=== PATIENT | female | born 1950 | race Caucasian/White ===

== ENCOUNTER → 2020-03-31 13:46 | Outpatient (CLI) | payer MEDICARE, SELFPAY ==
--- NOTE | ~2020-03-31 | US_ITS ---
US breast BI complete 03/31/2020 14:43 Indication: Follow-up bilateral breast masses Procedure: High-resolution bilateral breast ultrasound Comparison: 10/24/2019 and 06/13/2017 Findings: Right breast: At 12:00, 4 cm from the nipple, there is a 4 mm oval hypoechoic nodule, unchanged. No i nternal vascularity or posterior features. At 1:00, 2 cm from the nipple there is a 7 mm cyst. At 3:0 0, 2 cm from the nipple there is an oval circumscribed minimally complicated cyst measuring 8 mm. The re are multiple additional simple and complicated cysts of both breasts. At 11:00, 4 cm from the nipp le, there is an oval circumscribed hypoechoic mass measuring 5 mm with slightly lobulated margins. Th ere is posterior acoustic enhancement. This mass is unchanged. Left breast ultrasound: At 6:00, 1 cm from the nipple there is a 5 mm hypoechoic mass measuring 5 mm, without significant tyrone nge from prior study. No internal vascularity or significant posterior features. Impression: 1: Stable likely benign bilateral breast masses. BI-RADS CATEGORY 3-PROBABLY BENIGN FINDING RECOMMENDATION: Six-month follow-up diagnostic bilateral mammogram and ultrasound recommended. Reviewed, dictated and finalized at location A. Impression: 1: Stable likely benign bilateral breast masses. BI-RADS CATEGORY 3-PROBABLY BENIGN FINDING RECOMMENDATION: Six-month follow-up diagnostic bilateral mammogram and ultrasou nd recommended.
== END ==
PROVIDERS: PCP Emergency Medicine; Visit Provider Emergency Medicine
DX: N63.0 Unspecified lump in unspecified breast (principal); R92.8 Other abnormal and inconclusive findings on diagnostic imaging of breast
CPT/HCPCS: 76641

== ENCOUNTER 2020-04-19 11:27 | Emergency (ER) | payer MEDICARE, SELFPAY ==
[2020-04-19 11:59] VITALS: BP 154/78; PULSE 91; RESP 18; TEMP 37.2; O2SAT 98
[2020-04-19 12:16] LABS: Basophils Percent Auto 0.5 % (0.2-1.2); Eosinophils Absolute Auto 0.1 K/mm3 (0-0.3); Eosinophils Percent Auto 0.9 % (0-4.4); Hematocrit 41.4 % (37.0-47.0); Hemoglobin 13.4 g/dL (12.0-15.0); Immature Granulocyte Absolute 0.01 K/mm3 (0.00-0.031); Immature Granulocyte Percent A 0.2 % (0-0.5); Lymphocytes Absolute Auto 1.96 K/mm3 (0.9-3.2); Lymphocytes Percent Auto 34.9 % (18.3-44.2); Mean Corpuscular HGB Conc 32.4 g/dl (32-36); Mean Corpuscular Hemoglobin 28.7 pg (26-34); Mean Corpuscular Volume 88.7 fl (80-100); Mean Platelet Volume 10.2 fl (7.4-10.4); Monocytes Absolute Auto 0.4 K/mm3 (0.1-0.6); Monocytes Percent Auto 6.4 % (2.6-8.5); Neutrophils Absolute Auto 3.2 K/mm3 (1.3-6.7); Neutrophils Percent Auto 57.1 % (45.5-73.1); Platelet Count Result 236 k/mm3 (150-375); Red Blood Count 4.67 M/mm3 (4.2-5.4); Red Cell Distribution Width 12.9 % (11.5-14.5); White Blood Count 5.6 K/mm3 (4.5-10.0)
[2020-04-19 12:27] LABS: Alanine Aminotransferase 14 U/L (4-35); Albumin Level 4.5 g/dL (3.5-5.1); Alkaline Phosphatase 92 U/L (38-126); Aspartate Amino Transferase 34 U/L (14-36); Bilirubin,Total 0.6 mg/dL (0.2-1.3); Blood Urea Nitrogen 8 mg/dL (7-17); Calcium 9.2 mg/dL (8.4-10.2); Carbon Dioxide 26 mmol/L (22-30); Chloride 100 mmol/L (98-107); Estimated CRCL calculation 59 ml/min; Estimated Glomerular Filt Rate > 60; Glucose 100 mg/dL (65-105); Magnesium 1.9 mg/dL (1.6-2.3); Potassium 4.3 mmol/L (3.4-5.0); Sodium 136 mmol/L (137-145)
[2020-04-19 14:03] LABS: Add Urine Microscopic? NO; Appearance Urine Clear (Clear); Bilirubin Urine Negative (Negative); Blood Urine Negative (Negative); Color Urine Straw (Yellow); Glucose Urine UA Negative (Negative); Ketones Urine Negative (Negative); Leukocyte Esterase Ur Negative LEU/UL (Negative); Nitrate Urine Negative (Negative); Protein Urine Negative (Negative); Specific Grav Ur 1.005 (1.001-1.035); Urobilinogen Urine Negative mg/dL (<2.0)
[2020-04-19 14:44] VITALS: BP 156/71; PULSE 76; RESP 18; O2SAT 98
--- NOTE | 2020-04-19 14:49 | ED.GENADULT ---
HPI - General Adult General Chief complaint: Recheck/Abnormal Lab/Rx Stated complaint: high blood sugar Time Seen by Provider: 04/19/20 14:35 History of Present Illness HPI narrative: Patient is a 69 y/o female complaining of high blood sugar for last 2-3 days. She states that her BS was in 500s 2 days ago. She denies any fever, frequent urination, dry mouth, abdominal pain or vomiting. There is no alleviating or exacerbation factor. She takes Metformin 850 mg twice daily. Related Data Home Medications Medication Instructions Recorded Confirmed aspirin 81 mg chewable tablet 81 mg PO .COMPLEX 11/19/19 biotin 10,000 mcg-keratin 100 mg See Rx Instructions .ROUTE .COMPLEX 11/19/19 tablet esomeprazole magnesium 40 mg 40 mg PO .daily in the am cap 11/19/19 capsule,delayed release estradiol 0.5 mg tablet 0.5 mg PO .COMPLEX 11/19/19 levothyroxine 50 mcg tablet 50 mcg PO DAILY 11/19/19 rosuvastatin 10 mg tablet 10 mg PO .daily at bedtime tablet 11/19/19 metformin 850 mg tablet 850 mg PO BID 04/19/20 Allergies Allergy/AdvReac Type Severity Reaction Status Date / Time propoxyphene Allergy Severe TONGUE Verified 04/19/20 14:44 SWELLING AND STOPPED BREATHING acetaminophen Allergy Unknown Unknown Unverified 04/19/20 14:44 [facility] Review of Systems Constitutional: Constitutional: Denies chills, Denies fever(s), Denies headache(s) and Denies weakness Eyes: Eyes: Denies blurry vision ENT: Denies headache(s) and Denies neck pain Cardiovascular: Cardiovascular: Denies chest pain and Denies dyspnea Respiratory: Respiratory: Denies cough and Denies dyspnea Gastrointestinal: Gastrointestinal: Denies abdominal pain, Denies diarrhea, Denies nausea and Denies vomiting Genitourinary: Genitourinary: Denies hematuria and Denies dysuria Musculoskeletal: Musculoskeletal: Denies back pain and Denies neck pain Neurologic: Denies headache(s) and Denies weakness PMFSH Past Medical History Medical History Arthritis Breast lump Cataracts, both eyes Diabetes Dizziness Fainting Forgetfulness Goiter Hernia High cholesterol Nervousness Thyroid-related proptosis Surgical History Surgical History H/O: hysterectomy (~1999) History of cataract surgery (~2003) History of cholecystectomy (~1989) Hx of appendectomy (~1979) Hx of tonsillectomy (~1974) Family History Family History Father , 65 Emphysema, unspecified Mother , 43 Heart attack Social History Social History Smoking status: Never smoker Alcohol intake: never Substance use: never Exam Const: General: no acute distress and well developed Orientation/consciousness: oriented to person, oriented to place, oriented to time and patient oriented x3 HENMT: Head: normocephalic Ears: external ears normal General nose exam: Normal external nose present Eyes: General: appearance normal, both eyes and all related structures Conjunctivae: conjunctivae normal Neck: Neck: normal visual inspection and full ROM Chest: Chest palpation & inspection: normal inspection of the chest and no tenderness Resp: Effort & Inspection: normal respiratory effort Auscultation: clear to auscultation bilaterally Cardio: Rate: regular rate Rhythm: regular rhythm GI: GI Palp: No abdominal tenderness and Yes Soft to palpation Skin: General skin exam: normal color and turgor normal Neuro: General: oriented to person, oriented to place, oriented to time and patient oriented x3 Cognition (Neuro): normal cognition Extrem: General: normal to inspection, full ROM and no pedal edema Psych: Appearance: grossly normal Mental Status: mental status grossly normal Affect: normal affect Course Vital Signs Vital si
[2020-04-19 15:54] VITALS: PULSE 78; RESP 16; O2SAT 98
== END 2020-04-19 15:55 | disposition home or self-care (01) ==
PROVIDERS: General Practice; Emergency Provider Emergency Medicine; PCP Emergency Medicine
DX: E11.9 Type 2 diabetes mellitus without complications (principal); Z79.84 Long term (current) use of oral hypoglycemic drugs; M19.90 Unspecified osteoarthritis, unspecified site; E04.9 Nontoxic goiter, unspecified
CPT/HCPCS: 36415; 80053; 81003; 82010; 83735; 84100; 85025; 99283

== ENCOUNTER 2020-05-14 15:26 | Emergency (ER) | payer MEDICARE, SELFPAY ==
--- NOTE | ~2020-05-14 | CT_ITS ---
EXAMINATION: CT abdomen pelvis w con EXAM DATE: 05/14/2020 19:17 INDICATION: Left lower quadrant pain for one month radiating to the left side of the chest. TECHNIQUE: Spiral CT of the abdomen and pelvis was performed following intravenous injection of 100 m L Omnipaque 350. Axial, coronal and sagittal images were reviewed. The dose-length product (DLP) fo r this examination was 470.21 mGy-cm. The exposure was tailored according to patient size (auto mA e xposure control), and iterative reconstruction (ASIR) was used as additional dose reduction technique . Comparison is made to prior examination from 10/09/2015. FINDINGS: There is right liver lobe cyst measuring 2 cm. The liver, spleen, adrenal glands and pancr eas are otherwise unremarkable. There are cholecystectomy clips. Portal and splenic veins are paten t. Kidneys enhance symmetrically. There is no hydronephrosis. The uterus is not identified and cote s likely been surgically resected. The bladder is unremarkable. There is no retroperitoneal or pelv ic lymphadenopathy. There is mild scattered arteriosclerotic disease. There is mild inflammation along the mesenteric side of the transverse colon, possible mild acute div erticulitis. Mild to moderate scattered sigmoid predominant colonic diverticulosis. The appendix is n ot positively visualized. There is no pericecal inflammatory change to suggest appendicitis. There is suspicion of gastric pyloric wall edema, could be peptic ulcer disease. There is small to moderat e sliding gastroesophageal hiatal hernia. There is expected amount of colonic stool. No free intra peritoneal gas. The heart is normal in size. There are no pericardial or pleural effusions. The l samantha bases are unremarkable. There are no osteoblastic or osteolytic lesions identified. IMPRESSION: 1. Suspicion of gastric pyloric peptic ulcer disease. 2. Possible transverse colonic acute uncomplicated diverticulitis. 3. These 2 findings have been indicated on axial images 57, 76 respectively. 4. Small to moderate hiatal hernia. Reviewed, dictated and finalized at location A.
[2020-05-14 16:04] VITALS: BP 140/82; PULSE 82; RESP 16; TEMP 37; O2SAT 100
[2020-05-14 16:19] LABS: Basophils Percent Auto 0.4 % (0.2-1.2); Eosinophils Absolute Auto 0.1 K/mm3 (0-0.3); Eosinophils Percent Auto 1.1 % (0-4.4); Hematocrit 39.1 % (37.0-47.0); Hemoglobin 12.6 g/dL (12.0-15.0); Immature Granulocyte Absolute 0.02 K/mm3 (0.00-0.031); Immature Granulocyte Percent A 0.3 % (0-0.5); Lymphocytes Absolute Auto 3.07 K/mm3 (0.9-3.2); Lymphocytes Percent Auto 42.5 % (18.3-44.2); Mean Corpuscular HGB Conc 32.2 g/dl (32-36); Mean Corpuscular Hemoglobin 29.2 pg (26-34); Mean Corpuscular Volume 90.5 fl (80-100); Mean Platelet Volume 10.2 fl (7.4-10.4); Monocytes Absolute Auto 0.5 K/mm3 (0.1-0.6); Monocytes Percent Auto 7.1 % (2.6-8.5); Neutrophils Absolute Auto 3.5 K/mm3 (1.3-6.7); Neutrophils Percent Auto 48.6 % (45.5-73.1); Platelet Count Result 228 k/mm3 (150-375); Red Blood Count 4.32 M/mm3 (4.2-5.4); Red Cell Distribution Width 12.7 % (11.5-14.5); White Blood Count 7.2 K/mm3 (4.5-10.0)
[2020-05-14 16:30] LABS: Alanine Aminotransferase 14 U/L (4-35); Albumin Level 4.2 g/dL (3.5-5.1); Alkaline Phosphatase 61 U/L (38-126); Anion Gap 8 mmol/L (8-16); Aspartate Amino Transferase 27 U/L (14-36); Bilirubin,Total 0.2 mg/dL (0.2-1.3); Blood Urea Nitrogen 10 mg/dL (7-17); Calcium 9.1 mg/dL (8.4-10.2); Carbon Dioxide 27 mmol/L (22-30); Chloride 103 mmol/L (98-107); Estimated CRCL calculation 51 ml/min; Estimated Glomerular Filt Rate > 60; Glucose 107 mg/dL (65-105); Lipase 73 U/L (23-300); Potassium 3.9 mmol/L (3.4-5.0); Sodium 138 mmol/L (137-145)
[2020-05-14 17:13] LABS: Add Urine Microscopic? NO; Appearance Urine Clear (Clear); Bilirubin Urine Negative (Negative); Blood Urine Negative (Negative); Color Urine Yellow (Yellow); Glucose Urine UA Negative (Negative); Ketones Urine Negative (Negative); Leukocyte Esterase Ur Negative LEU/UL (Negative); Nitrate Urine Negative (Negative); Protein Urine Negative (Negative); Specific Grav Ur 1.016 (1.001-1.035); Urobilinogen Urine Negative mg/dL (<2.0)
[2020-05-14 18:07] VITALS: BP 150/86; PULSE 85; RESP 18; O2SAT 96
--- NOTE | 2020-05-14 19:37 | ED.GENADULT ---
HPI - General Adult General Chief complaint: Abdominal Pain Stated complaint: left abd pain Time Seen by Provider: 05/14/20 17:52 History of Present Illness HPI narrative: Patient is a 69-year-old female who presents to the ER with left lower quadrant abdominal pain. Intermittent over the last month. Saw her GI doctor last week he said if patient had recurrent pain then she may need to come be evaluated. Pain came back again very sharp this morning. It only last for about 10 seconds at a time. There is no radiation. Is not associate with eating or drinking or urinating or stooling. Related Data Home Medications Medication Instructions Recorded Confirmed aspirin 81 mg chewable tablet 81 mg PO .COMPLEX 11/19/19 biotin 10,000 mcg-keratin 100 mg See Rx Instructions .ROUTE .COMPLEX 11/19/19 tablet esomeprazole magnesium 40 mg 40 mg PO .daily in the am cap 11/19/19 capsule,delayed release estradiol 0.5 mg tablet 0.5 mg PO .COMPLEX 11/19/19 levothyroxine 50 mcg tablet 50 mcg PO DAILY 11/19/19 rosuvastatin 10 mg tablet 10 mg PO .daily at bedtime tablet 11/19/19 metformin 850 mg tablet 850 mg PO BID 04/19/20 Allergies Allergy/AdvReac Type Severity Reaction Status Date / Time propoxyphene Allergy Severe TONGUE Verified 05/14/20 16:09 SWELLING AND STOPPED BREATHING Review of Systems Review of Systems: All systems reviewed & are unremarkable except as noted in HPI and below Constitutional: Constitutional: Denies chills, Denies fever(s) and Denies weakness ENT: Denies nasal congestion and Denies sore throat Gastrointestinal: Gastrointestinal: Reports abdominal pain, Denies diarrhea, Denies nausea and Denies vomiting PMFSH Social History Social History Smoking status: Never smoker Alcohol intake: never Substance use: never Gender identity (if verbalized by the patient): Female Exam Narrative: Exam Narrative: GENERAL: Well-appearing, well-nourished, and in no acute distress. HEAD: Normocephalic, atraumatic. ENT: Mucous membranes moist. CHEST: Clear to auscultation. No respiratory distress. HEART: Regular rate and rhythm. Normal peripheral pulses. ABDOMEN: Soft, ttp to LLQ w/o guarding, nondistended. EXTREMITIES: Normal range of motion. No edema. SKIN: Warm, dry, no rash. NEURO: Alert and oriented x3. Course Course Emergency Course: Patient informed of results. Discharge home. Vital Signs Vital signs: Vital Signs Temperature 98.6 F 05/14/20 16:04 Pulse Rate 82 05/14/20 16:04 Respiratory Rate 16 05/14/20 16:04 Blood Pressure 140/82 05/14/20 16:04 Pulse Oximetry 100 05/14/20 16:04 Temperature 98.6 F 05/14/20 16:04 Pulse Rate 85 05/14/20 18:07 Respiratory Rate 18 05/14/20 18:07 Blood Pressure 150/86 H 05/14/20 18:07 Pulse Oximetry 96 05/14/20 18:07 Medical Decision Making Vital Signs Vital Signs: Vital Signs Temperature 98.6 F 05/14/20 16:04 Pulse Rate 82 05/14/20 16:04 Respiratory Rate 16 05/14/20 16:04 Blood Pressure 140/82 05/14/20 16:04 Pulse Oximetry 100 05/14/20 16:04 Temperature 98.6 F 05/14/20 16:04 Pulse Rate 85 05/14/20 18:07 Respiratory Rate 18 05/14/20 18:07 Blood Pressure 150/86 H 05/14/20 18:07 Pulse Oximetry 96 05/14/20 18:07 Lab Data Result diagrams: 05/14/20 16:10 05/14/20 16:10 Labs: Lab Results 05/14/20 05/14/20 05/14/20 Range/Units 16:10 16:10 16:25 WBC 7.2 (4.5-10.0) K/mm3 RBC 4.32 (4.2-5.4) M/mm3 Hgb 12.6 (12.0-15.0) g/dL Hct 39.1 (37.0-47.0) % MCV 90.5 (80-100) fl MCH 29.2 (26-34) pg MCHC 32.2 (32-36) g/dl RDW 12.7 (11.5-14.5) % Plt Count 228 (150-375) k/mm3 MPV 10.2 (7.4-10.4) fl Immature Gran % (Auto) 0.3 (0-0.5) % Neut % (Auto) 48.6 (45.5-73.1) % Lymph % (Auto) 42.5 (18.3-44.2) % [place] % (Auto) 7.1
[2020-05-14 20:23] VITALS: BP 143/70; PULSE 82; RESP 17; O2SAT 95
== END 2020-05-14 20:24 | disposition home or self-care (01) ==
PROVIDERS: Emergency Provider Emergency Medicine; PCP Emergency Medicine
DX: K57.92 Diverticulitis of intestine, part unspecified, without perforation or abscess without bleeding (principal); K25.9 Gastric ulcer, unspecified as acute or chronic, without hemorrhage or perforation; K44.9 Diaphragmatic hernia without obstruction or gangrene
CPT/HCPCS: 36415; 74177; 80053; 81003; 83690; 85025; 99284; Q9967

== ENCOUNTER 2020-08-13 10:53 | Emergency (ER) | payer MEDICARE, SELFPAY ==
[2020-08-13] VITALS (18 sets, daily range): BP systolic 124–141; BP diastolic 58–86; PULSE 76–122; RESP 16–24; TEMP 36.7; O2SAT 94–99
--- NOTE | ~2020-08-13 | CT_ITS ---
EXAMINATION: CTA chest PE protocol DATE: 08/13/2020 12:58 INDICATION: Chest pain. Cough. TECHNIQUE: Computed tomography angiography (CTA) of the chest was performed with 100 mL Omnipaque-350 intravenous contrast timed to evaluate the pulmonary arteries. Coronal maximum intensity projection 3D-reconstructions were created by the technologist. Automated exposure control and iterative reconst ruction technique were employed. The dose-length product was 194.82 mGy-cm. COMPARISON: CT abdomen and pelvis 03/14/2020 FINDINGS: There is mild emphysema. There is mild scarring at the lung apices. There is mild atelectas is bilaterally. There is a small groundglass opacity in superior segment right lower lobe. There are mild peripheral groundglass opacities in right upper lobe. There are patchy airspace opacities in lef t upper lobe and left lower lobe, worse in the lower lobe. Calcified right lung nodules and calcified right hilar and mediastinal lymph nodes are consistent with old granulomatous disease. No pleural ef fusion. The heart size is normal. No pericardial effusion. There is a moderate-sized sliding hiatal h ernia. There are changes of cholecystectomy. There is a 1.8 cm cyst in the liver. There is no pulmona ry embolus. There is mild thoracic spondylosis. IMPRESSION: 1. No pulmonary embolus. 2. Scattered groundglass opacities in the lungs, left worse than right, consistent with atypical pneu monia such as COVID-19 pneumonia. 3. Mild emphysema. 4. Moderate-sized sliding hiatal hernia. Reviewed, dictated and finalized at location A. RCOLLAR BASTER IMPRESSION: 1. No pulmonary embolus. 2. Scattered groundglass opacities in the lungs, left worse than right, consist ent with atypical pneumonia such as COVID-19 pneumonia. 3. Mild emphysema. 4. Moderate-sized sliding hiatal hernia.
--- NOTE | ~2020-08-13 | XR_ITS ---
EXAMINATION: XR chest 1V portable DATE: 08/13/2020 11:45 INDICATION: Chest pain and fever. TECHNIQUE: A single frontal view of the chest was obtained. COMPARISON: Chest 2 views 04/09/2019, CT abdomen and pelvis 05/14/2020, chest CT 06/14/2013 FINDINGS: There are lucencies in the upper lobes, consistent with emphysema. No pleural effusion or p neumothorax. The heart size is normal. IMPRESSION: 1. Emphysema. Reviewed, dictated and finalized at location A. BER MAGISTRATE IMPRESSION: 1. Emphysema.
--- NOTE | 2020-08-13 11:08 | ECG_ITS ---
Measurements Intervals [place] Rate: 108 P: 47 CA: 187 QRS: 47 QRSD: 93 T: 44 QT: 321 QTc: 431 Interpretive Statements SINUS TACHYCARDIA ABNORMAL ECG Electronically Signed On 08-13-2020 11:28:49 [employer] by Kalyan Khan D.O.
--- NOTE | 2020-08-13 11:12 | ED.WEAKNESS ---
HPI - Weakness General Chief complaint: Weakness Stated complaint: I think I have Covid Time Seen by Provider: 08/13/20 11:09 Source: patient Mode of arrival: ambulatory Limitations: no limitations History of Present Illness HPI Narrative: Patient is a 69-year-old female who presents for evaluation of myalgias, intermittent fever, and an earlier episode of chest pain this morning that has since resolved. Patient states that her physician, Dr. Carpenter, referred her for a Covid swab given her symptoms have been present for over a week, however she started to have chest pain on her way to the testing center, thus decided to come to the emergency department. Patient denies any current chest pain. She states it felt as if a bubble was in her chest. Chest pain was this morning, and pt had symptoms within four hour window. She denied any radiation of the pain to her jaw, back or shoulder. She stated it was mostly over her central chest. She denies any abdominal pain, associated vomiting or diaphoresis. She has had intermittent fever as well as nausea. She denies any numbness, states she feels diffusely weak but has been able to tolerate oral intake and has been walking without difficulty. She reports dry cough as well. She reports loss of sense of taste and smell. Related Data Home Medications Medication Instructions Recorded Confirmed aspirin 81 mg chewable tablet 81 mg PO .COMPLEX 11/19/19 biotin 10,000 mcg-keratin 100 mg See Rx Instructions .ROUTE .COMPLEX 11/19/19 tablet levothyroxine 50 mcg tablet 50 mcg PO DAILY 11/19/19 rosuvastatin 10 mg tablet 10 mg PO .daily at bedtime tablet 11/19/19 metformin 850 mg tablet 850 mg PO BID 04/19/20 Allergies Allergy/AdvReac Type Severity Reaction Status Date / Time propoxyphene Allergy Severe TONGUE Verified 05/14/20 16:09 SWELLING AND STOPPED BREATHING Review of Systems Review of Systems: Narrative: CONSTITUTIONAL: Reports fever and chills EYES: Denies visual changes, redness, or discharge. ENT: Reports rhinorrhea and congestion CARDIOVASCULAR: Chest pain currently resolved RESPIRATORY: Reports dry cough and shortness of breath GASTROINTESTINAL: Denies abdominal pain, reports nausea without vomiting GENITOURINARY: Denies dysuria or hematuria. SKIN: Denies rash or itching. MUSCULOSKELETAL: Denies back pain, joint pain, reports myalgias NEUROLOGIC: Denies headache, numbness, or weakness. PMFSH Past Medical History Medical History (Updated 08/13/20 @ 13:37 by Marina Quiros MD) Arthritis Breast lump Cataracts, both eyes Diabetes Dizziness Fainting Forgetfulness Goiter Hernia High cholesterol Nervousness Thyroid-related proptosis Surgical History Surgical History H/O: hysterectomy (~1999) History of cataract surgery (~2003) History of cholecystectomy (~1989) Hx of appendectomy (~1979) Hx of tonsillectomy (~1974) Family History Family History Father , 65 Emphysema, unspecified Mother , 43 Heart attack Social History Social History Smoking status: Never smoker Alcohol intake: never Substance use: never Gender identity (if verbalized by the patient): Female Exam Narrative: Exam Narrative: GENERAL: Awake, alert, conversant HEAD: Normocephalic, atraumatic. EYES: PERRLA and EOMI. ENT: Nares clear, no rhinorrhea or epistaxis. Mucous membranes moist. NECK: Supple. CHEST: No respiratory distress, breathing even and non labored HEART: Tachycardic rate, sinus rhythm ABDOMEN:Non distended, non tender EXTREMITIES: Normal range of motion. No edema. SKIN: Warm, dry, no rash. NEURO:No focal deficits. Alert and oriented x3. Extremity strength is 5 out of 5 bilateral upper and lower extremities. Ambulatory with a narrow based, steady gait.
[2020-08-13 11:27] LABS: Basophils Percent Auto 0.3 % (0.2-1.2); Eosinophils Percent Auto 0.3 % (0-4.4); Hematocrit 38.4 % (37.0-47.0); Hemoglobin 12.5 g/dL (12.0-15.0); Immature Granulocyte Absolute 0.02 K/mm3 (0.00-0.031); Immature Granulocyte Percent A 0.5 % (0-0.5); Lymphocytes Percent Auto 33.8 % (18.3-44.2); Mean Corpuscular HGB Conc 32.6 g/dl (32-36); Mean Corpuscular Hemoglobin 29.3 pg (26-34); Mean Corpuscular Volume 90.1 fl (80-100); Mean Platelet Volume 9.8 fl (7.4-10.4); Monocytes Absolute Auto 0.4 K/mm3 (0.1-0.6); Monocytes Percent Auto 10.6 % (2.6-8.5); Neutrophils Absolute Auto 2.1 K/mm3 (1.3-6.7); Neutrophils Percent Auto 54.5 % (45.5-73.1); Platelet Count Result 151 k/mm3 (150-375); Red Blood Count 4.26 M/mm3 (4.2-5.4); White Blood Count 3.9 K/mm3 (4.5-10.0)
[2020-08-13 11:39] LABS: Alanine Aminotransferase 17 U/L (4-35); Alkaline Phosphatase 70 U/L (38-126); Anion Gap 9 mmol/L (8-16); Aspartate Amino Transferase 39 U/L (14-36); Bilirubin,Total 0.5 mg/dL (0.2-1.3); Blood Urea Nitrogen 8 mg/dL (7-17); Calcium 8.9 mg/dL (8.4-10.2); Carbon Dioxide 28 mmol/L (22-30); Chloride 96 mmol/L (98-107); Estimated CRCL calculation 59 ml/min; Estimated Glomerular Filt Rate > 60; Glucose 96 mg/dL (65-105); Potassium 3.7 mmol/L (3.4-5.0); Sodium 133 mmol/L (137-145)
[2020-08-13] MEDS: SODIUM CHLORIDE 0.9% IV 1,000 ML 999 ML IV CONT (11:42)
[2020-08-13 11:45] LABS: INR 0.9; Prothrombin Time 13.2 Seconds (11.1-14.7)
[2020-08-13 11:46] LABS: Partial Thromboplastin Time 27.5 SECONDS (22.3-36.8)
[2020-08-13 11:48] LABS: D Dimer 0.61 ug/mL (<0.48)
[2020-08-13 12:26] LABS: Troponin I < 0.012 ng/mL (0.000-0.034)
--- NOTE | 2020-08-13 14:10 | PC.NURSE ---
REPORT TO VANIA PRUITT AT THIS TIME, SHE HAS ASSUMED PT CARE.
[2020-08-13 14:49] LABS: Troponin I < 0.012 ng/mL (0.000-0.034)
[2020-08-14 01:02] LABS: SARS-CoV-2 RNA PCR Positive
== END 2020-08-13 15:09 | disposition home or self-care (01) ==
PROVIDERS: Emergency Provider Emergency Medicine; PCP Emergency Medicine
DX: U07.1 COVID-19 (principal); R50.9 Fever, unspecified; M19.90 Unspecified osteoarthritis, unspecified site; E78.00 Pure hypercholesterolemia, unspecified; E11.9 Type 2 diabetes mellitus without complications; Z98.49 Cataract extraction status, unspecified eye; Z79.84 Long term (current) use of oral hypoglycemic drugs; Z79.82 Long term (current) use of aspirin; J43.9 Emphysema, unspecified; K44.9 Diaphragmatic hernia without obstruction or gangrene; R00.0 Tachycardia, unspecified; R91.8 Other nonspecific abnormal finding of lung field
CPT/HCPCS: 36415; 71045; 71275; 80053; 84484; 85025; 85380; 85610; 85730; 87635; 93005; 96360; 99284; C9803; J7030; Q9967; U0003

== ENCOUNTER 2020-11-16 12:38 | Observation (INO) | payer MEDICARE, SELFPAY ==
[2020-11-16] VITALS (22 sets, daily range): BP systolic 130–149; BP diastolic 54–122; PULSE 72–100; RESP 10–24; TEMP 36.2–36.4; O2SAT 95–100; BMI 22.8
--- NOTE | ~2020-11-16 | XR_ITS ---
EXAMINATION: XR chest 2V DATE: 11/16/2020 13:55 INDICATION: Chest pain TECHNIQUE: AP and lateral views of the chest are obtained. COMPARISON: 08/13/2020 FINDINGS: The lungs are free of acute opacities. Calcified pulmonary nodules are consistent with old granulomatous disease. There is no pleural effusion or pneumothorax. The cardiomediastinal silhouette is normal. There is mild thoracic spondylosis. Cholecystectomy clips are noted. IMPRESSION: 1. No acute cardiopulmonary abnormality. Reviewed, dictated and finalized at location A. Y EXTRACTOR
--- NOTE | 2020-11-16 13:02 | ECG_ITS ---
Measurements Intervals [place] Rate: 90 P: 48 TN: 176 QRS: 51 QRSD: 101 T: 55 QT: 350 QTc: 430 Interpretive Statements SINUS RHYTHM BORDERLINE ST ABNORMALITY- ANTERIOR LEADS BASELINE WANDER- II, III, AVF, V5-V6 BORDERLINE ECG Electronically Signed On 11-16-2020 13:04:42 [employer] by Kalyan Khan D.O.
[2020-11-16] MEDS: ASPIRIN 81 MG CHEWABLE TABLET 324 MG PO (13:25)
--- NOTE | 2020-11-16 13:29 | ED.CHESTPAIN ---
HPI - Chest Pain General Chief Complaint: Chest Pain Stated Complaint: chest pain Time Seen by Provider: 11/16/20 12:53 Source: patient Mode of arrival: ambulatory Limitations: no limitations History of Present Illness HPI narrative: This patient is a 69 year old female with history of hyperlipidemia, Diabetes, valvular disease who presents for evaluation of substernal chest pain. She developed pain at midnight last night, and it was constant until 9 am this morning. She describes pain has burning. She reports associated diaphoresis. She denies exertion or cough or inspiratory as exacerbating factor. She denies chest pain currently. She denies nausea, vomiting or fever. She took mariah seltzer and her pain has resolved. She is scheduled to see Dr Khan on November 26 for evaluation leaky aortic valve. Related Data Home Medications Medication Instructions Recorded Confirmed aspirin 81 mg chewable tablet 81 mg PO .COMPLEX 11/19/19 10/27/20 biotin 10,000 mcg-keratin 100 mg See Rx Instructions .ROUTE .COMPLEX 11/19/19 10/27/20 tablet levothyroxine 50 mcg tablet 50 mcg PO DAILY 11/19/19 10/27/20 rosuvastatin 10 mg tablet 10 mg PO .daily at bedtime tablet 11/19/19 10/27/20 metformin 850 mg tablet 850 mg PO BID 04/19/20 10/27/20 Allergies Allergy/AdvReac Type Severity Reaction Status Date / Time propoxyphene Allergy Severe TONGUE Verified 11/16/20 13:59 SWELLING AND STOPPED BREATHING Review of Systems Review of Systems: All systems reviewed & are unremarkable except as noted in HPI and below Constitutional: Constitutional: Denies chills and Denies fever(s) Cardiovascular: Cardiovascular: Reports chest pain and Denies radiating jaw, neck or arm pain Respiratory: Respiratory: Denies cough and Denies dyspnea PMF Past Medical History Medical History (Updated 11/16/20 @ 15:03 by Kalyan Khan DO) Arthritis Breast lump Cataracts, both eyes Diabetes Dizziness Fainting Forgetfulness Goiter Hernia High cholesterol Nervousness Thyroid-related proptosis Surgical History Surgical History H/O: hysterectomy (~1999) History of cataract surgery (~2003) History of cholecystectomy (~1989) Hx of appendectomy (~1979) Hx of tonsillectomy (~1974) Family History Family History Father , 65 Emphysema, unspecified Mother , 43 Heart attack Social History Social History Smoking status: Former smoker Alcohol intake: never Substance use: never Gender identity (if verbalized by the patient): Female Exam Narrative: Exam Narrative: GENERAL: Well-appearing, well-nourished, and in no acute distress. HEAD: Normocephalic, atraumatic EYES: PERRLA and EOMI, conjunctiva clear without discharge THROAT:Mucous membranes moist, Oropharynx normal without erythema, exudate, peritonsillar swelling or fluctuance NECK: Supple, without lymphadenopathy or mass RESPIRATORY: No respiratory distress, Airway patent, Respirations non-labored, Clear to auscultation without rales, rhonchi or wheeze HEART: Regular rate and rhythm. No murmur heard. Normal peripheral pulses. ABDOMEN: Soft, nontender, nondistended, normal active bowel sounds. No masses. No rebound or guarding, No organomegaly. EXTREMITIES: No edema, normal strength with full range of motion. SKIN: Warm, dry, normal color without rash NEURO: Alert and oriented x3. CN 2-12 grossly intact. No focal deficits. PSYCH: Normal mood and affect. Course Reevaluation(s) Reevaluation #1: I discussed with patient that she will be admitted for evaluation of chest pain due to high risk. She is agreeable. Date: 11/16/20 Time: 14:36 Consultations Consultation #1: Dr. Khan agrees to consult and he is in ER now to evaluation patient. He may perform stress test rae
[2020-11-16 13:37] LABS: Basophils Percent Auto 0.4 % (0.2-1.2); Eosinophils Absolute Auto 0.1 K/mm3 (0-0.3); Eosinophils Percent Auto 0.7 % (0-4.4); Hemoglobin 12.7 g/dL (12.0-15.0); Immature Granulocyte Absolute 0.02 K/mm3 (0.00-0.031); Immature Granulocyte Percent A 0.3 % (0-0.5); Lymphocytes Absolute Auto 2.39 K/mm3 (0.9-3.2); Lymphocytes Percent Auto 35.3 % (18.3-44.2); Mean Corpuscular HGB Conc 32.6 g/dl (32-36); Mean Corpuscular Hemoglobin 29.1 pg (26-34); Mean Corpuscular Volume 89.4 fl (80-100); Mean Platelet Volume 10.8 fl (7.4-10.4); Monocytes Absolute Auto 0.5 K/mm3 (0.1-0.6); Monocytes Percent Auto 7.2 % (2.6-8.5); Neutrophils Absolute Auto 3.8 K/mm3 (1.3-6.7); Neutrophils Percent Auto 56.1 % (45.5-73.1); Platelet Count Result 221 k/mm3 (150-375); Red Blood Count 4.36 M/mm3 (4.2-5.4); Red Cell Distribution Width 12.7 % (11.5-14.5); White Blood Count 6.8 K/mm3 (4.5-10.0)
[2020-11-16 13:49] LABS: Alanine Aminotransferase 15 U/L (4-35); Albumin Level 4.2 g/dL (3.5-5.1); Alkaline Phosphatase 59 U/L (38-126); Anion Gap 7 mmol/L (8-16); Aspartate Amino Transferase 31 U/L (14-36); Bilirubin,Total 0.5 mg/dL (0.2-1.3); Blood Urea Nitrogen 18 mg/dL (7-17); Calcium 9.5 mg/dL (8.4-10.2); Carbon Dioxide 30 mmol/L (22-30); Chloride 103 mmol/L (98-107); Estimated CRCL calculation 59 ml/min; Estimated Glomerular Filt Rate > 60; Glucose 96 mg/dL (65-105); Lipase 111 U/L (23-300); Potassium 4.3 mmol/L (3.4-5.0); Sodium 140 mmol/L (137-145)
[2020-11-16 13:59] LABS: INR 0.9; Prothrombin Time 12.2 Seconds (11.1-14.7)
[2020-11-16 14:00] LABS: Partial Thromboplastin Time 22.5 SECONDS (22.3-36.8)
[2020-11-16 14:01] LABS: Troponin I < 0.012 ng/mL (0.000-0.034)
--- NOTE | 2020-11-16 14:36 | PC.NURSE ---
resting on stretcher. BP cuff adjusted. changed to 30 minute interval due to patient's complaints. planning for possible admission. denies pain at this time.
--- NOTE | 2020-11-16 15:05 | PM.CNCAR ---
Assessment and Plan Assessment and plan (1) Chest pain: Code(s): R07.9 - Chest pain, unspecified Status: Acute Assessment and Plan: Atypical. Could be heartburn related. 1st EKG and troponin are unremarkable. If next 2 sets are negative, obtain stress echo in AM. (2) Aortic regurgitation: Code(s): I35.1 - Nonrheumatic aortic (valve) insufficiency Status: Acute Assessment and Plan: Obtain echo. (3) HTN (hypertension): Code(s): I10 - Essential (primary) hypertension Status: Acute Assessment and Plan: Stable. (4) HLD (hyperlipidemia): Code(s): E78.5 - Hyperlipidemia, unspecified Status: Acute History of Present Illness History of Present Illness Consult date/time: 11/16/20 15:05 Reason for consult: Chest pain. 69 yr old phu who is my regular cardiology patient who I saw for the first time a few weeks ago presents to ED with chest pain. She has a history of DM, hypertension, dyslipidemia, had covid on 08/13/20. Reports that she went to bed last night at midnight and immediately she felt an ache/burning sensation in mid lower chest region. Currently it is at 1-2/10 in intensity. She admits to having heart cruz with hiatal hernia but this is a little different from that. Thus far EKG and first troponin are unremarkable. She has recovered fully from covid symptoms of severe fatigue and sob. She can walk 1 mile without any problems. Reports ongoing intermittent palpitations at night that wakes her up since a year ago when she was evaluated by Dr. Gleason at [place] with a holter and echo, and was told she had a leaky valve. It happens about twice a week. She reports ongoing for the past year mild discomfort below her left rib cage at rest. Denies orthopnea, PND, edema, dizziness. Cardiovascular studies: 11/16/20 EKG: Sinus rhythm, borderline ST abnormality in anterior leads. 06/12/19 Echo at [facility]: EF 60%, grade I diastolic dysfunction, mod AI ,mild TR. Reason For Visit: chest pain Review of Systems Review of Systems: All systems reviewed & are unremarkable except as noted in HPI and below Constitutional: Constitutional: Reports as per HPI, Denies chills and Denies fatigue Cardiovascular: Cardiovascular: Reports as per HPI, Reports chest pain, Denies claudication and Denies leg edema Respiratory: Respiratory: Reports as per HPI and Denies dyspnea Gastrointestinal: Gastrointestinal: Reports as per HPI and Reports heartburn Genitourinary: Genitourinary: Reports as per HPI and Denies urinary frequency Neurologic: Reports as per HPI, Denies dizziness and Denies syncope [facility] Past Medical History Medical History (Updated 11/16/20 @ 15:03 by Kalyan Khan DO) Arthritis Breast lump Cataracts, both eyes Diabetes Dizziness Fainting Forgetfulness Goiter Hernia High cholesterol Nervousness Thyroid-related proptosis Surgical History Surgical History H/O: hysterectomy (~1999) History of cataract surgery (~2003) History of cholecystectomy (~1989) Hx of appendectomy (~1979) Hx of tonsillectomy (~1974) Family History Family History Father , 65 Emphysema, unspecified Mother , 43 Heart attack Social History Social History Smoking status: Former smoker Alcohol intake: never Substance use: never Gender identity (if verbalized by the patient): Female Meds Home Medications and Allergies Home Medications Medication Instructions Recorded Confirmed Type aspirin 81 mg chewable tablet 81 mg PO .COMPLEX 11/19/19 10/27/20 History biotin 10,000 mcg-keratin 100 mg See Rx Instructions .ROUTE .COMPLEX 11/19/19 10/27/20 History tablet levothyroxine 50 mcg tablet 50 mcg PO DAILY 11/19/19 10/27/20 History rosuvastatin 10 mg tablet 10 mg PO .
[2020-11-16 16:53] LABS: Troponin I < 0.012 ng/mL (0.000-0.034)
--- NOTE | 2020-11-16 17:04 | PC.NURSE ---
attempted to call report. RN not ready. SBAR just received.
[2020-11-16 18:18] LABS: Glucose Point of Care 147 (65-105)
--- NOTE | 2020-11-16 18:21 | ADMGEN ---
This patient, Naina Douglas, was admitted to IMU Room 206-01 on 11/16/2020 at 1725. Patient/family oriented to hospital policies and general routines including ID bracelet, bed and alarms, visiting hours, pain management, procedures, bathroom and other care routines, personal items, smoking policy, room service/diet, and visiting hours. Information on how to activate the Rapid Response Team has been discussed. Patient/Family are encouraged to report perceived risks to care and to ask questions if they do not understand what they are told or what they should do.
--- NOTE | 2020-11-16 19:41 | PM.IMHP ---
H&P: HPI History of Present Illness Date/Time: 11/16/20 19:41 Chief Complaint: Chest pain Narrative: Naina Douglas is a 69 year old female of valvular disease, hyperlipidemia and diabetes. She also has a history of GERD and peptic ulcer disease. The patient typically does not have any problems with her acid reflux. She stated that she did not eat anything out of the ordinary she had a thin pork chop for dinner and then as a snack she had Cheerios. She said she laid down to rest and about midnight she started to have some midsternal chest pain. It was constant dull 9:00 a.m. this morning. She stated she was also diaphoretic. She did was a burning discomfort. It was not reproducible. She did have any nausea vomiting or diarrhea. She took [place] and it did help some. She sees Dr. Khan as her carbonizer tester and has an appointment coming up November for her valvular disease. Her cardiac enzymes are negative x2. She currently is not having any chest discomfort. Rhythm borderline ST abnormality, anterior leads. Within EF of 60%. Mildly thickened aortic valve leaflets. Her carbonizer tester had been consulted and has seen the patient. If her troponins are negative patient will receive a stress echo in the morning. She can walk 1 mile without any problems. As per cardiology notes the following was read as: Reports ongoing intermittent palpitations at night that wakes her up since a year ago when she was evaluated by Dr. Gleason at [place] with a holter and echo, and was told she had a leaky valve. It happens about twice a week. She reports ongoing for the past year mild discomfort below her left rib cage at rest. Denies orthopnea, PND, edema, dizziness. The patient was given an aspirin in the emergency room. She is being admitted to observation date of service 11/16/2020. Review of Systems Review of Systems: All systems reviewed & are unremarkable except as noted in HPI and below Constitutional: Constitutional: Reports as per HPI and Reports no additional constitutional complaints Eyes: Eyes: Reports as per HPI and Reports no additional eye complaints ENT: Reports system reviewed and no additional complaints, except as documented and Reports Normal hearing present Cardiovascular: Cardiovascular: Reports no additional cardiovascular complaints Respiratory: Respiratory: Reports no additional respiratory complaints and Reports no additional respiratory complaints Gastrointestinal: Gastrointestinal: Reports as per HPI and Reports no additional gastrointestinal complaints Musculoskeletal: Musculoskeletal: Reports no additional musculoskeletal complaints Integumentary/Breasts: Skin/Breast: Reports system reviewed and no additional complaints, except as docu and Reports as per HPI Neurologic: Reports system reviewed and no additional complaints, except as documented, Reports as per HPI and Reports Normal hearing present Psychiatric: Psychiatric: Reports no additional psychiatric complaints and Reports as per HPI Endocrine: Endocrine: Reports no additional endocrine complaints Hematologic/Lymphatic: Hematologic/Lymphatic: Reports no additional hematologic/lymphatic complaints Allergic/Immunologic: Allergic/Immunologic: Reports no additional allergic/immunologic complaints [facility] Past Medical History Medical History (Updated 11/16/20 @ 19:51 by Darcy Browne NP) Arthritis Breast lump Cataracts, both eyes Diabetes Dizziness Fainting Forgetfulness Goiter Hernia High cholesterol Hypothyroidism Nervousness Thyroid-related proptosis Surgical History Surgical History H/O: hysterectomy (~1999) History of cataract surgery (~2003) History of cholecystectomy (~1989) Hx of appendectomy (~1979) Hx of tonsillectomy (~1974) Family History Family History Father , 65 Emphysema, unspecified Mother
[2020-11-16 20:23] LABS: Glucose Point of Care 116 (65-105)
[2020-11-16 20:44] LABS: Troponin I < 0.012 ng/mL (0.000-0.034)
[2020-11-16] MEDS: ROSUVASTATIN 10 MG TABLET PO (21:28)
[2020-11-17] VITALS (10 sets, daily range): BP systolic 115–134; BP diastolic 52–65; PULSE 70–95; RESP 16–20; TEMP 35.9–36.6; O2SAT 96–97; BMI 23.7
--- NOTE | 2020-11-17 | ECHO_ITS ---
Patient Info Name: Naina Douglas Age: 69 years : 1950 Gender: Female Ht: 62 in Wt: 140 lbs BSA: 1.68 m2 HR: 94 bpm BP: 115 / 52 mmHg Technical Quality: Good Exam Date: 11/17/2020 10:52 AM Exam Location: [facility] Pulmonary Exam Room: [facility] Patient Status: Inpatient Admit Date: 11/16/2020 Staff Ordering Physician: Kalyan Khan DO Care Assistant: Vy Nichols RDCS Attending Provider: Galileo Herrera MD Referring Physician: Bill DAVENPORT; Exam Type: CA echo doppler color flow Study Info Indications - AORTIC VALVE REGURGITATION Complete two-dimensional, color flow and Doppler transthoracic echocardiogram is performed. Summary 1. Complete two-dimensional, color flow and Doppler transthoracic echocardiogram is performed. 2. Left ventricular chamber dimension is normal. 3. Left ventricular systolic function is normal, estimated at 60-65%. 4. The left ventricular diastolic function is grade I diastolic dysfunction. 5. E/e' 8 is minimally elevated. 6. Global longitudinal strain is normal at -19.4%. 7. There is mild mitral valve regurgitation. 8. There is trace tricuspid valve regurgitation. 9. No pulmonary hypertension, estimated pulmonary arterial systolic pressure is 25 mmHg. Left Ventricle E/e' 8 is minimally elevated. Global longitudinal strain is normal at -19.4%. Left ventricular chamber dimension is normal. Left ventricular systolic function is normal, estimated at 60-65%. The left ventricular diastolic function is grade I diastolic dysfunction. Right Ventricle Right ventricular chamber dimension is normal. Right ventricular systolic function is normal. Left Atria Left atrial chamber dimension is normal. Right Atria Right atrial chamber dimension is normal. Aortic Valve The aortic valve is trileaflet. There is no aortic valve stenosis. There is mild aortic valve regurgitation. Pulmonic Valve There is no pulmonic regurgitation. Mitral Valve There is no mitral valve stenosis. There is mild mitral valve regurgitation. Tricuspid Valve There is trace tricuspid valve regurgitation. No pulmonary hypertension, estimated pulmonary arterial systolic pressure is 25 mmHg. Pericardium/Pleural There is no pericardial effusion. Inferior Vena Cava Normal inferior vena cava with >50% collapse upon inspiration consistent with normal right atrial pressure, 5 mmHg. Aorta The aortic root size at the sinus of Valsalva is normal. Left Ventricular Outflow Tract Name Value Normal LVOT 2D LVOT Diameter 2.0 cm LVOT Doppler LVOT Peak Gradient 4 mmHg LVOT Mean Gradient 2 mmHg LVOT VTI 21 cm LVOT VTI/AV VTI Ratio 0.9 LVOT Stroke Volume 66 ml LVOT CO 13.4 l/min LVOT CI 8.0 l/min/m2 Pulmonic Valve Name Value Normal
[2020-11-17 05:13] LABS: Basophils Percent Auto 0.3 % (0.2-1.2); Eosinophils Absolute Auto 0.1 K/mm3 (0-0.3); Eosinophils Percent Auto 1.9 % (0-4.4); Hematocrit 34.3 % (37.0-47.0); Hemoglobin 11.1 g/dL (12.0-15.0); Immature Granulocyte Absolute 0.01 K/mm3 (0.00-0.031); Immature Granulocyte Percent A 0.2 % (0-0.5); Lymphocytes Absolute Auto 3.02 K/mm3 (0.9-3.2); Lymphocytes Percent Auto 52.3 % (18.3-44.2); Mean Corpuscular HGB Conc 32.4 g/dl (32-36); Mean Corpuscular Hemoglobin 29.4 pg (26-34); Mean Corpuscular Volume 90.7 fl (80-100); Mean Platelet Volume 10.4 fl (7.4-10.4); Monocytes Absolute Auto 0.5 K/mm3 (0.1-0.6); Monocytes Percent Auto 8.3 % (2.6-8.5); Neutrophils Absolute Auto 2.1 K/mm3 (1.3-6.7); Platelet Count Result 188 k/mm3 (150-375); Red Blood Count 3.78 M/mm3 (4.2-5.4); Red Cell Distribution Width 12.8 % (11.5-14.5); White Blood Count 5.8 K/mm3 (4.5-10.0)
[2020-11-17 05:29] LABS: CRP < 0.5 mg/dL (<1.0); Lactate Dehydrogenase 255 U/L (313-618); Magnesium 1.7 mg/dL (1.6-2.3)
[2020-11-17] MEDS: LEVOTHYROXINE SODIUM 50 MCG TABLET PO (06:27)
[2020-11-17 07:34] LABS: Glucose Point of Care 97 (65-105)
--- NOTE | 2020-11-17 08:00 | EST_ITS ---
Patient Info Name: Naina Douglas Age: 69 years : 1950 Gender: Female Ht: 62 in Wt: 124 lbs BSA: 1.57 m2 Exam Date: 11/17/2020 11:36 AM Exam Location: [facility] Pulmonary Patient Status: Outpatient Admit Date: 11/16/2020 Staff Ordering Physician: Kalyan Khan DO Health Administration Teacher: Flakito Jewell RDCS, RT Attending Provider: Referring Physician: Bill DAVENPORT; Exercise Technologist: Flakito Jewell RDCS, RT Exercise Physician: Kalyan Khan DO Exam Type: CA stress echo Study Info Indications R07.89 - Other chest pain Treadmill exercise stress echocardiogram is performed. Summary 1. 1. Negative Xavier exercise stress test for ischemic ST changes by ECG criteria. 2. 2. Good functional capacity, achieving 7 METs of workload. 3. 3. Baseline hypertension. 4. 4. Appropriate HR response to exercise. 5. 5. Appropriate HR recovery at 1 minute post exercise. 6. 6. Negative stress echocardiogram for ischemia by wall motion analysis. 7. 7. Patient informed of the above results. Stress Echo Findings Left Ventricle Appropriate increase in LV endocardial thickening with systole. Appropriate augmentation of contractility with systole. No wall motion abnormality. Left Ventricle Normal LV systolic function, no wall motion abnormality. Protocol: Xavier Stress ECG Details Stage: REST Duration (min): 0 min : 49 sec Speed (mph): 0.0 Grade (%): 0 HR (bpm): 87 SBP (mmHg): 154 DBP (mmHg): 70 METS: --- Stage: REST Duration (min): 7 min : 17 sec Speed (mph): 0.0 Grade (%): 0 HR (bpm): 107 SBP (mmHg): 154 DBP (mmHg): 70 METS: --- Stage: STAGE 1 Duration (min): 1 min : 0 sec Speed (mph): 1.7 Grade (%): 10 HR (bpm): 122 SBP (mmHg): 154 DBP (mmHg): 70 METS: --- Stage: STAGE 1 Duration (min): 2 min : 0 sec Speed (mph): 1.7 Grade (%): 10 HR (bpm): 132 SBP (mmHg): 154 DBP (mmHg): 70 METS: --- Stage: STAGE 1 Duration (min): 3 min : 0 sec Speed (mph): 1.7 Grade (%): 10 HR (bpm): 140 SBP (mmHg): 191 DBP (mmHg): 81 METS: --- Stage: STAGE 2 Duration (min): 1 min : 0 sec Speed (mph): 0.0 Grade (%): 0 HR (bpm): 134 SBP (mmHg): 191 DBP (mmHg): 81 METS: --- Stage: STAGE 2 Duration (min): 1 min : 0 sec Speed (mph): 0.0 Grade (%): 0 HR (bpm): 134 SBP (mmHg): 191 DBP (mmHg): 81 METS: --- Stage: RECOVERY Duration (min): 0 min : 59 sec Speed (mph): 0.0 Grade (%): 0 HR (bpm): 129 SBP (mmHg): 202 DBP (mmHg): 94 METS: --- Stage: RECOVERY Duration (min): 1 min : 59 sec Speed (mph): 0.0 Grade (%): 0 HR (bpm): 111 SBP (mmHg): 202 DBP (mmHg): 94 METS: --- Stage: RECOVERY Duration (min): 2 min : 59 sec Speed (mph): 0.0 Grade (%): 0 HR (bpm): 98 SBP (mmHg): 170 DBP (mmHg): 87 METS: --- Stage: RECOVERY Duration (min): 3 min : 19 sec Speed (mph): 0.
[2020-11-17] MEDS: PANTOPRAZOLE 40 MG TABLET PO (08:25)
[2020-11-17] MEDS: ASPIRIN 81 MG CHEWABLE TABLET PO (08:25)
[2020-11-17] MEDS: lisinopriL 5 MG TABLET PO (10:16)
[2020-11-17] MEDS: LOPERAMIDE HCL 2 MG CAPSULE PO (10:16)
[2020-11-17 12:33] LABS: Glucose Point of Care 96 (65-105)
--- NOTE | 2020-11-17 13:15 | PM.PNCARD ---
Progress Note: A&P Assessment and Plan (1) Chest pain: Code(s): R07.9 - Chest pain, unspecified Status: Acute Assessment and Plan: Atypical. Could be heartburn related. 1st EKG and 3 sets of troponin are unremarkable. Stress echo this AM was normal. May d/c home from cardiology standpoint and F/U with me in 2 weeks. (2) Aortic regurgitation: Code(s): I35.1 - Nonrheumatic aortic (valve) insufficiency Status: Acute Assessment and Plan: Echo this morning shows only mild aortic regurgitations. Stable. (3) HTN (hypertension): Code(s): I10 - Essential (primary) hypertension Status: Acute Assessment and Plan: Stable. (4) HLD (hyperlipidemia): Code(s): E78.5 - Hyperlipidemia, unspecified Status: Acute Subjective Date/time seen: 11/17/20 13:15 Patient had chest pain last night but this time it was at right side of chest. Denies sob. Exam Const: General: cooperative, healthy appearing and comfortable Resp: Auscultation: clear to auscultation bilaterally, no crackles, no rales, no rhonchi and no wheezes Cardio: Jugular venous distension: no JVD Rate: regular rate Rhythm: regular rhythm Heart sounds: no murmurs Peripheral pulses: dorsalis pedis present GI: GI Palp: No abdominal tenderness and Yes Soft to palpation Neuro: General: oriented to person, oriented to place and oriented to time Extrem: Right lower extremity: no edema Left lower extremity: no edema Objective Data Vital Signs Vital Signs: Vital Signs - 24 hr 11/16/20 13:22 11/16/20 13:56 11/16/20 14:00 Temperature Pulse Rate 99 78 85 Respiratory Rate 16 10 L 19 Blood Pressure 142/60 H Pulse Oximetry 99 95 98 11/16/20 14:05 11/16/20 14:06 11/16/20 14:07 Temperature Pulse Rate 79 100 84 Respiratory Rate 17 19 17 Blood Pressure 143/72 H 138/66 140/122 H Pulse Oximetry 96 98 97 11/16/20 14:08 11/16/20 14:15 11/16/20 14:39 Temperature Pulse Rate 88 80 94 Respiratory Rate 16 16 24 H Blood Pressure 143/64 H Pulse Oximetry 99 96 100 11/16/20 14:45 11/16/20 15:10 11/16/20 15:15 Temperature Pulse Rate 89 84 83 Respiratory Rate 17 20 14 Blood Pressure Pulse Oximetry 97 97 98 11/16/20 15:41 11/16/20 15:58 11/16/20 16:00 Temperature Pulse Rate 89 93 86 Respiratory Rate 15 17 20 Blood Pressure 143/69 H Pulse Oximetry 98 97 96 11/16/20 17:45 11/16/20 18:20 11/16/20 18:48 Temperature 97.1 F L Pulse Rate 84 85 85 Respiratory Rate 16 Blood Pressure 147/63 H Pulse Oximetry 95 11/16/20 20:00 11/16/20 22:00 11/16/20 23:31 Temperature 97.4 F L 97.5 F L Pulse Rate 79 81 72 Respiratory Rate 20 18 Blood Pressure 130/54 L 135/56 L Pulse Oximetry 96 95 11/17/20 00:00 11/17/20 02:00 11/17/20 04:00 Temperature 97.8 F Pulse Rate 88 74 72 Respiratory Rate 20 Blood Pressure 134/53 L Pulse Oximetry 97 11/17/20 06:00 11/17/20 08:00 11/17/20 08:35 Temperature 97.6 F Pulse Rate 74 92 84 Respiratory Rate 16 Blood Pressure 115/52 L Pulse Oximetry 96 11/17/20 10:00 11/17/20 12:00 11/17/20 12:44 Temperature 96.6 F L Pulse Rate 85 94 95 Respiratory Rate 18 Blood Pressure 132/65 Pulse Oximetry 97 Intake/Output Intake/Output: Intake & Output 11/14/20 11/15/20 11/16/20 11/17/20 23:59 23:59 23:59 23:59 Intake Total 240 600 Balance 240 600 Meds/Results Medications: Active Medications Generic Name Dose Route Start Last Admin Trade Name Freq PRN Reason Stop Dose Admin Aspirin 81 mg 11/17/20 09:00 11/17/20 08:25 Aspirin 81 Mg Chewable Tablet PO 81 mg DAILY MARYA Administration Dextrose 12.5 gm 11/16/20 17:41 Dextrose 50% 25 Gm/50 Ml Syringe IV PUSH PRN PRN Hypoglycemia Protocol Estradiol 0.5 mg 11/17/20 09:00 11/17/20 11:25 Estradiol 0.5 Mg Tablet PO Not Given DAILY MARYA Glucagon 1 mg 11/16/20 17:41 Glucagon For Inj 1 Mg
--- NOTE | 2020-11-17 13:53 | PM.DS ---
DS: Admitting Diagnosis Admitting Diagnosis Admitting Diagnosis: Chest pain DS: Discharge Diagnosis Discharge Diagnosis (1) Chest pain: Code(s): R07.9 - Chest pain, unspecified Status: Acute (2) Aortic regurgitation: Code(s): I35.1 - Nonrheumatic aortic (valve) insufficiency Status: Acute (3) Hypothyroidism: Code(s): E03.9 - Hypothyroidism, unspecified Status: Chronic (4) HLD (hyperlipidemia): Code(s): E78.5 - Hyperlipidemia, unspecified Status: Acute (5) HTN (hypertension): Code(s): I10 - Essential (primary) hypertension Status: Acute (6) Diabetes mellitus: Qualifiers: Diabetes mellitus complication status: without complication Diabetes mellitus retirement insulin use: without middle or intermediate school principal use Diabetes mellitus type: type 2 Qualified Code(s): E11.9 - Type 2 diabetes mellitus without complications Code(s): E11.9 - Type 2 diabetes mellitus without complications Status: Acute DS: Summary Hospital Course Reason for hospitalization: 69yo female here for chest pain. Please see H&P for details. Hospital Course: Patient presents with complaints of chest pain. EKG did not show any significant ischemic changes. CBC and CMP were normal. Troponin was negative x3. Chest x-ray showed no acute cardiopulmonary disease. Vital signs stable on admission. Echocardiogram showed EF of 60-65% and grade 1 diastolic dysfunction with mild aortic regurgitation. Patient was seen by Cardiology. Stress echocardiogram ordered and was negative for ischemic ST changes by EKG and negative stress echo for ischemia by wall motion analysis. We continued PPI therapy here. Patient was given instructions on prevention of GERD symptoms. She was able to be discharged home on 11/17/2020. Status at Discharge Cognitive/behavioral status at discharge: Patietn stable for discharge Time Spent with Patient Time attestation: Total time spent providing and/or coordinating discharge services:35 minutes Time spent: Greater than 30 minutes Exam Narrative: Exam Narrative: AF 96.6 132/65 95 18 97% ra Gen - NARD Chest - CTA bilaterally, nml RR CV - RRR S1/S2; Tele showing no significant dysrhythmias Abd - Soft, NT/ND, Positive BS Ext - No pedal edema Psych - Nml mood and affect Skin - Warm and dry DS: Data Data Completed and Pending Labs on day of discharge: Labs from last 24 hours 11/17/20 11/17/20 11/17/20 12:15 07:26 04:30 WBC RBC Hgb Hct MCV MCH MCHC RDW Plt Count MPV Immature Gran % (Auto) Neut % (Auto) Lymph % (Auto) [place] % (Auto) Eos % (Auto) Baso % (Auto) Lymph # (Auto) [place] # (Auto) Eos # (Auto) Baso # (Auto) Abs Immat Gran (auto) Absolute Neuts (auto) Absolute Nucleated RBC Nucleated RBC % PT INR APTT POC Capillary Glucose 96 97 Magnesium Lactate Dehydrogenase Troponin I C-Reactive Protein TSH (Reflex) 2.430 11/17/20 11/17/20 11/16/20 04:30 04:30 20:19 WBC 5.8 RBC 3.78 L Hgb 11.1 L Hct 34.3 L MCV 90.7 MCH 29.4 MCHC 32.4 RDW 12.8 Plt Count 188 MPV 10.4 Immature Gran % (Auto) 0.2 Neut % (Auto) 37.0 L Lymph % (Auto) 52.[address] [place] % (Auto) 8.3 Eos % (Auto) 1.9 Baso % (Auto) 0.3 Lymph # (Auto) 3.02 [place] # (Auto) 0.5 Eos # (Auto) 0.1 Baso # (Auto) 0.0 Abs Immat Gran (auto) 0.01 Absolute Neuts (auto) 2.1 Absolute Nucleated RBC 0.0 Nucleated RBC % 0.0 PT INR APTT POC Capillary Glucose 116 H Magnesium 1.7 Lactate Dehydrogenase 255 L Troponin I C-Reactive Protein < 0.5 TSH (Reflex) 11/16/20 11/16/20 11/16/20 19:34 17:57 16:24 WBC RBC Hgb Hct MCV MCH MCHC RDW Plt Count MPV Immature Gran % (Auto) Neut % (Auto) Lymph % (Auto) [place] % (Auto) Eos % (Auto) Baso % (Auto
== END 2020-11-17 15:10 | disposition home or self-care (01) ==
LOC: ANHED 14:48 → ANHIMU 16:40
PROVIDERS: Nurse Practitioner; Admitting Provider Internal Medicine; Emergency Provider General Practice; PCP Emergency Medicine; Visit Provider Internal Medicine
DX: R07.9 Chest pain, unspecified (principal); I35.1 Nonrheumatic aortic (valve) insufficiency; E11.9 Type 2 diabetes mellitus without complications; E03.9 Hypothyroidism, unspecified; E78.5 Hyperlipidemia, unspecified; K21.9 Gastro-esophageal reflux disease without esophagitis; I10 Essential (primary) hypertension; Z87.891 Personal history of nicotine dependence; Z86.16 Personal history of COVID-19
CPT/HCPCS: 36415; 71046; 80048; 80076; 82948; 83615; 83690; 83735; 84443; 84484; 85025; 85610; 85730; 86140; 93005; 93306; 93351; 99285; A9270; G0378

== ENCOUNTER 2021-06-01 07:10 | Outpatient (CLI) | payer MEDICARE, SELFPAY ==
--- NOTE | ~2021-06-01 | CT_ITS ---
EXAMINATION: CT abdomen pelvis w con INDICATION: Lower abdominal pain TECHNIQUE: Computed tomographic images of the abdomen and pelvis were obtained after the administrati on of 100 cc of Omnipaque 350 intravenous contrast. The dose-length product (DLP) was 285.70 mGy-cm. Automated exposure control and iterative reconstruction technique were employed. COMPARISON: 05/14/2020 FINDINGS: Minimal dependent atelectasis is present in the lung bases. There is a moderate-sized slidi ng hiatal hernia. The heart size is normal. The gallbladder is surgically absent. There is mild enlar gement of the common bile duct and central intrahepatic ducts which is likely due to post cholecystec avril state. There is a 1.9 cm cyst in the right hepatic lobe. The spleen, pancreas, and adrenal gland s are normal. The right kidney is unremarkable. There is a rotated axis of the left kidney. There is calcified atherosclerosis of the aorta and many of the other arteries. No pathologically enlarged abd ominal or pelvic lymph nodes are identified. Colonic diverticulosis is present without evidence of di verticulitis. There is moderate lower lumbar spondylosis. IMPRESSION: 1. No CT correlate for the patient's symptoms. Reviewed, dictated and finalized at location A.
[2021-06-01 07:42] LABS: Estimated Glomerular Filt Rate > 60
== END 2021-06-01 07:11 | disposition home or self-care (01) ==
PROVIDERS: PCP Emergency Medicine; Visit Provider Nurse Practitioner Family
DX: R10.9 Unspecified abdominal pain (principal)
CPT/HCPCS: 74177; Q9967

== ENCOUNTER → 2021-07-12 09:29 | Outpatient (CLI) | payer MEDICARE, SELFPAY ==
--- NOTE | ~2021-07-12 | MMUS_ITS ---
EXAMINATION: MM diagnostic tiffany BI w kristel, US breast BI limited HISTORY: Follow-up bilateral breast masses TECHNIQUE: Additional 3-D tomosynthesis images of the breasts were performed and synthetic 2-D images were generated. CAD analysis was submitted and interpreted. High resolution limited bilateral breast ultrasound was performed. COMPARISON: Comparison to multiple prior studies sequentially, with oldest reviewed study dated 04/19. BREAST PARENCHYMAL COMPOSITION: The breasts are heterogenously dense, which may obscure small masses. FINDINGS: MAMMOGRAPHIC FINDINGS: The breasts are stable. No new masses, calcifications or architectural distortion in either breast to suggest malignancy. There is tissue marker in the right breast from previous benign biopsy. There ar e benign bilateral breast calcifications. ULTRASOUND: Limited right breast ultrasound: At 12:00, 4 cm from the nipple, there is a stable 4 mm oval hypoecho ic mass without internal vascularity or posterior features. At 1:00, 2 cm from the nipple, there is a 5 mm cyst. At 1:00, 2 cm from the nipple there is another 4 mm cyst. At 9:00, 6 cm from the nipple t here is a 4 mm cyst. At 11:00, 4 cm from the nipple, there is a 3 mm cyst. Limited left breast ultrasound: At 1:00, 4 cm from the nipple there is a 4 mm cyst. At 2:00, 4 cm fro m the nipple, there is an oval hypoechoic mass measuring 5 mm maximum dimension with parallel orienta tion, internal echoes, slightly larger than on prior examination. At 3:00, 4 cm from the nipple there is a 4 mm cyst. At 6:00, 1 cm from the nipple, there is an enlarging irregular shaped hypoechoic mas s measuring 7 x 5 x 5 mm compared with 5 x 5 x 4 mm on prior examination. No internal vascularity or posterior features. At 10:00 near the areola is a 3 mm cyst. IMPRESSION: 1. Slight enlargement of hypoechoic masses of the left breast at 2:00, 4 cm from the nipple and 6:00, 1 cm from the nipple. Right breast masses are stable, likely benign. 2. Ultrasound-guided left breast biopsies recommended. BI-RADS category 4, suspicious findings. Reviewed, dictated and finalized at location A. IMPRESSION: 1. Slight enlargement of hypoechoic masses of the left breast at 2:00, 4 cm fro m the nipple and 6:00, 1 cm from the nipple. Right breast masses are stable, jing miller benign. 2. Ultrasound-guided left breast biopsies recommended. BI-RADS category 4, suspicious findings.
== END ==
PROVIDERS: PCP Emergency Medicine; Visit Provider Emergency Medicine
DX: R92.1 Mammographic calcification found on diagnostic imaging of breast (principal); R92.8 Other abnormal and inconclusive findings on diagnostic imaging of breast
CPT/HCPCS: 76642; 77062; 77066; G0279

== ENCOUNTER 2021-07-27 10:00 | Outpatient (CLI) | payer MEDICARE, SELFPAY ==
--- NOTE | ~2021-07-27 | MMUS_ITS ---
EXAMINATION: US GUIDED NEEDLE BIOPSY DATE: 07/27/2021 11:45 CDT INDICATION: 2:00 and 6:00 right sonographic masses TECHNIQUE AND FINDINGS: The risks and potential benefits of the procedure were discussed with the patient, and written inform ed consent was obtained. Timeout procedure was performed. After sterile preparation of the right lupe st, 1% lidocaine was utilized for local anesthesia at each of the biopsy sites. A 14G spring-loaded biopsy gun needle was advanced to the edge of each of the regions of interest fro m a medial approach utilizing sonographic guidance. A total of three tissue core samples were obtain ed through each of the lesions. An Inrad tissue marker clip was then placed at each biopsy site. Hem ostasis was achieved. A sterile bandage was applied. The patient tolerated procedure well and there was no evidence of immediate complication. The patien t was given verbal instructions prior to departing from the department. A two view mammogram was perf ormed to document tissue marker clip placement. The tissue samples were submitted to surgical patholo gy for histologic analysis. IMPRESSION: 1. Successful ultrasound guided biopsy of 2:00 and 6:00 right breast masses with biopsy marker place ment. Please refer to pathology report for histologic analysis. Reviewed, dictated and finalized at Location A. Reviewed, dictated and finalized at location A. IMPRESSION: 1. Successful ultrasound guided biopsy of 2:00 and 6:00 right breast masses wi th biopsy marker placement. Please refer to pathology report for histologic jocelyn lysis. IMPRESSION: 1. Successful ultrasound guided biopsy of 2:00 and 6:00 right breast masses wi th biopsy marker placement. Please refer to pathology report for histologic jocelyn lysis.
== END 2021-07-27 10:01 | disposition home or self-care (01) ==
LOC: ANHIMG 10:02
PROVIDERS: PCP Emergency Medicine; Visit Provider Emergency Medicine
DX: R92.8 Other abnormal and inconclusive findings on diagnostic imaging of breast (principal)
CPT/HCPCS: 19083; 19084; 88305; 88342; A4648

== ENCOUNTER 2021-08-11 09:25 | Outpatient (CLI) | payer MEDICARE, SELFPAY ==
[2021-08-11 10:10] LABS: Anion Gap 6 mmol/L (8-16); Blood Urea Nitrogen 9 mg/dL (7-17); Calcium 9.3 mg/dL (8.4-10.2); Carbon Dioxide 31 mmol/L (22-30); Chloride 103 mmol/L (98-107); Estimated Glomerular Filt Rate > 60; Glucose 104 mg/dL (65-110); Potassium 4.4 mmol/L (3.4-5.0); Sodium 140 mmol/L (137-145)
== END 2021-08-11 09:26 | disposition home or self-care (01) ==
LOC: ANHSURGERY 09:28
PROVIDERS: Anesthesiology; PCP Emergency Medicine; Visit Provider Surgery
DX: E11.9 Type 2 diabetes mellitus without complications (principal); Z01.818 Encounter for other preprocedural examination
CPT/HCPCS: 36415; 80048

== ENCOUNTER 2021-08-15 01:45 | Day surgery (SDC) | payer MEDICARE, SELFPAY ==
[2021-08-10 09:34] VITALS: BMI 23.4
--- NOTE | 2021-08-10 09:43 | PC.NURSE ---
Report to the Outpatient Waiting Room, entrance under the green pavilion located off [facility], at time _0630__ on date _08/15/21__. OR Time: _09__, NEEDLE LOCALIZATION @ 0730 - You and your visitor will be asked a series of questions to screen for COVID 19 for your protection. - A mask is required within the hospital. - Only one visitor is allowed at this time. Patient visitors will be guided where to wait when not with patient. Preoperative COVID Testing Requirements: No COVID Test needed if: (proof is required; if not received patient will have Rapid Test prior to entry) - Patient has received COVID Vaccine at least 14 days prior to procedure date or - Patient has positive COVID test result within last 90 days of surgery date. COVID Test needed if above criteria is not met If not COVID vaccinated a COVID test must be conducted within 72 hours of surgery and patient is asked to isolate self from time of testing until procedure. You will go to the [facility] for your COVID testing. The [facility] site is located at the corner of [address] [facility]. You will only be called if COVID results are positive and your surgeon may reschedule your elective surgery date. Patients may have clear liquids (water, carbonated beverages, clear teas, apple juice) until 3 hours prior to surgery (0630) with a maximum of 20 ounces. - No food from midnight until time of surgery - Infants may have breast milk until 4 hours before surgery, formula 6 hours prior to surgery. - Children will be allowed to drink immediately following surgery. If applicable, please bring a bottle or sippy cup to assist with drinking. Juice, water, soda, and popsicles are readily available. For infants on formula, please bring formula the day of surgery. Pacifiers are allowed. Take the following medications with a SIP of water the morning of surgery: __LEVOTHYROXINE Medications to discontinue per physician __CALL DR. RODRÍGUEZ'S OFFICE REGARDING ASPIRIN Date to take last dose Please no make-up, nail romansh, hairspray, perfume, deodorant, or body powder the day of surgery. No jewelry (including any body piercings) or valuables the day of surgery, leave them at home. Please take a shower or bath the night before, or the morning of, surgery with an antibacterial soap. Wear comfortable, loose fitting clothing. Children are encouraged to wear pajamas. - Jewelry must be removed prior to entering the operating room. Rings and piercings that are not removed may be cut off. - The hospital will not accept responsibility for valuables. - Please leave all valuables, including medications, at home the day of surgery. - If you are going home after surgery, a licensed [facility] driver must drive you home. - NO public transportation without another adult. - We recommend that an adult stay with you for 24 hours following discharge. - We also recommend that you do not drive, make important decision, drink alcoholic beverages, or take any drugs that were not prescribed by your health care provider for at least 24 hours after your discharge time. For Pediatric surgeries, we recommend two adults accompany the child home (only one inside the building at this time). Follow any additional instructions given to you from your surgeon. Telephone instructions given to ___PT____and asked if any additional questions and then verbalized understanding. Patient advised to call surgeon office or pre surgery nurse liaison [phone] if any additional questions.
[2021-08-15] VITALS (11 sets, daily range): BP systolic 128–161; BP diastolic 52–100; PULSE 74–92; RESP 12–16; TEMP 36.1–36.7; O2SAT 92–100; BMI 23.4
--- NOTE | ~2021-08-15 | MM_ITS ---
EXAMINATION: MM needle loc LT, MM surgical specimen LT, MM surgical specimen LT, MM needle loc LT ea add DATE: 08/15/2021 INDICATION: Patient presents for wire localization of two biopsy markers in the left breast. TECHNIQUE: The procedure for a mammography-guided needle localization was discussed with the patient. Risks and benefits were detailed including risks of bleeding and infection. The patient verbalized u nderstanding and agreed to proceed. A time out was performed to verify the patient's name, date of , and site of procedure. The purvi ent was placed in lateral medial compression, and the skin overlying the outer left breast was prepa red in usual fashion. The skin and subcutaneous soft tissues were infiltrated with 1% lidocaine for l ocal anesthesia. Utilizing mammography guidance, needles were advanced into the outer left breast tar geting the biopsy markers. Upon switching to the craniocaudal view, the longer needle intended for ta rgeting of the heart marker initially projected posterior to the intended location. Its position was adjusted and wire position appeared adequate on the craniocaudal images. On the final mediolateral vi ew, the ribbon marker was well localized while the hook for the heart marker appeared approximately 1 5 mm cranial to the intended location. The patient tolerated procedure without immediate complication . A specimen radiograph was performed. Specimen radiograph demonstrates the ribbon marker and associate d wire together. The specimen radiograph for the heart marker demonstrates the wire but no marker. Th is was discussed with Dr. Henry and two additional wider excisions were performed, neither specimen d emonstrating the heart marker. This was communicated to Dr. Henry and further excision was not felt t o be beneficial given the pathology results obtained at core biopsy of this area. FINDINGS: Two view confirmatory films of the left breast demonstrate wire position and left breast ma rkers as described above. IMPRESSION: 1. Mammography-guided left breast needle localization. Reviewed, dictated and finalized at location A. TY INSPECTOR IMPRESSION: 1. Mammography-guided left breast needle localization. IMPRESSION: 1. Mammography-guided left breast needle localization. IMPRESSION: 1. Mammography-guided left breast needle localization.
[2021-08-15 07:18] LABS: Glucose Point of Care 99 mg/dl (65-105)
[2021-08-15] MEDS: LACTATED RINGERS 1,000 ML 30 ML IV CONT ×2 (07:21→11:04)
--- NOTE | 2021-08-15 07:45 | WPDANESEPPF ---
Anes - Initial Pre Proc Eval Procedure: Operation Date: 08/15/21 09:30 Proposed Procedures p Excisional Biopsy of Left Breast Mass Times Two with Ultrasound and/or Mammogram Guided Needle Localization, - Saira Henry MD Date/Time: 08/15/21 07:45 Surgeon: Saira Henry MD Pre Op Diagnosis: left breast mass x2 Patient Data Age: 70 Gender: F Height: 1.57 m Weight: 58.2 kg Last Vital Signs Temp 36.7 C 08/15/21 06:54 Pulse 83 08/15/21 06:54 Resp 16 08/15/21 06:54 BP 135/59 L 08/15/21 06:54 Pulse Ox 100 08/15/21 06:54 Allergies Allergy/AdvReac Type Severity Reaction Status Date / Time propoxyphene Allergy Severe TONGUE Verified 08/15/21 06:15 SWELLING AND STOPPED BREATHING Home Medications Medication Instructions Recorded Confirmed Type aspirin 81 mg chewable tablet 81 mg PO HS 11/19/19 08/15/21 History blood-glucose meter #1 each 04/30/20 08/09/21 Rx lisinopril 5 mg PO QAM 11/16/20 08/15/21 History rosuvastatin 10 mg tablet 10 mg PO HS #90 tablet 11/23/20 08/15/21 Rx esomeprazole magnesium 40 mg 40 mg PO BID #180 cap 01/07/21 08/15/21 Rx capsule,delayed release blood sugar diagnostic #100 each 04/22/21 08/09/21 Rx metformin 850 mg tablet 850 mg PO BID #28 tablet 05/03/21 08/15/21 Rx lancets 33 gauge #100 each 05/27/21 08/09/21 Rx estradiol 0.5 mg QAM 08/10/21 08/15/21 History levothyroxine 50 mcg PO QAM 08/10/21 08/15/21 History Laboratory Tests 08/15/21 07:16 POC Capillary Glucose 99 mg/dl mg/dl (65-105) Patient hx anesthesia problems: none Family hx anesthesia problems: none Results Review: All pre-operative results and documents have been reviewed as part of the pre-operative evaluation. [facility] Past Medical History Medical History Arthritis Breast lump Cataracts, both eyes Diabetes Dizziness Fainting Forgetfulness Goiter Hernia High cholesterol Hypothyroidism Nervousness Thyroid-related proptosis Surgical History Surgical History H/O: hysterectomy (~1999) History of cataract surgery (~2003) History of cholecystectomy (~1989) Hx of appendectomy (~1979) Hx of tonsillectomy (~1974) Family History Family History Father , 65 Emphysema, unspecified Mother , 43 Heart attack Social History Social History Social History: The patient lives at home with her . He is a durable power claim attorney for healthcare. She has 3 children. 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 No alcohol marijuana or illicit drugs. She desires to be a full code. Smoking packs per day: 1 Smoking cigarettes per day: 20.0 Years smoked: 10 Smoking pack-years: 10.00 Smoking status: Former smoker Tobacco type: cigarettes Second hand tobacco smoke exposure: No Additional smoking assessment comments: STATES QUIT 1974 Alcohol intake: never Substance use: never Substance use type: does not use Living arrangements: with family Gender identity (if verbalized by the patient): Female Spiritual care concerns: No Anes - Eval Final PreProcedure Day of Procedure 08/15/21 07:45 Patient weight: normal Heart: regular rate and rhythm Lungs: clear to auscultation Airway: Mallampati scale class II Neurological: alert and oriented Last oral intake: >/= 8 hours ASA classification: II Emergent: no Anesthetic plan: proceed Anesthesia type and monitoring: general LMA and standard monitoring Results Review: All pre-operative results and documents have been reviewed as part of the pre-operative evaluation. Informed Consent: The patient's anesthetic plan and its attendant risks and benefits were discussed with the patient/family/POA. Questions were solicited and answ
--- NOTE | 2021-08-15 08:44 | SUR.PREOP ---
0745; PT TO NEEDLE LOC PER W/C. SPOUSE REMAINS IN PREOP ROOM
--- NOTE | 2021-08-15 09:21 | WPDHPUPDATE1 ---
History and Physical Update Update Date/Time: 08/15/21 09:21 History and Physical has been reviewed, including an updated exam of the patient. There are NO changes in the patient's condition. Risks, benefits, and alternatives have been discussed and questions answered. Patient agrees to proceed with procedure.
[2021-08-15] MEDS: ceFAZolin 2 GM/D5W 50 ML 2 GM/50 ML BAG IVPB (09:35)
--- NOTE | 2021-08-15 10:17 | SUR.OPER ---
[facility] NOTIFIED OF INCISION AT 0952. INFERIOR LEFT BREAST MASS WITH SHORT SUTURE SUPERIOR AND LONG SUTURE LATERAL SUPERIOR LEFT BREAST MASS WITH SHORT SUTURE SUPERIOR AND LONG SUTURE LATERAL SENT WITH OBEY BROWN AT 1017 TO [facility]
--- NOTE | 2021-08-15 10:39 | SUR.OPER ---
Re-excision Left Breast Mass, Short Suture Superior and Long Suture Lateral sent & received by [facility]. Per RAD no marker noted in Re-Excision Specimen. Dr. Henry notified of report. Dr. Henry speaking with RAD.
--- NOTE | 2021-08-15 10:48 | SUR.OPER ---
Re-Excision Left Breast Mass Further Inferior Medial sent to [facility] with STEPHANIE Roper.
--- NOTE | 2021-08-15 11:03 | W.PM.PROC2 ---
Procedure Note - Detailed Date of Procedure 08/15/21 Pre-op Diagnosis left breast mass x2 Post-op Diagnosis same Procedure Performed Excisional biopsy left breast x2 with preop needle localization Surgeon Saira Henry MD Anesthesia general and local Indications 70-year-old female presenting to the office with a left breast mass x2. Patient had previous ultrasound-guided biopsy showing possible sclerosing adenosis as well as nipple adenoma. Given this excisional biopsy was recommended Findings superior area with sclerosing adenosis excised, inferior area of nipple adenoma unable to confirm excision given difficulty with wire Description of Procedure The patient was taken the operating room placed in the supine position. After adequate induction of general anesthesia, the patient was prepped and draped in the normal sterile fashion. Of note preop needle localization x2 was previously done by Interventional Radiology. A time-out was then done verify the patient's, as well as the procedure being performed. Began by localizing the areas around the wires. Once adequate localization was done, I made an incision inferior to both wires. I began by bringing the inferior wire into the operative field. I then carefully freed the breast tissue from the overlying dermis. I then carefully excised around the wire. There was some difficulty as the wire was noted to be quite long and medially was around the area of the nipple-areolar complex. I was able to get a good biopsy around the area of the wire. I then marked the specimen with a short suture superiorly and a long suture laterally. I then brought the superior wire into the field. I again carefully free the breast tissue from the overlying dermis. I then excised the tissue around this wire. Both the specimens were then sent to radiology for further. It was noted at this point that the inferior specimen clip was not in the specimen. I then reexcised this area and unfortunately again the clip was not noted. I then spoke to the radiologist that informed me he had difficulty placing the wire. I again did a further excision of the area, again the clip was not located within the specimen. After some discussion, including with Radiology, the decision was made to abort further excision. I copiously irrigated out the cavity. Further local anesthesia was placed. I then closed the subcutaneous tissue with 3-0 Vicryl suture. The skin was closed with 4-0 Monocryl subcuticular suture. Dermabond was then placed on the wound. The patient tolerated the procedure well and was extubated in the operating room. She will be sent to the recovery room in stable condition. Estimated Blood Loss 10 Drains No Packing No Pathology yes Complications No immediate complications Condition stable Disposition PACU
[2021-08-15 11:09] LABS: Glucose Point of Care 110 mg/dl (65-105)
[2021-08-15] MEDS: fentaNYL CITRATE INJ (*CRX) 100 MCG/2 ML VIAL 25 MCG IV PUSH ×4 (11:09→11:55)
== END 2021-08-15 13:40 | disposition home or self-care (01) ==
PROVIDERS: PCP Emergency Medicine; Visit Provider Surgery
PROC: (CPT 19125; principal; 2021-08-15 09:30)
DX: N63.42 Unspecified lump in left breast, subareolar (principal); N60.32 Fibrosclerosis of left breast; N60.22 Fibroadenosis of left breast; N62 Hypertrophy of breast; R92.0 Mammographic microcalcification found on diagnostic imaging of breast; N60.42 Mammary duct ectasia of left breast; Z79.82 Long term (current) use of aspirin; Z79.84 Long term (current) use of oral hypoglycemic drugs; E03.9 Hypothyroidism, unspecified; M19.90 Unspecified osteoarthritis, unspecified site; E11.9 Type 2 diabetes mellitus without complications; E78.00 Pure hypercholesterolemia, unspecified; Z87.891 Personal history of nicotine dependence
CPT/HCPCS: 19125; 19126; 19281; 19282; 36415; 76098; 80048; 82948; 88305; 88307; A9270; C1769; J0131; J0690; J1100; J2405; J2704; J3010; J7120

== ENCOUNTER 2021-08-17 10:54 | Outpatient (CLI) | payer MEDICARE, SELFPAY ==
--- NOTE | ~2021-08-17 | US_ITS ---
EXAMINATION: US venous doppler LE RT EXAM DATE: 08/17/2021 11:36 INDICATION: M79.604 - Pain in right leg. TECHNIQUE: Multiple grayscale, color flow and Doppler images of the right lower extremity deep venous system were obtained and reviewed. There is no prior study for comparison. FINDINGS: The right common femoral, femoral and profunda veins demonstrate normal color flow, respira tory variation, augmentation and compressibility. Compressibility, color flow confirmed within the r ight popliteal, posterior tibial, peroneal, and greater saphenous veins. IMPRESSION: 1. No right lower extremity deep venous thrombosis. Reviewed, dictated and finalized at location B. TAT BIOLOGIST
== END 2021-08-17 10:55 | disposition home or self-care (01) ==
LOC: ANHIMG 11:01
PROVIDERS: PCP Emergency Medicine; Visit Provider Surgery
DX: M79.604 Pain in right leg (principal)
CPT/HCPCS: 93971

== ENCOUNTER 2022-10-16 12:34 | Emergency (ER) | payer MEDICARE, SELFPAY ==
--- NOTE | ~2022-10-16 | CT_ITS ---
EXAMINATION: CT brain wo con DATE: 10/16/2022 13:49 INDICATION: Status post fall. TECHNIQUE: Computed tomography (CT) of the head was performed without intravenous contrast. The dose- length product was 605.33 mGy-cm. Automated exposure control and iterative reconstruction technique w ere employed. COMPARISON: CT dated 04/26/2017 FINDINGS: Generalized brain parenchymal volume loss. There are scattered mild periventricular and sub cortical white matter changes, most likely related to small vessel ischemic disease (microangiopathy) . Basilar cisterns are patent. There is intracranial atherosclerosis. No acute intracranial hemorrhag e, infarction, mass or mass effect. No ventriculomegaly or midline shift. Paranasal sinuses and masto ids are pneumatized. No depressed skull fractures. IMPRESSION: 1. No acute intracranial abnormality. Reviewed, dictated and finalized at location A. TION TECHNICIAN AIRCRAFT
--- NOTE | ~2022-10-16 | CT_ITS ---
EXAMINATION: CT lumbar spine wo con DATE: 10/16/2022 13:51 INDICATION: Status post fall. Back pain. TECHNIQUE: Computed tomography (CT) of the lumbar spine was performed without intravenous contrast. T he dose-length product was 645.00 mGy-cm. Automated exposure control and iterative reconstruction shantel hnique were employed. COMPARISON: MRI dated 04/09/2017 FINDINGS: There is a new superior endplate compression fracture at T12, likely acute/subacute. There is less than 20% loss of vertebral body height. There is advanced degenerative disc disease at L5-S1. No evidence for spondylolisthesis. There is facet hypertrophy at L5-S1. There is a left pelvic kidne y. There is atherosclerosis. Retroaortic left renal vein. IMPRESSION: 1. Superior endplate compression fracture of T12, likely acute/subacute. 2: Mild lumbar spondylosis. Reviewed, dictated and finalized at location A. PORTAL DEVELOPER
--- NOTE | ~2022-10-16 | XR_ITS ---
EXAM: XR thoracic spine 3V DATE: 10/16/2022 13:54 HISTORY: fall off toilet, mid back pain . COMPARISON: 01/09/2007, CTPA 08/13/2020. FINDINGS: Decreased mineralization. Cholecystectomy clips. Mild thoracic scoliosis. Calcified right upper lung granuloma. Vertebral body alignment intact. Vertebral body heights preserved. Mild multile dmitriy disc space narrowing and marginal osteophytosis. Mild anterior wedge deformity at T11 or T12. Mul tilevel mild concave superior endplate deformities as can be seen with osteoporosis. Visualized lung parenchyma is clear. IMPRESSION: Mild wedge compression fracture at T11 or T12, new since the prior studies, correlate wit h pain/tenderness. Reviewed, dictated and finalized at location K. 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
[2022-10-16 12:40] VITALS: BP 150/63; PULSE 112; RESP 20; TEMP 36.9; O2SAT 99
[2022-10-16 12:52] VITALS: RESP 18; O2SAT 100
--- NOTE | 2022-10-16 13:21 | ED.FALL ---
HPI - Fall General Chief Complaint: Fall Stated Complaint: fall 1 week ago with lower back pain Time Seen by Provider: 10/16/22 13:17 Source: patient and family Mode of arrival: ambulatory Limitations: no limitations History of Present Illness HPI Narrative: Patient is 71 years old white female came to the emergency room by private car complaining of pain at the lower back. Patient was standing on the toilet, lost her balance and fell backward 7 days ago struck the back of her head and tailbone area. She denies loss of consciousness or other injuries. Patient did not see any physician since. She denies focal neurodeficit, fever, chills, nausea, vomiting, abdominal pain, chest pain or neck pain. Lower back pain get worse with certain position and movement, better laying down still. Related Data Home Medications Medication Instructions Recorded Confirmed aspirin 81 mg chewable tablet 81 mg PO HS 11/19/19 11/22/21 Allergies Allergy/AdvReac Type Severity Reaction Status Date / Time propoxyphene Allergy Severe TONGUE Verified 10/16/22 12:55 SWELLING AND STOPPED BREATHING Review of Systems Review of Systems: All systems reviewed & are unremarkable except as noted in HPI and below PMFSH Past Medical History Medical History Arthritis Breast lump Cataracts, both eyes Diabetes Dizziness Fainting Forgetfulness Goiter Hernia High cholesterol Hx of adenomatous colonic polyps Hypothyroidism Irritable bowel syndrome with diarrhea Left-sided abdominal pain of unknown etiology Nervousness Thyroid-related proptosis Surgical History Surgical History H/O: hysterectomy (~1999) History of cataract surgery (~2003) History of cholecystectomy (~1989) Hx of appendectomy (~1979) Hx of tonsillectomy (~1974) Status post excisional biopsy excisional biopsy left breast x2 w/ preop needle 08/15/21 Family History Family History Father , 65 Emphysema, unspecified Mother , 43 Heart attack Social History Social History Social History: The patient lives at home with her . He is a durable power stationary engineer apprentice for healthcare. She has 3 children. 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 No alcohol marijuana or illicit drugs. She desires to be a full code. Smoking packs per day: 1 Smoking cigarettes per day: 20.0 Years smoked: 10 Smoking pack-years: 10.00 Smoking status: Never smoker Tobacco type: cigarettes Second hand tobacco smoke exposure: No Additional smoking assessment comments: STATES QUIT 1974 Alcohol intake: never Substance use: never Substance use type: does not use Gender identity (if verbalized by the patient): Female Sexual Orientation (if Verbalized by the Patient): Straight or Heterosexual Spiritual care concerns: No Exam Narrative: General appearance: Well-developed, well-nourished Skin: Normal color Head: Normocephalic, nontraumatic mild tenderness occipital area, no bruises, no laceration Eyes: Clear conjunctiva ENT: Oropharynx normal, ears normal, nose normal Neck: Supple, nontender Chest and respiratory: Airway patent, no respiratory distress, no accessory muscle use Heart: Regular rate/rhythm Abdomen: Soft, nontender, no organomegaly, quiet bowel sounds Vascular: Normal peripheral pulses, normal capillary refill. Musculoskeletal: Diffuse tenderness across lumbar area no bruises, no swelling, no rash Neurologic: Alert and oriented ?3, GENERAL COUNSELOR is normal as tested, no gross motor deficit
[2022-10-16] MEDS: IBUPROFEN 600 MG TABLET PO (13:59)
== END 2022-10-16 16:14 | disposition home or self-care (01) ==
PROVIDERS: Emergency Provider Emergency Medicine; PCP Emergency Medicine
DX: S22.080A Wedge compression fracture of T11-T12 vertebra, initial encounter for closed fracture (principal); M19.90 Unspecified osteoarthritis, unspecified site; E11.9 Type 2 diabetes mellitus without complications; E78.00 Pure hypercholesterolemia, unspecified; E03.9 Hypothyroidism, unspecified; K58.0 Irritable bowel syndrome with diarrhea; Z98.49 Cataract extraction status, unspecified eye; Z90.710 Acquired absence of both cervix and uterus; Z86.010 Personal history of colon polyps; Z87.891 Personal history of nicotine dependence; Z79.82 Long term (current) use of aspirin; Z79.84 Long term (current) use of oral hypoglycemic drugs; M47.816 Spondylosis without myelopathy or radiculopathy, lumbar region; W17.89XA Other fall from one level to another, initial encounter
CPT/HCPCS: 70450; 72072; 72131; 99284; A9270

== ENCOUNTER 2022-10-18 07:48 | Outpatient (CLI) | payer MEDICARE, SELFPAY ==
--- NOTE | ~2022-10-18 | CT_ITS ---
CT Abdomen and Pelvis with contrast. History: Abdominal pain. Spiral CT of the abdomen and pelvis was performed after the administration of intravenous contrast. 1 00 cc of Omnipaque 350 was administered intravenously without complication. Dose reduction technique was used on this scan by utilizing automated exposure control and iterative reconstruction technique. The dose-length product (DLP) was 316.93 mGy-cm. COMPARISON: 06/01/2021 Findings: Scans through the lung bases demonstrate mild atelectatic change. Small to moderate hiatal hernia present. Small hepatic cyst present. Cholecystectomy clips present. The spleen, pancreas, adrenals and right k idney are within normal limits. 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 No evidence of aortic aneurysm. No lymphadenopathy is seen. There is no evidence of bowel obstruction. There is no evidence to suggest acute appendicitis or dive rticulitis. Images through the pelvis were performed. Urinary bladder unremarkable. Patient is post hysterectomy. No pelvic mass evident. No ascites is seen. Mild compression deformity superior endplate of T12 is noted, age indeterminate. Impression: Mild compression deformity superior endplate of T12, somewhat age indeterminate, but new since prior exam. Consider MR to evaluate for acute bone marrow edema, as indicated. [id number] hiatal hernia, unchanged. Stable ptotic and malrotated left kidney, without hydronephrosis. Reviewed, dictated and finalized at [facility]. INSERT CHANGER Impression: Mild compression deformity superior endplate of T12, somewhat age indeterminate , but new since prior exam. Consider MR to evaluate for acute bone marrow edema , as indicated. [id number] hiatal hernia, unchanged. Stable ptotic and malrotated left kidney, without hydronephrosis.
[2022-10-18 08:11] LABS: Estimated Glomerular Filt Rate > 60
== END 2022-10-18 07:49 | disposition home or self-care (01) ==
PROVIDERS: PCP Emergency Medicine; Visit Provider Nurse Practitioner
DX: R10.9 Unspecified abdominal pain (principal); K44.9 Diaphragmatic hernia without obstruction or gangrene
CPT/HCPCS: 74177; Q9967

== ENCOUNTER 2022-11-07 08:09 | Outpatient (CLI) | payer MEDICARE, SELFPAY ==
[2022-11-07 19:26] LABS: Free T4 Free Thyroxine 1.37 ng/mL (0.78-2.19)
[2022-11-07 19:38] LABS: Alanine Aminotransferase 15 U/L (6-35); Albumin Level 4.3 g/dL (3.5-5.1); Alkaline Phosphatase 75 U/L (38-126); Anion Gap 6 mmol/L (8-16); Aspartate Amino Transferase 42 U/L (14-36); Bilirubin,Total 0.4 mg/dL (0.2-1.3); Blood Urea Nitrogen 16 mg/dL (7-17); Calcium 9.2 mg/dL (8.4-10.2); Carbon Dioxide 29 mmol/L (22-30); Chloride 99 mmol/L (98-107); Cholesterol 165 mg/dL (0-200); Estimated Glomerular Filt Rate > 60; Glucose 90 mg/dL (65-110); HDL Direct 51 mg/dL; Potassium 4.5 mmol/L (3.4-5.0); Sodium 134 mmol/L (137-145); Triglycerides 170 mg/dL (<150)
[2022-11-07 19:46] LABS: Hemoglobin A1C 5.9 % (<5.7)
[2022-11-07 19:49] LABS: LDL Cholesterol Direct 72 mg/dL
[2022-11-07 20:09] LABS: Hematocrit 38.1 % (37.0-47.0); Hemoglobin 11.3 g/dL (12.0-15.0); Mean Corpuscular HGB Conc 29.7 g/dl (32-36); Mean Corpuscular Hemoglobin 24.4 pg (26-34); Mean Corpuscular Volume 82.1 fl (80-100); Mean Platelet Volume 10.6 fl (7.4-10.4); Platelet Count Result 268 k/mm3 (150-375); Red Blood Count 4.64 M/mm3 (4.2-5.4); Red Cell Distribution Width 15.9 % (11.5-14.5); White Blood Count 6.4 K/mm3 (4.5-10.0)
[2022-11-07 20:21] LABS: Creatinine Urine 271.1 mg/dL
[2022-11-07 20:24] LABS: MALB Creatinine Ratio 5.2 mg/g (0-30); Microalbumin Urine Random 14.1 mg/L (0-16.7)
== END 2022-11-07 08:10 | disposition home or self-care (01) ==
LOC: ANHGOSHLAB 08:12
PROVIDERS: PCP Emergency Medicine; Visit Provider Family Medicine
DX: E03.9 Hypothyroidism, unspecified (principal); E78.5 Hyperlipidemia, unspecified; Z13.220 Encounter for screening for lipoid disorders; I10 Essential (primary) hypertension; E11.9 Type 2 diabetes mellitus without complications
CPT/HCPCS: 36415; 80048; 80061; 80076; 82043; 83036; 84439; 84443; 85027

== ENCOUNTER 2022-11-29 10:01 | Outpatient (CLI) | payer MEDICARE, SELFPAY ==
--- NOTE | ~2022-11-29 | XR_ITS ---
EXAMINATION: XR thoracic spine 2V DATE: 11/29/2022 10:21 INDICATION: Vertebral fractures. TECHNIQUE: 3 views of thoracic spine on 4 radiographs were obtained. COMPARISON: Thoracic spine radiographs 10/16/2022, CT abdomen and pelvis 10/18/2022 FINDINGS: There is 12 degrees levoscoliosis of thoracic spine. There is a compression fracture of T12 with 1/5 loss of height. There is severe cervical spondylosis. In the thoracic spine, intervertebral disc heights are normal. There are endplate osteophytes at most levels. IMPRESSION: 1. T12 compression fracture, stable from 10/16/2022. 2. Mild thoracic spondylosis. 3. Thoracic levoscoliosis. Reviewed, dictated and finalized at location A. DIALYSIS LAB TECHNICIAN
== END 2022-11-29 10:02 | disposition home or self-care (01) ==
PROVIDERS: PCP Family Medicine; Visit Provider Nurse Practitioner Adult Health
DX: M47.894 Other spondylosis, thoracic region (principal); S22.080D Wedge compression fracture of T11-T12 vertebra, subsequent encounter for fracture with routine healing; X58.XXXD Exposure to other specified factors, subsequent encounter
CPT/HCPCS: 72070

== ENCOUNTER → 2023-03-20 13:15 | Outpatient (CLI) | payer MEDICARE, SELFPAY ==
--- NOTE | ~2023-03-20 | MM_ITS ---
EXAMINATION: MM screening tiffany BI w kristel HISTORY: Screening mammogram TECHNIQUE: Craniocaudal and mediolateral oblique 3-D tomosynthesis images were obtained and synthetic 2-D images were generated. CAD analysis was submitted and interpreted. COMPARISON: 10/20/2019 diagnostic bilateral mammogram and complete bilateral breast ultrasound examina tion 10/10/2019, 07/18/2018 bilateral screening mammogram examinations BREAST PARENCHYMAL COMPOSITION: The breasts are heterogeneously dense, which may obscure small masses . FINDINGS: There are bilateral breast markers. History of bilateral benign breast biopsies. There is architectural distortion and some retraction in the left breast. Diagnostic left mammogram a nd left breast ultrasound examination are recommended. Otherwise there is no evidence of suspicious mass, calcification, or architectural distortion to sugg est malignancy in either breast. There has been no other suspicious interval change. IMPRESSION: 1. Left breast architectural distortion and retraction 2. Diagnostic left mammogram and left breast also examination are recommended BI-RADS Category 0: Incomplete: Needs additional imaging evaluation. Reviewed, dictated and finalized at location A.
== END ==
PROVIDERS: PCP Family Medicine; Visit Provider Family Medicine
DX: Z12.31 Encounter for screening mammogram for malignant neoplasm of breast (principal); R92.8 Other abnormal and inconclusive findings on diagnostic imaging of breast
CPT/HCPCS: 77063; 77067

== ENCOUNTER 2023-04-09 13:30 | Outpatient (CLI) | payer MEDICARE, SELFPAY ==
--- NOTE | 2023-04-09 13:39 | ECHO_ITS ---
Patient Info Name: Naina Douglas Age: 72 years : 1950 Gender: Female Ht: 62 in Wt: 124 lbs BSA: 1.57 m2 HR: 97 bpm BP: 122 / 71 mmHg Heart Rhythm: Sinus Rhythm Technical Quality: Fair Exam Date: 04/09/2023 1:58 PM Exam Location: [facility] Pulmonary Patient Status: Outpatient Admit Date: 04/09/2023 Staff Ordering Physician: Kalyan Khan DO Furniture Assembler And Installer: Adriana Winchester RDCS Attending Provider: Kalyan Khan DO Referring Physician: Bill DAVENPORT; Exam Type: CA echo doppler color flow Study Info Indications I35.1 - Nonrheumatic aortic (valve) insufficiency Complete two-dimensional, color flow and Doppler transthoracic echocardiogram is performed. Summary 1. Complete two-dimensional, color flow and Doppler transthoracic echocardiogram is performed. 2. Left ventricular chamber dimension is normal. 3. Ventricular septum is sigmoid shaped. No LVOT obstruction. 4. Left ventricular systolic function is normal, estimated at 60-65%. 5. The left ventricular diastolic function is grade I diastolic dysfunction. 6. E/e' 10 is mildly elevated. 7. There is trace aortic valve regurgitation. 8. There is mild mitral valve regurgitation. Left Ventricle Ventricular septum is sigmoid shaped. No LVOT obstruction. E/e' 10 is mildly elevated. Left ventricular chamber dimension is normal. Left ventricular systolic function is normal, estimated at 60-65%. The left ventricular diastolic function is grade I diastolic dysfunction. Right Ventricle Right ventricular chamber dimension is normal. Right ventricular systolic function is normal. Left Atria Left atrial chamber dimension is normal. Right Atria Right atrial chamber dimension is normal. Aortic Valve The aortic valve is trileaflet. There is no aortic valve stenosis. There is trace aortic valve regurgitation. Pulmonic Valve There is no pulmonic regurgitation. Mitral Valve There is no mitral valve stenosis. There is mild mitral valve regurgitation. Tricuspid Valve There is no tricuspid regurgitation. Pericardium/Pleural There is no pericardial effusion. Inferior Vena Cava Normal inferior vena cava with >50% collapse upon inspiration consistent with normal right atrial pressure, 5 mmHg. Aorta The aortic root size at the sinus of Valsalva is normal. Left Ventricular Outflow Tract Name Value Normal LVOT 2D LVOT Diameter 2.0 cm LVOT Doppler LVOT Peak Gradient 4 mmHg LVOT Mean Gradient 2 mmHg LVOT VTI 18 cm LVOT VTI/AV VTI Ratio 0.9 LVOT Stroke Volume 59 ml LVOT CO 5.3 l/min LVOT CI 3.4 l/min/m2 Pulmonic Valve Name Value Normal RVOT Doppler RVOT Peak Gradient 2 mmHg PV Doppler
== END 2023-04-09 13:31 | disposition home or self-care (01) ==
LOC: ANHCARD 13:31
PROVIDERS: PCP Family Medicine; Visit Provider Internal Medicine Cardiovascular Disease
DX: I35.1 Nonrheumatic aortic (valve) insufficiency (principal); I34.0 Nonrheumatic mitral (valve) insufficiency
CPT/HCPCS: 93306

== ENCOUNTER → 2023-05-03 09:23 | Outpatient (CLI) | payer MEDICARE, SELFPAY ==
--- NOTE | ~2023-05-03 | MMUS_ITS ---
EXAMINATION: MM diagnostic tiffany LT w kristel, US breast LT complete HISTORY: Architectural distortion and retraction of left breast reported on 03/20/2023 screening mammo gram examination TECHNIQUE: Additional 3-D tomosynthesis images of the left breast were performed and synthetic 2-D im ages were generated. CAD analysis was submitted and interpreted. High resolution complete left breast ultrasound examination including all 4 quadrants and subareolar area was performed. COMPARISON: 03/20/2023 bilateral screening mammogram 07/12/2021 bilateral diagnostic mammogram FINDINGS: MAMMOGRAPHIC FINDINGS: There is asymmetry and architectural distortion of the left breast. There is a biopsy marker present in the central mid to lower left breast slightly medial to the mid sagittal plane. There is a history of 2 benign left breast biopsies on 07/27/2021, with pathology report of prolifera tive fibrocystic changes without atypia. ULTRASOUND: Subjacent to the area of retraction of the left breast at 3:00 3 cm from the nipple there is a bilobe d approximately 2.3 x 4.1 mm x 2.6 mm sonolucent area without internal vascularity or posterior shado wing. This may be a small postbiopsy seroma. No other suspicious mass or suspicious shadowing or other significant sonographic abnormality of the left breast is evident. IMPRESSION: 1. Postbiopsy architectural distortion and retraction and possible small seroma at 3:00 3 cm from nip ple 2. Six-month diagnostic left mammogram and left targeted breast ultrasound follow-up are recommended BI-RADS category 3, probably benign findings. Reviewed, dictated and finalized at location A. IMPRESSION: 1. Postbiopsy architectural distortion and retraction and possible small seroma at 3:00 3 cm from nipple 2. Six-month diagnostic left mammogram and left targeted breast ultrasound foll ow-up are recommended BI-RADS category 3, probably benign findings.
== END ==
PROVIDERS: PCP Family Medicine; Visit Provider Physician Assistant Medical
DX: R92.8 Other abnormal and inconclusive findings on diagnostic imaging of breast (principal)
CPT/HCPCS: 76641; 77061; 77065; G0279

== ENCOUNTER 2023-10-10 09:06 | Outpatient (CLI) | payer MEDICARE, SELFPAY ==
--- NOTE | 2023-10-10 09:28 | EST_ITS ---
Patient Info Name: Naina Douglas Age: 72 years : 1950 Gender: Female Ht: 62 in Wt: 125 lbs BSA: 1.58 m2 HR: 125 bpm BP: 142 / 75 mmHg Heart Rhythm: Tachycardia Technical Quality: Good Exam Date: 10/10/2023 9:44 AM Exam Location: Echo Lab Exam Room: STRESS LAB [facility] Patient Status: Outpatient Admit Date: 10/10/2023 Staff Ordering Physician: Kalyan Khan DO Clinical Cytogenetics Director: Vy Nichols RDCS Attending Provider: DR. KHAN Referring Physician: Bill DAVENPORT; Exercise Technologist: Adriana Winchester RDCS Exercise Physician: Kalyan Khan DO Exam Type: CA stress echo Study Info Indications R07.89 - Other chest pain Treadmill exercise stress echocardiogram is performed. Summary 1. 1. Abnormal Xavier exercise stress test for ischemic ST changes by ECG criteria. 2. 2. Reduced functional capacity, achieving 4.6 METs of workload. 3. 3. Appropriate HR response to exercise. 4. 4. Appropriate HR recovery at 1 minute post exercise. 5. 5. Baseline hypertension. 6. 6. Abnormal stress echocardiogram demonstrating subtle anteroseptal and septal wall hypokiness suggesting LAD stenosis. 7. 7. Patient informed of the above results. Stress Echo Findings Left Ventricle Subtle anteroseptal and septal wall hypokinesis with systole. No LV dilatation. Left Ventricle Normal LV systolic function, no wall motion abnormality. Protocol: Xavier Stress ECG Details Stage: REST Duration (min): 1 min : 11 sec Speed (mph): 0.0 Grade (%): 0 HR (bpm): 89 SBP (mmHg): 142 DBP (mmHg): 75 METS: --- Stage: REST Duration (min): 11 min : 10 sec Speed (mph): 0.0 Grade (%): 0 HR (bpm): 90 SBP (mmHg): 142 DBP (mmHg): 75 METS: --- Stage: STAGE 1 Duration (min): 1 min : 0 sec Speed (mph): 1.7 Grade (%): 10 HR (bpm): 115 SBP (mmHg): 142 DBP (mmHg): 75 METS: --- Stage: STAGE 1 Duration (min): 2 min : 0 sec Speed (mph): 1.7 Grade (%): 10 HR (bpm): 146 SBP (mmHg): 142 DBP (mmHg): 75 METS: --- Stage: STAGE 1 Duration (min): 2 min : 14 sec Speed (mph): 0.0 Grade (%): 0 HR (bpm): 147 SBP (mmHg): 142 DBP (mmHg): 75 METS: --- Stage: RECOVERY Duration (min): 0 min : 45 sec Speed (mph): 0.0 Grade (%): 0 HR (bpm): 128 SBP (mmHg): 159 DBP (mmHg): 79 METS: --- Stage: RECOVERY Duration (min): 1 min : 45 sec Speed (mph): 0.0 Grade (%): 0 HR (bpm): 104 SBP (mmHg): 159 DBP (mmHg): 79 METS: --- Stage: RECOVERY Duration (min): 2 min : 45 sec Speed (mph): 0.0 Grade (%): 0 HR (bpm): 100 SBP (mmHg): 160 DBP (mmHg): 72 METS: --- Stage: RECOVERY Duration (min): 3 min : 33 sec Speed (mph): 0.0 Grade (%): 0 HR (bpm): 89 SBP (mmHg): 160 DBP (mmHg): 72 METS: --- Rest HR: 90 bpm Peak HR: 146 bpm Rest Sys BP: 142 mmHg Peak Sys BP: 160 mmHg Max Pred HR: 147 bpm % Max Pred HR: 99 % Target HR: 125 bpm Max RPP: 23,360 bpm*mmHg Joiner Score: -7 Termination Reason: Reached target heart rate or workload Cardiac Symptoms: Shortness of breath Max ST Seg Deviation: -1.8
== END 2023-10-10 09:07 | disposition home or self-care (01) ==
LOC: ANHCARD 09:09
PROVIDERS: PCP Family Medicine; Visit Provider Internal Medicine Cardiovascular Disease
DX: R07.9 Chest pain, unspecified (principal); I10 Essential (primary) hypertension
CPT/HCPCS: 93351

== ENCOUNTER → 2023-11-05 08:49 | Outpatient (CLI) | payer MEDICARE, SELFPAY ==
--- NOTE | ~2023-11-05 | MMUS_ITS ---
EXAMINATION: MM diagnostic tiffany LT w kristel, US breast LT limited HISTORY: Six-month follow-up for probably benign left breast mass TECHNIQUE: Craniocaudal, mediolateral, and mediolateral oblique 3-D tomosynthesis images of the left breast were performed and synthetic 2-D images were generated. CAD analysis was submitted and interpr eted. High resolution limited left breast ultrasound was performed. COMPARISON: 05/03/2023, 03/20/2023, 07/12/2021 BREAST PARENCHYMAL COMPOSITION: There are scattered areas of fibroglandular density. FINDINGS: MAMMOGRAPHIC FINDINGS: No suspicious mass, calcification, or architectural distortion are identified to suggest malignancy. There has been no suspicious interval change. ULTRASOUND: The previously described left breast mass is no longer sonographically apparent. IMPRESSION: 1. No mammographic or sonographic evidence of malignancy. 2. Recommend routine screening mammography, due in six months. BI-RADS Category 1: Negative Reviewed, dictated and finalized at location A. ING CENTER MANAGER IMPRESSION: 1. No mammographic or sonographic evidence of malignancy. 2. Recommend routine screening mammography, due in six months. BI-RADS Category 1: Negative
== END ==
PROVIDERS: PCP Physician Assistant Medical; Visit Provider Physician Assistant Medical
DX: R92.8 Other abnormal and inconclusive findings on diagnostic imaging of breast (principal)
CPT/HCPCS: 76642; 77061; 77065; G0279

== ENCOUNTER 2024-04-11 12:29 | Outpatient (CLI) | payer MEDICARE, SELFPAY ==
--- NOTE | ~2024-04-11 | MM_ITS ---
EXAMINATION: MM screening tiffany BI w kristel HISTORY: Screening TECHNIQUE: Craniocaudal and mediolateral oblique 3-D tomosynthesis images were obtained and synthetic 2-D images were generated. CAD analysis was submitted and interpreted. COMPARISON: Comparison to multiple prior studies sequentially, with oldest reviewed study dated 07/01. BREAST PARENCHYMAL COMPOSITION: Not dense: There are scattered areas of fibroglandular density. FINDINGS: There is no evidence of suspicious mass, calcification, or architectural distortion to sugg est malignancy in either breast. There has been no suspicious interval change. IMPRESSION: 1. No mammographic evidence of malignancy. 2. Recommend routine screening mammography in one year. BI-RADS Category 1: Negative Reviewed, dictated and finalized at location B.
== END 2024-04-11 12:30 ==
LOC: MICIMG 12:31
PROVIDERS: PCP Family Medicine; Visit Provider Family Medicine
DX: Z12.31 Encounter for screening mammogram for malignant neoplasm of breast (principal)
CPT/HCPCS: 77063; 77067

== ENCOUNTER 2024-04-29 07:40 | Outpatient (CLI) | payer MEDICARE, SELFPAY ==
--- NOTE | ~2024-04-29 | CT_ITS ---
CT of the Abdomen and Pelvis: Indication: Abdominal pain Technique: 2.5 mm axial scans were obtained through the abdomen and pelvis following intravenous adm inistration of 100 cc of Omnipaque 350. Dose reduction technique was used on this scan by utilizing a utomated exposure control and iterative reconstruction technique. The dose-length product (DLP) was 2 45.38 mGy-cm. COMPARISON: 10/18/2022 Findings: Scans through the lung bases are unremarkable. Moderate hiatal hernia noted. Right hepatic lobe cyst present. The spleen, pancreas, adrenals and right kidney are within normal li mits. Cholecystectomy clips are present. Left kidney is again noted to be ptotic and malrotated.. The re are atherosclerotic calcifications of the aorta. No lymphadenopathy. No bowel obstruction or bowel wall thickening. There is no evidence to suggest acute appendicitis. Images through the pelvis were performed. Urinary bladder unremarkable. No pelvic mass seen. No ascit es. Chronic T12 compression deformity noted. Impression: No acute abnormality. Moderate hiatal hernia. Ptotic and malrotated left kidney. Chronic T12 compression deformity. Reviewed, dictated and finalized at [facility]. Impression: No acute abnormality. Moderate hiatal hernia. Ptotic and malrotated left kidney. Chronic T12 compression deformity.
[2024-04-29 08:03] LABS: Estimated Glomerular Filt Rate > 60
== END 2024-04-29 07:41 | disposition home or self-care (01) ==
PROVIDERS: PCP Family Medicine; Visit Provider Nurse Practitioner
DX: R10.9 Unspecified abdominal pain (principal); K44.9 Diaphragmatic hernia without obstruction or gangrene
CPT/HCPCS: 74177; Q9967

== ENCOUNTER 2024-05-20 06:49 | Day surgery (SDC) | payer MEDICARE, SELFPAY ==
[2024-04-18 11:03] VITALS: BMI 22.7
[2024-05-12 09:06] VITALS: BMI 22.6
--- NOTE | 2024-05-12 10:06 | SUR.PREOP ---
PREOP INTERVIEW COMPLETED. 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 CALLED CARD OFFICE TO GET INFORMATION FROM DR ESPINO'S NURSE. AWAITING CALL BACK. PT AWARE.
--- NOTE | 2024-05-19 12:42 | WPDANESEPPF ---
Anes - Initial Pre Proc Eval Procedure: Operation Date: 05/20/24 09:00 Proposed Procedures p Esophagogastroduodenoscopy - Alessandro Kay MD s Colonoscopy - Alessandro Kay MD Date/Time: 05/19/24 12:42 Surgeon: Alessandro Kay MD Pre Op Diagnosis: Diaphragmatic hernia w/o obstruction/gangrene, Patient Data Age: 73 Gender: F Height: 1.57 m Weight: 56 kg Allergies Allergy/AdvReac Type Severity Reaction Status Date / Time propoxyphene Allergy Severe TONGUE Verified 05/20/24 07:35 SWELLING AND STOPPED BREATHING Home Medications Medication Instructions Recorded Confirmed Type aspirin 81 mg chewable tablet 81 mg PO HS 11/19/19 05/20/24 History blood-glucose meter (OneTouch #1 ea 04/30/20 04/16/24 Rx Ultra2 Meter kit) lancets 33 gauge (OneTouch Delica #100 ea 05/27/21 04/16/24 Rx Lancets) blood sugar diagnostic #100 ea 04/10/22 04/16/24 Rx lisinopril 5 mg tablet 5 mg PO QAM #90 tabs 07/30/23 05/20/24 Rx rosuvastatin 10 mg tablet See Rx Instructions .Route 08/02/23 05/20/24 Rx .COMPLEX #90 tabs ferrous sulfate 325 mg (65 mg 325 mg PO DAILY #90 tabs 11/27/23 05/20/24 Rx iron) tablet pantoprazole 40 mg tablet,delayed 40 mg PO BID #180 tabs 11/27/23 05/20/24 Rx release levothyroxine 50 mcg tablet See Rx Instructions .Route 04/03/24 05/20/24 Rx .COMPLEX #90 tabs empagliflozin 10 mg tablet 10 mg PO DAILY 04/16/24 05/20/24 History (Jardiance) pioglitazone 15 mg tablet 15 mg PO DAILY 04/16/24 05/20/24 History Patient hx anesthesia problems: none Family hx anesthesia problems: none Results Review: All pre-operative results and documents have been reviewed as part of the pre-operative evaluation. [facility] Past Medical History Medical History Arthritis Body mass index (BMI) 21 to less than 23 Breast lump Cataracts, both eyes Compression fracture of T12 vertebra Diabetes Dizziness Fainting Forgetfulness Goiter Hernia High cholesterol HTN (hypertension) Hx of adenomatous colonic polyps Hypothyroidism Irritable bowel Irritable bowel syndrome with diarrhea Left-sided abdominal pain of unknown etiology Memory deficit Nervousness Spinal fracture Thyroid-related proptosis Traumatic compression fracture of eleventh thoracic vertebra Surgical History Surgical History H/O: hysterectomy (~1999) History of cataract surgery (~2003) History of cholecystectomy (~1989) Hx of appendectomy (~1979) Hx of tonsillectomy (~1974) Status post excisional biopsy excisional biopsy left breast x2 w/ preop needle 08/15/21 Family History Family History Father , 65 Emphysema, unspecified Mother , 43 Heart attack Social History Social History Social History: The patient lives at home with her . He is a durable power attorney recruiter for healthcare. She has 3 children. 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 No alcohol marijuana or illicit drugs. She desires to be a full code. Smoking packs per day: 1 Smoking cigarettes per day: 20.0 Years smoked: 10 Smoking pack-years: 10.00 Smoking status: Former smoker Tobacco type: cigarettes Second hand tobacco smoke exposure: No Additional smoking assessment comments: STATES QUIT 1974 Alcohol intake: never Substance use: never Substance use type: does not use Do You Feel Safe in your Home?: Yes Living arrangements: with family Occupation/Education: retired Gender identity (if verbalized by the patient): Female Sexual Orientation (if Verbalized by the Patient): Straight or Heterosexual Spiritual care concerns: No Anes - Eval Final PreProcedure Day of Procedure 05/19/24 12:42 Patient weight: normal Heart: regular rate and rhythm
--- NOTE | 2024-05-19 19:26 | PM.HPGS ---
History of Present Illness History of Present Illness Consent: Risks, benefits, and alternatives have been discussed and questions answered. Patient agrees to proceed with procedure. Chief complaint: Diaphragmatic hernia w/o obstruction/gangrene, Narrative: Naina Douglas is a 73 year old female with ongstanding rflux symptoms and no recent endscopic investigation; aso hx of polyps, last colonoscopy 5 years ago. Review of Systems Review of Systems: All systems reviewed & are unremarkable except as noted in HPI and below PMFSH Past Medical History Medical History Arthritis Body mass index (BMI) 21 to less than 23 Breast lump Cataracts, both eyes Compression fracture of T12 vertebra Diabetes Dizziness Fainting Forgetfulness Goiter Hernia High cholesterol HTN (hypertension) Hx of adenomatous colonic polyps Hypothyroidism Irritable bowel Irritable bowel syndrome with diarrhea Left-sided abdominal pain of unknown etiology Memory deficit Nervousness Spinal fracture Thyroid-related proptosis Traumatic compression fracture of eleventh thoracic vertebra Surgical History Surgical History H/O: hysterectomy (~1999) History of cataract surgery (~2003) History of cholecystectomy (~1989) Hx of appendectomy (~1979) Hx of tonsillectomy (~1974) Status post excisional biopsy excisional biopsy left breast x2 w/ preop needle 08/15/21 Family History Family History Father , 65 Emphysema, unspecified Mother , 43 Heart attack Social History Social History Social History: The patient lives at home with her . He is a durable power insurance defense attorney for healthcare. She has 3 children. 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 No alcohol marijuana or illicit drugs. She desires to be a full code. Smoking packs per day: 1 Smoking cigarettes per day: 20.0 Years smoked: 10 Smoking pack-years: 10.00 Smoking status: Former smoker Tobacco type: cigarettes Second hand tobacco smoke exposure: No Additional smoking assessment comments: STATES QUIT 1973 Alcohol intake: never Substance use: never Substance use type: does not use Do You Feel Safe in your Home?: Yes Living arrangements: with family Occupation/Education: retired Gender identity (if verbalized by the patient): Female Sexual Orientation (if Verbalized by the Patient): Straight or Heterosexual Spiritual care concerns: No Meds Home Medications and Allergies Home Medications Medication Instructions Recorded Confirmed Type aspirin 81 mg chewable tablet 81 mg PO HS 11/19/19 05/20/24 History blood-glucose meter (OneTouch #1 ea 04/30/20 04/16/24 Rx Ultra2 Meter kit) lancets 33 gauge (OneTouch Delica #100 ea 05/27/21 04/16/24 Rx Lancets) blood sugar diagnostic #100 ea 04/10/22 04/16/24 Rx lisinopril 5 mg tablet 5 mg PO QAM #90 tabs 07/30/23 05/20/24 Rx rosuvastatin 10 mg tablet See Rx Instructions .Route 08/02/23 05/20/24 Rx .COMPLEX #90 tabs ferrous sulfate 325 mg (65 mg 325 mg PO DAILY #90 tabs 11/27/23 05/20/24 Rx iron) tablet pantoprazole 40 mg tablet,delayed 40 mg PO BID #180 tabs 11/27/23 05/20/24 Rx release levothyroxine 50 mcg tablet See Rx Instructions .Route 04/03/24 05/20/24 Rx .COMPLEX #90 tabs empagliflozin 10 mg tablet 10 mg PO DAILY 04/16/24 05/20/24 History (Jardiance) pioglitazone 15 mg tablet 15 mg PO DAILY 04/16/24 05/20/24 History Allergies Allergy/AdvReac Type Severity Reaction Status Date / Time propoxyphene Allergy Severe TONGUE Verified 05/20/24 07:35 SWELLING AND STOPPED BREATHING Exam Const: General: alert Orientation/consciousness: patient oriented x3 Resp: Auscultation: clear to auscultation
[2024-05-20 07:43] VITALS: BMI 22.4
[2024-05-20 07:44] VITALS: BP 133/62; PULSE 76; RESP 14; TEMP 37.1; O2SAT 99
[2024-05-20] MEDS: LACTATED RINGERS 1,000 ML 150 ML IV CONT (07:59)
[2024-05-20 08:03] LABS: Glucose Point of Care 114 mg/dl (65-105)
[2024-05-20 09:14] VITALS: BP 105/89; PULSE 80; RESP 14; O2SAT 100
[2024-05-20 09:24] VITALS: BP 115/66; PULSE 70; RESP 16; O2SAT 100
[2024-05-20 09:34] VITALS: BP 132/62; PULSE 65; RESP 16; O2SAT 100
--- NOTE | 2024-05-20 10:12 | WPDANESPN ---
Anes - Prog Note Post-Op Date/Time: 05/20/24 10:12 Cardiovascular status: normal Respiratory status: normal Airway patency: baseline Mental status: baseline Post-Op hydration status: normal Vital Signs: Last Vital Signs Temp 37.1 C 05/20/24 07:44 Pulse 65 05/20/24 09:34 Resp 16 05/20/24 09:34 BP 132/62 05/20/24 09:34 Pulse Ox 100 05/20/24 09:34 O2 Del Method Room Air 05/20/24 09:34 Pain Score (VAS): 0 I/O: Intake & Output 05/19/24 05/20/24 05/20/24 23:59 07:59 15:59 Intake Total 750 Balance 750 05/20/24 07:55 POC Capillary Glucose 114 H Post-procedural complaints: none Patient Feedback: Patient satisfied with anesthetic care. Other Findings: Patient vital signs back to baseline. Patient denies nausea and vomiting. Patient's pain under control. Patient OK for discharge.
== END 2024-05-20 09:44 | disposition home or self-care (01) ==
PROVIDERS: PCP Family Medicine; Visit Provider Internal Medicine Gastroenterology
PROC: 0DJ08ZZ Inspection of Upper Intestinal Tract, Via Natural or Artificial Opening Endoscopic (ICD-10-PCS; CPT 43235; principal; 2024-05-20 09:00)
PROC: 0DJD8ZZ Inspection of Lower Intestinal Tract, Via Natural or Artificial Opening Endoscopic (ICD-10-PCS; CPT 45378; 2024-05-20 09:00)
DX: Z86.010 Personal history of colon polyps (principal); K57.30 Diverticulosis of large intestine without perforation or abscess without bleeding; K31.7 Polyp of stomach and duodenum; K22.70 Barrett's esophagus without dysplasia; K44.9 Diaphragmatic hernia without obstruction or gangrene
CPT/HCPCS: 45378; 43251; 43239

== ENCOUNTER 2024-05-20 07:00 | Outpatient (NON) | payer MEDICARE, SELFPAY | END 2024-05-20 07:01 | disposition home or self-care (01) | LOC: ANHLAB 05-21 11:38 | PROVIDERS: PCP Family Medicine; Visit Provider Internal Medicine Gastroenterology | DX: K21.9 Gastro-esophageal reflux disease without esophagitis (principal) | CPT/HCPCS: 88305 ==

== ENCOUNTER 2024-11-29 10:42 | Observation (INO) | payer MEDICARE, SELFPAY ==
[2024-11-29] VITALS (41 sets, daily range): BP systolic 103–164; BP diastolic 41–73; PULSE 74–106; RESP 12–28; TEMP 36.4–36.7; O2SAT 94–99; BMI 24.8
--- NOTE | ~2024-11-29 | US_ITS ---
Duplex Sonography of the bilateral lower extremities: Indication: Swelling Sagittal and transverse B-mode images as well as color-flow imaging were performed on the right and l eft femoral and popliteal veins. B-mode examination was done without and with compression in the tra nsverse plane. There is good visualization of the bilateral common femoral, proximal profunda femora l, superficial femoral, greater saphenous, and popliteal veins. Normal flow was seen on color-flow im aging. Normal compressibility was demonstrated. Visualized calf veins are also patent. Impression: No evidence of deep vein thrombosis involving the bilateral lower extremities. Reviewed, dictated and finalized at location M. TRIC WIRER Impression: No evidence of deep vein thrombosis involving the bilateral lower e xtremities.
--- NOTE | ~2024-11-29 | XR_ITS ---
EXAMINATION: XR chest 1V portable DATE: 11/29/2024 11:30 INDICATION: Chest pain TECHNIQUE: frontal view of the chest was obtained. COMPARISON: Chest CT dated 08/13/2020 FINDINGS: Hyperexpansion lungs with some increased lucency in the upper lung zones consistent with emphysema be tter appreciated on prior CT. Minimal biapical pleural-parenchymal scarring. No other airspace opacit ies, pulmonary edema, pleural effusion or pneumothorax. Heart size is normal. Moderate sized hiatal h ernia. IMPRESSION: 1. Emphysema. No acute cardiopulmonary disease. 2. Moderate-sized hiatal hernia. Reviewed, dictated and finalized at location A. NG MACHINE OPERATOR DOUBLE END
--- OUTSIDE RECORDS SUMMARY | 2024-11-29 10:45 | XMS_ITS | Encounter Summary ---
Author Organization [facility] Healthcare Address [address] [place] [address] Care Team Providers Care Type Proof Reproducer Name Role Phone Chip Kilgore MD Primary Care Provider Ari Patel MD Unavailable [phone] Alessandro Kay MD Unavailable [phone] Reason for Visit * Reason Onset Date Comments Symptom Based Call 11/20/2024 Encounter Details Date Type Department Care Team (Late st Contact Info) Description 11/20/2024 Telephone [facility] Medical Group Primary Care at [address] [address] Chip Kilgore MD [address] [place] [address] [address] [place] [address] Symptom Based Call Social History Tobacco Use Types Packs/Day Years Used Date Smoking Tobacco: Former Cigarettes 0.1 10 1 974 - 1983 [facility] Utilities Answer Date Recorded In the past 12 months has [employer] [place], gas, oil, or water [employer] threatened to shut off services in your home? No 10/19/2023 Social Connection and Isolat ion Panel [NHANES] Answer Date Recorded In a typical week, how many times do you talk on the phone with family, friends, or neighbors? More than three times a week 10/19/2023 How often do you get togethe r with friends or relatives? More than three times a week 10/19/2023 How often do you attend [facility] or hindu services? More than 4 times per year 10/19/2023 Do you belong to any clubs o r organizations such as jainism groups, unions, fraternal or athletic groups, or school groups? No 10/19/2023 How often do you attend meet ings of the clubs or organizations you belong to? Never 10/19/2023 Are you , , di vorced, , never , or living with a partner? 10/19/2023 AUDIT-C Answer Date Recorded Q1: How often do you have a drink containing alcohol? Never 09/02/2024 Q2: How many drinks containi ng alcohol do you have on a typical day when you are drinking? Patient does not drink Q3: How often do you have si x or more drinks on one occasion? Never 09/02/2024 Overall Financial Resource Strain (CARDIA) Answe r Date Recorded How hard is it for you to pa y for the very basics like food, housing, medical care, and heating? Not hard at all 10/19/2023 PHQ-2 Answer Date Recorded PHQ-2 Total Score (If total score is 3 or more points, staff should administer the PHQ-9) 0 09/02/2024 Hunger Vital Sign Answer Date Recorded Within the past 12 months, y ou worried that your food would run out before you got the money to buy more. Never true 10/19/19 24 Within the past 12 months, t he food you bought just didn't last and you didn't have money to get more. Never true 10/19/2023 PRAPARE - Transportation Answer Date Re corded In the past 12 months, has l ack of transportation kept you from medical appointments or from getting medications? No 10/01 In the past 12 months, has l ack of transportation kept you from meetings, work, or from getting things needed for daily living? No 10/19/2023 Housing Stability Vital Sign Answer López e Recorded In the last 12 months, was t here a time when you were not able to pay the mortgage or rent on time? No 10/19/2023 In the last 12 months, how many places have you lived? 1 10/19/2023 In the last 12 months, was t here a time when you did not have a steady place to sleep or slept in a halfway (including now)? No 10/19/2023 Personal Safety Answer Date Recorded Have you ever been in or are you currently in a harmful physical or emotional relationship or is someone making you feel afraid or unsafe? Denies 10/14/2023 Comments No Sex and Gender Information Value Date Recorded Sex Assigned at Not on file Legal Sex Female 12:12 AM BOUNTY TRAPPER Gender Identity Not on file Sexual Orientation Not on file documented as of this encounter Miscellaneous Notes * Telephone Encounter - Lila Mary MA - 11/21/2024 2:19 PM BOUNTY TRAPPER Pt was seen with [facility] Virtual Care TY TRAPPER * Telephone Encounter - Maggie Moncada - 11/20/2024 10:40 AM CST Symptom Based Call Chief Complaint(s): Cough, nasal congestion, body aches Duration: 3 days What type of symptom(s) is the patient experiencing? Non-Emergent. Is this a new or reoccurring symptom(s)? new What have you tried to help your symptom(s)? Mucinex Why was appointment not scheduled? Patient seeking care without an appointment; appointment was offered by . Additional Comments: Patient does not want to leave their spouse to come in, they are asking for medication (including something for their cough) to be called into [id number] - [place], [place] - [address] Does message need to be routed? Yes-Action Needed TY TRAPPER documented in this encounter Plan of Treatment Not on file documented as of this encounter Visit Diagnoses Not on filedocumented in this encounter Care Teams Type Proof Reproducer Relationship Specialty Start Date End Date Chip Kilgore MD [address] [facility] [address] [place] [address] PCP - General Family Medicine 02/21/24 Ari Patel MD [address] [facility] [address] [place] [address] Consulting Physician Cardiovascular Disease 02/21/24 Alessandro Kay MD [address] [place] [address] Referring Physician Gastroenterology 03/20/24 documented as of this encounter
--- OUTSIDE RECORDS SUMMARY | 2024-11-29 10:45 | XMS_ITS | Referral Summary ---
Author Organization [facility] Address [address] [place] [address] Care Team Providers Care Lead Relay Tester Name Role Phone Patricia Gaytan MD Primary Care Provider Source Comments [facility],non-owned Affiliates and Associated Physician Practices is amultiple site organization consisting of ambulatory clinics and hospital sitesin [place], [place], [place] and [place]. This disclosure is being madepursuant to the Care Everywhere program and may not contain all information available regarding this patient. Last updated 18.[facility] [employer] Immunizations Name Administration Dates Next Due INFLUENZA VACCINE, HIGH-DOSE , QUADR. (FLUZONE HIGH-DOSE QUADRIVALENT; 65Y+), 0.7 ML (HD-IIV4) 07/05/2020 Social History Tobacco Use Types Packs/Day Years Used Date Smoking Tobacco: Never Assessed Sex and Gender Information Value Date Recorded Sex Assigned at Not on file Gender Identity Not on file Sexual Orientation Not on file Plan of Treatment Not on file Care Teams Lead Relay Tester Relationship Specialty Start Date End Date Patricia Gaytan MD [address] [place], [place] [address] [place] [phone] PCP - General 07/28/21
--- OUTSIDE RECORDS SUMMARY | 2024-11-29 10:45 | XMS_ITS | Patient Health Summary ---
Author Organization [facility] Address [address] [facility] [place] [address] Care Team Providers Care Industrial Security Analyst Name Role Phone Patricia Gaytan MD Primary Care Provider Note from [facility],non-owned Affiliates and Associated Physician Practices is amultiple site organization consisting of ambulatory clinics and hospital sitesin [place], [place], [place] and [place]. This disclosure is being madepursuant to the Care Everywhere program and may not contain all information available regarding this patient. Last updated 18.[facility] Immunizations * INFLUENZA VACCINE, HIGH-DOSE, QUADR. (FLUZONE HIGH-DOSE QUADRIVALENT; 65Y+), 0.7 ML (HD-IIV4)(Given 07/05/2020) Social History Tobacco Use Types Packs/Day Years Used Date Smoking Tobacco: Never Assessed Sex and Gender Information Value Date Recorded Sex Assigned at Not on file Gender Identity Not on file Sexual Orientation Not on file Care Teams Industrial Security Analyst Relationship Specialty Start Date End Date Patricia Gaytan MD [address] [place] [address] [address] [place] [phone] PCP - General 07/28/21
--- OUTSIDE RECORDS SUMMARY | 2024-11-29 10:45 | XMS_ITS | Clinical Summary ---
Author Organization [facility] Address [address] [place] [place] [address] Care Team Providers Care Grails Web Application Developer Name Role Phone Patricia Gaytan MD Primary Care Provider [phone] Source Comments [facility],non-owned Affiliates and Associated Physician Practices is amultiple site organization consisting of ambulatory clinics and hospital sitesin [place], [place], [place] and [place]. This disclosure is being madepursuant to the Care Everywhere program and may not contain all information available regarding this patient. Last updated 18.[facility] Immunizations Name Administration Dates Next Due INFLUENZA VACCINE, HIGH-DOSE , QUADR. (FLUZONE HIGH-DOSE QUADRIVALENT; 65Y+), 0.7 ML (HD-IIV4) 07/05/2020 Social History Tobacco Use Types Packs/Day Years Used Date Smoking Tobacco: Never Assessed Sex and Gender Information Value Date Recorded Sex Assigned at Not on file Gender Identity Not on file Sexual Orientation Not on file Plan of Treatment Health Maintenance Due Date Last Done Comments BONE DENSITY TESTING 1950 COLOGUARD (AGES 45-75) - COL ON CA SCREENING 1949 COLON MONITORING 1949 COLONOSCOPY - COLON CA SCREENING 1949 CT COLONOGRAPHY - COLON CA SCREENING 1950 Colorectal Cancer Screening 1949 FIT - COLON CA SCREENING 1949 FLEX SIG - COLON CA SCREENING 1949 LIPID TESTING 1949 MAMMOGRAM 1949 HEPATITIS C SCREENING 12/23/1967 DTAP/TDAP/TD VACCINES (1 - Tdap) 1968 PNEUMOCOCCAL VACCINE 50+ (1 of 1 - PCV) 12/28/1999 ZOSTER VACCINE (1 of 2) 12/28/1999 COVID-19 VACCINE (1 - 2023-2 5 season) 2024 INFLUENZA VACCINE (#1) 2024 07/05/2020 DEPRESSION SCREENING 10/01/2024 MEDICARE AWV CALENDAR YEAR 2024 Respiratory Syncytial Virus (RSV) Vaccine Pt: or over 60 yrs (1 - 1-dose 75+ series) 2024 HEPATITIS B VACCINE Aged Out No longe r eligible based on patient's age to complete this topic HIB VACCINE Aged Out No longer eligi ble based on patient's age to complete this topic HPV VACCINE Aged Out No longer eligi ble based on patient's age to complete this topic MENINGOCOCCAL (Group B) VACCINE Aged Out No longer eligible based on patient's age to complete this topic MENINGOCOCCAL VACCINE Aged Out No al carmina eligible based on patient's age to complete this topic Care Teams Grails Web Application Developer Relationship Specialty Start Date End Date Patricia Gaytan MD [address] [place] [phone] PCP - General 07/28/21
--- OUTSIDE RECORDS SUMMARY | 2024-11-29 10:46 | XMS_ITS | Encounter Summary ---
Author Organization [facility] Healthcare Address [address] [place] [address] Care Team Providers Care Pie Bakery Laborer Name Role Phone Chip Kilgore MD Primary Care Provider Ari Patel MD Unavailable [phone] Alessandro Kya MD Unavailable [phone] Encounter Details Date Type Department Care Team (Late st Contact Info) Description 02/26/2024 Telephone [facility] Medical Group Primary Care at [address] [address] Chip Kilgore MD [address] [place] [address] [address] [place] [address] Social History Tobacco Use Types Packs/Day Years Used Date Smoking Tobacco: Former Cigarettes 0.1 10 [address] [facility] Utilities Answer Date Recorded In the past 12 months has [employer], gas, oil, or water [employer] threatened to shut off services in your [...] week 10/19/2023 How often do you attend [facility] or restoration services? More than 4 times per year 10/19/2023 Do you belong to any clubs o r organizations such as rastafari groups, unions, fraternal or athletic groups, or school groups? No 10/19/2023 How often do you attend meet ings of the clubs or organizations you belong to? Never 10/19/2023 Are you , , di vorced, , never , or living with a partner? 10/19/2023 Overall Financial Resource Strain (CARDIA) Answe r Date Recorded How hard is it for you to pa y for the very basics like food, housing, medical care, and heating? Not hard at all 10/19/2023 PHQ-2 Answer Date Recorded PHQ-2 Total Score (If total score is 3 or more points, staff should administer the PHQ-9) 0 02/21/2024 Hunger Vital Sign Answer Date Recorded Within [...] place to sleep or slept in a retirement (including now)? No 10/19/2023 Personal Safety Answer Date Recorded Have you ever been in or are you currently in a harmful physical or emotional relationship or is someone making you feel afraid or unsafe? Denies 10/14/2023 Comments No Sex and Gender Information Value Date Recorded Sex Assigned at Not on file Legal Sex Female 12:12 AM TEAM FACILITATOR Gender Identity Not on file Sexual Orientation Not on file documented as of this encounter Plan of Treatment Not on file documented as of this encounter Visit Diagnoses Not on filedocumented in this encounter Care Teams Pie Bakery Laborer Relationship Specialty Start Date End Date Chip Kilgore MD [address] [facility] [address] [place] [address] PCP - General Family Medicine 02/21/24 Ari Patel MD [address] [facility] [address] [place] [address] Consulting Physician Cardiovascular Disease 02/21/24 Alessandro Kay MD [address] [place] [address] Referring Physician Gastroenterology 03/20/24 documented as of this encounter
--- OUTSIDE RECORDS SUMMARY | 2024-11-29 10:46 | XMS_ITS | Clinical Summary ---
Author Organization [facility] [address] [facility] [address] Address [address] [place] [address] Care Team Providers Care Drop Count Associate Name Role Phone Chip Kilgore MD Primary Care Provider Ari Patel MD Unavailable Alessandro Kay MD Unavailable [phone] Allergies Active Allergy Reactions Criticality Noted Date Comments Glipizide-Metformin Diarrhea Low 03/03/2024 Metformin Diarrhea High 03/03/2024 Paroxetine Unknown High 05/29/2019 Propoxyphene-Acetaminophen Unknown High 9 Spironolactone Unknown High 05/29/2019 Medications aspirin 81 mg chewable tablet Take 1 tablet (81 mg total) by mouth nightly Active levothyroxine (SYNTHROID) 50 mcg tablet Take 1 tablet (50 mcg total) by mouth director payment before breakfast Active lisinopriL (PRINIVIL,ZESTR IL) 5 mg tablet Take 1 tablet (5 mg total) by mouth daily Active blood glucose diagnostic strip 100 each by other route as directed Use to test blood sugar daily 200 strip 1 4 Active rosuvastatin (CRESTOR) 10 mg tablet Take 1 tablet (10 mg total) by mouth nightly 90 tablet [address] (PROTONIX) 40 mg EC tabletIndicatio ns:Treatment of Non-Bleeding Gastric Disorder Take 1 tablet (40 mg total) by mouth 2 (two) times a day 60 tablet 11 4 05/19/20 25 Active Jardiance 10 mg tabletIndicatio ns:Type 2 diabetes mellitus without complication, without long-term current use of insulin (CMS/HCC) (HCC),Hyperlipi demia associated with type 2 diabetes mellitus (HCC) TAKE 1 TABLET DAILY 90 tablet 1 4 Active lancets 33 gauge miscIndications :Hyperlipidemia associated with type 2 diabetes mellitus (HCC) For daily blood glucose checking 300 each 3 4 Active pioglitazone (ACTOS) 15 mg tablet TAKE 1 TABLET DAILY 100 tablet 1 4 Active ferrous sulfate 325 mg (65 mg of elemental iron) tabletIndicatio ns:Iron Deficiency Anemia Take 1 tablet (325 mg total) by mouth daily with breakfast Active promethazine-DM (PROMETHAZINE-D M) 1.25-3 mg/mL syrup Take 5 mL by mouth every 4 (four) hours as needed for cough 240 mL 5 Active oseltamivir (TAMIFLU) 75 mg capsuleIndicati ons:Influenza Take 1 capsule (75 mg total) by mouth 2 (two) times a day for 5 days 10 capsule 5 11/25/19 25 Active Problems Problem Noted Date Diagnosed Date Encounter for Medicare annual wellness exam 11/2023 Assessment & Plan (09/02/2024 10:52 AM MANAGER SERVICING): A(n) yearly Medicare Annual Wellness Visit has been performed today. Naina Douglas is not up to date on screening tests. She is in need of Diabetic foot exam, Hepatitis B, and Hepatitis C screen. She is not up to date on needed preventative vaccinations; She is in need of Pneumonia (Prevnar-13 or Pneumovax-23). We discussed healthy lifestyle habits, educational material has been given. Medications reviewed, changes documented as per the medical record and discussed with patient along with risks vs benefits. Specific topics reviewed: drugs, ETOH, and tobacco, importance of regular dental care, importance of regular exercise, importance of varied diet, limit TV, media violence, minimize junk food, and seat belts. Return in 6 months Diverticulosis 05/27/2024 Establishing care with new doctor, encounter for 02/21/2024 Assessment & Plan (02/21/2024 8:24 AM CDT): A(n) initial well visit to establish care has been performed today. Naina Douglas is not up to date on screening tests. She is in need of Diabetic eye exam, Diabetic foot exam, Breast cancer screening, hepatitis C, Colon cancer screening, Diabetic kidney disease screening, and Cholesterol screening. She is not up to date on needed preventative vaccinations; She is in need of Pneumonia (Prevnar-13 or Pneumovax- 23). We discussed healthy lifestyle habits, educational material has been given. Medications reviewed, changes documented as per the medical record and discussed with patient along with risks vs benefits. Return in 3 months Aortic valve regurgitation 07/03/2019 Diabetes mellitus 05/29/2019 Hiatal hernia 05/29/2019 Hyperlipidemia associated with type 2 diabetes m ellitus 05/29/2019 Palpitations 05/29/2019 Resolved Problems Problem Noted Date Diagnosed Date Resolved Date Chest pain, unspecified type 10/14/2023 09/02/2024 Encounters Date Type Department Care Team Description 11/20/2024 9:00 PM MANAGER SERVICING Telemedicine [facility] [address] [place] [phone] Feli Trejo NP Flu-like symptoms (Primary Dx) 11/20/2024 Nurse Triage [facility] at [address] [phone] Chip Kilgore MD 11/20/2024 Telephone [facility] at [address] [phone] Chip Kilgore MD Symptom Based Call 09/04/2024 Telephone [facility] at [address] [phone] Chip Kilgore MD Test Results (labs) 09/02/2024 11:45 AM MANAGER SERVICING Lab [facility] at [address] [phone] Encounter for Medicare annual wellness exam (Primary Dx); Establishing care with new doctor, encounter for 09/02/2024 10:30 AM MANAGER SERVICING Office Visit [facility] at [address] [phone] Chip Kilgore MD Encounter for Medicare annual wellness exam (Primary Dx); Hyperlipidemia associated with type 2 diabetes mellitus (HCC); Diverticulosis; Hiatal hernia; Thyromegaly; Screening for diabetic retinopathy 09/02/2024 9:46 AM MANAGER SERVICING - 09/02/2024 11:59 PM MANAGER SERVICING Hospital Encounter [address] [address] Thyromegaly; Hyperlipidemia associated with type 2 diabetes mellitus (HCC); Hiatal hernia; Hyperlipidemia associated with type 2 diabetes mellitus (HCC) Discharge Disposition: Discharge to home or self care from Last 3 Months Immunizations Immunization Administration Dates Next Due Influenza, Quadrivalent, Hig h Dose, Preservative Free, Intrr 07/05/2020 Influenza, Trivalent, High D ose, Split, Preservative Free, Intramuscular 09/02/2024 Influenza, Unspecified 09/02/2024(Deferr ed: Patient Refused),05/01/2023(Deferred: Patient Refused),07/05/2020 Surgical History Surgery Date Site/Laterality Comments TONSILLECTOMY HYSTERECTOMY CHOLECYSTECTOMY BREAST SURGERY Left lumpectomy Medical History Medical History Date Comments Hypertension Diabetes mellitus (HCC) Hyperlipidemia Family History Medical History Relation Name Comments Dementia Brother 1 Lung disease Father Heart attack Mother Ulcers Mother Lung disease Sister Relation Name Status Comments Brother 1 Alive Brother 2 Alive Father Mother Sister Alive Social History Tobacco Use Types Packs/Day Years Used Date Smoking Tobacco: Former Cigarettes 0.1 10 1 974 - 1983 Tobacco Cessation:Counseling Given: Not Answered [facility] Utilities Answer Date Recorded In the past 12 months has [employer], gas, oil, or water [employer] threatened to shut off services in your [...] 10/19/2023 How often do you attend [facility] or mosque services? More than 4 times per year 10/19/2023 Do you belong to any clubs o r organizations such as uatsdin groups, unions, fraternal or athletic groups, or [...] place to sleep or slept in a care home (including now)? No 10/19/2023 Personal Safety Answer Date Recorded Have you ever been in or are you currently in a harmful physical or emotional relationship or is someone making you feel afraid or unsafe? Denies 10/14/2023 Comments No Sex and Gender Information Value Date Recorded Sex Assigned at Not on file Legal Sex Female 12:12 AM MANAGER SERVICING Gender Identity Not on file Sexual Orientation Not on file Obstetrics History Last Filed Vital Signs Vital Sign Reading Time Taken Comments Blood Pressure 132/80 09/02/2024 10:41 AM MANAGER SERVICING Pulse 74 09/02/2024 10:41 AM MANAGER SERVICING Temperature 35.9 C (96.7 F) 09/02/2024 10:41 AM MANAGER SERVICING Respiratory Rate 16 09/02/2024 10:41 AM MANAGER SERVICING Oxygen Saturation 98% 09/02/2024 10:41 AM MANAGER SERVICING Inhaled Oxygen Concentration - - Weight 60.8 kg (134 lb) 09/02/2024 10:41 AM MANAGER SERVICING Height 157.5 cm (5' 2 ) 09/02/2024 10:41 AM MANAGER SERVICING Body Mass Index 24.51 09/02/2024 10:41 AM MANAGER SERVICING Plan of Treatment Health Maintenance Due Date Last Done Comments Hepatitis C Screening 1950 Dilated Eye Exam 1950 Hepatitis B Screening 12/28/1967 Pneumococcal vaccine 65+ (1 of 2 - PCV) 1968 Covid-19 Vaccine (2 - season) 2024 01/07/2021 Osteoporosis Screening-Bone Density Scan 02/20/2025 Postponed from 1950 (Patient declined, but will receive in the future) Zoster Vaccine (1 of 2) 02/20/2025 Post poned from 12/28/1999 (Insurance / Financial) Hemoglobin A1C 03/03/2025 09/02/2024, 08/03/2024, 02/21/2024, Additional history exists Breast Cancer Screening-Mammogram 04/11/2025 04/11/2024 Albumin Creatinine Ratio, Urine 09/02/2025 09/02/2024, 02/21/2024 Depression Screening 09/02/2025 09/02/2024, 05/27/2024, 05/09/2024, Additional history exists Fall Risk Assessment 09/02/2025 09/02/2024, 02/21/2024, 10/18/2023 Foot Exam 09/02/2025 09/02/2024, 09/02/2024 Lipid Panel 09/02/2025 09/02/2024, 10/17/2023 Well Visit 65+ 09/02/2025 09/02/2024 eGFR 09/02/2025 09/02/2024, 01/30, 10/17/2023, Additional history exists DTaP/Tdap/Td Vaccine (2 - Td or Tdap) 10/23/2028 10/23/2018 Colon Cancer Screening-Colonoscopy 05/20/2029 05/20/2024 Influenza Vaccine Completed 09/02/2024, , 07/05/2020, Additional history exists Procedures Procedure Name Priority Date/Time Associated Diagnosis Comments EGFR Routine 09/02/2024 11:35 AM MANAGER SERVICING Hyperlipidemia associated with type 2 diabetes mellitus (HCC) DIFFERENTIAL AUTO Routine 09/02/2024 11: 35 AM MANAGER SERVICING Hyperlipidemia associated with type 2 diabetes mellitus (HCC) Hiatal hernia ALBUMIN CREATININE RATIO, URINE Routine 09/02/2024 11:35 AM MANAGER SERVICING Hyperlipidemia associated with type 2 diabetes mellitus (HCC) CBC WITH AUTO DIFFERENTIAL Routine 09/02/2024 11:35 AM MANAGER SERVICING Hyperlipidemia associated with type 2 diabetes mellitus (HCC) Hiatal hernia COMPREHENSIVE METABOLIC PANEL Routine 09/02/2024 11:35 AM MANAGER SERVICING Hyperlipidemia associated with type 2 diabetes mellitus (HCC) HEMOGLOBIN A1C Routine 09/02/2024 11:35 AM MANAGER SERVICING Hyperlipidemia associated with type 2 diabetes mellitus (HCC) LIPID PANEL Routine 09/02/2024 11:35 AM MANAGER SERVICING Hyperlipidemia associated with type 2 diabetes mellitus (HCC) THYROID FUNCTION CASCADE Routine 09/02/2024 11:35 AM MANAGER SERVICING Thyromegaly HM COLONOSCOPY Routine 05/20/2024 2:17 PM CDT HM MAMMOGRAPHY Routine 04/11/2024 12:00 PM CDT from Last 3 Months or Most Recently Relevant to Health Maintenance Results * eGFR (09/02/2024 11:35 AM MANAGER SERVICING) eGFR 72 >=60 mL/min/1. 73 m2 Comment: Interpretive Data Reference Interval Normal >/= 90 mL/min/1.73m2 Mildly decreased* 60 - 89 mL/min/1.73m2 Mildly to moderately decreased 45 - 59 mL/min/1.73m2 Moderately to severely decreased 30 - 44 mL/min/1.73m2 Severely decreased 15 - 29 mL/min/1.73m2 Kidney Failure < 15 mL/min/1.73m2 *Relative to young adult level Estimated glomerular filtration rate is determined by the 2020 CKD-EPI equation recommended by the National Kidney Foundation (A Unifying Approach to GFR Estimation: Recommendations of the NKF-ASK Task Force on Reassessing the Inclusion of Race in Diagnosing Kidney Disease, JASN 2020). The CKD-EPI equation should not be used for patients with unstable renal function and has not been validated in children and those over 70. Current interpretive data was last reviewed 2021. Blood 09/02/2024 11:3 5 AM MANAGER SERVICING 09/02/2024 10:20 PM MANAGER SERVICING us Chip Kilgore MD LAB BLOOD ORDERABLES Final Result [facility] [address] Department [place] [address] * Differential, auto (09/02/2024 11:35 AM MANAGER SERVICING) Neutrophil abs 2.4 1.5 - 6.5 K/cumm Imm gran abs 0.0 0.0 - 0.1 K/cumm [facility] Lymphocyte abs 1.9 0.8 - 3.3 K/cumm [facility] Monocyte abs 0.4 0.2 - 0.8 K/cumm [facility] Eosinophil abs 0.0 0.0 - 0.5 K/cumm [facility] Basophil abs 0.0 0.0 - 0.1 K/cumm [facility] Neutrophil pct 51.2 % [facility] Comment: Interpretive Data Percent cell count reference ranges are not reported, since discordance with absolute values may lead to misinterpretation of CBC data. Current Interpretive Data was last revised on 2018. Imm gran pct 0.2 % [facility] Comment: Interpretive Data Percent cell count reference ranges are not reported, since discordance with absolute values may lead to misinterpretation of CBC data. Current Interpretive Data was last revised on 2018. Lymphocyte pct 39.7 % [facility] Comment: Interpretive Data Percent cell count reference ranges are not reported, since discordance with absolute values may lead to misinterpretation of CBC data. Current Interpretive Data was last revised on 2018. Monocyte pct 7.7 % [facility] Comment: Interpretive Data Percent cell count reference ranges are not reported, since discordance with absolute values may lead to misinterpretation of CBC data. Current Interpretive Data was last revised on 2018. Eosinophil pct 0.8 % [facility] Comment: Interpretive Data Percent cell count reference ranges are not reported, since discordance with absolute values may lead to misinterpretation of CBC data. Current Interpretive Data was last revised on 2018. Basophil pct 0.4 % [facility] Comment: Interpretive Data Percent cell count reference ranges are not reported, since discordance with absolute values may lead to misinterpretation of CBC data. Current Interpretive Data was last revised on 2018. Blood 09/02/2024 11:3 5 AM MANAGER SERVICING 09/02/2024 10:09 PM MANAGER SERVICING us Chip Kilgore MD LAB BLOOD ORDERABLES Final Result [facility] [address] Department [place] [address] * Thyroid Function [place] (09/02/2024 11:35 AM MANAGER SERVICING) TSH 3.00 0.30 - 4.20 mcIUnit/mL Blood 09/02/2024 11:3 5 AM MANAGER SERVICING 09/02/2024 10:09 PM MANAGER SERVICING Chip Kilgore MD LAB BLOOD ORDERABLES Final Result Performing Organization Address [facility] de Phone Number [facility] FRIAS [address] Department [place] [address] * (ABNORMAL) CBC with auto differential (09/02/2024 11:35 AM MANAGER SERVICING) [facility] WBC 4.8 3.8 - 9.9 K/cumm Hgb 13.6 11.9 - 15.5 g/dL [facility] Hct 43.8 35.6 - 45.5 % [facility] Plt 245 150 - 400 K/cumm [facility] MPV 10.2 9.1 - 12.3 fL [facility] RBC 4.42 3.90 - 5.20 M/cumm [facility] MCV 99.1(H) 81.3 - 96.4 fL [facility] MCH 30.8 27.1 - 33.3 pg [facility] MCHC 31.1(L) 32.3 - 35.7 g/dL [facility] RDW CV 13.0 11.1 - 14.9 % [facility] RDW SD 47.3 35.7 - 48.1 fL [facility] NRBC abs 0.00 0.00 - 0.01 K/cumm [facility] Blood 09/02/2024 11:3 5 AM MANAGER SERVICING 09/02/2024 10:09 PM MANAGER SERVICING Chip Kilgore MD LAB BLOOD ORDERABLES Final Result Performing Organization Address [facility] de Phone Number [facility] FRIAS [address] Department [place] [address] * Albumin Creatinine Ratio, Urine (09/02/2024 11:35 AM MANAGER SERVICING) [facility] Albumin Ur <12.0 mg/L Comment: Interpretive Data No reference range established. Current interpretive data was last revised 2019. Creatinine Ur 33.5 mg/dL [facility] Comment: Interpretive Data No reference range established. Current interpretive data was last revised 2019. Albumin Creatinine Ratio, Ur See Comment 1 - 29 [facility] Comment:Unable to calculate Urine 09/02/2024 11:3 5 AM MANAGER SERVICING 09/02/2024 10:09 PM MANAGER SERVICING Result [facility] Chip Kilgore MD LAB URINE ORDERABLES Final Result Performing Organization Address [facility] Co de Phone Number [facility] [address] Department [place] [address] * (ABNORMAL) Hemoglobin A1c (09/02/2024 11:35 AM MANAGER SERVICING) Hgb A1C 5.9(H) 4.0 - 5.6 % Estimated Average Glucose 123 mg/dL [facility] Comment: The ADA recommends reporting an estimated Average Glucose (eAG) with all Hemoglobin A1c results using the equation derived from a study of 507 normal and diabetic adults. Minority populations were underrepresented and children were not included. (Diabetes Care 31:9846-1848, 2008). The eAG is not equivalent to a fasting glucose. Blood 09/02/2024 11:3 5 AM MANAGER SERVICING 09/02/2024 10:09 PM MANAGER SERVICING Result [facility] Chip Kilgore MD LAB BLOOD ORDERABLES Final Result Performing Organization Address [facility] Co de Phone Number [facility] FRIAS [address] [facility] [place] [address] * (ABNORMAL) Lipid panel (09/02/2024 11:35 AM MANAGER SERVICING) Cholesterol 206(H) 30 - 199 mg/dL Comment: Interpretive Data Ages < or = 19 years Acceptable: <170 mg/dL Borderline high: 170-199 mg/dL High: >or= 200 mg/dL Ages > or = 20 years Desirable: <200 mg/dL Borderline high: 200-239 mg/dL High: >or= 240 mg/dL Literature References: 1. Expert Panel on Integrated Guidelines for Cardiovascular Health and Risk Reduction in Children and Adolescents. Pediatrics 2011;128:S213 2. NCEP Expert Panel. Circulation 2004;110:227 Current Interpretive Data was last revised on 2018. Triglycerides 103 <=149 mg/dL [facility] Comment: Interpretive Data Ages < or = 9 years Acceptable: <75 mg/dL Borderline high: 75-99 mg/dL High: >or= 100 mg/dL Ages 10 to 20 years Acceptable: <90 mg/dL Borderline high: 90-129 mg/dL High: >or= 130 mg/dL Ages > or = 20 years Desirable: <150 mg/dL Borderline high: 150-199 mg/dL High: 200-499 mg/dL Very high: >or= 499 mg/dL Literature References: 1. Expert Panel on Integrated Guidelines for Cardiovascular Health and Risk Reduction in Children and Adolescents. Pediatrics 2011;128:S213 2. NCEP Expert Panel. Circulation 2004;110:227 Current Interpretive Data was last revised on 2018. HDL 64 >=40 mg/dL [facility] Comment: Interpretive Data Ages < or = 19 years Acceptable: >45 mg/dL Borderline low: 40-45 mg/dL Low: <40 mg/dL Ages > or = 20 years Desirable: >or= 60 mg/dL Low: <40 mg/dL Literature References: 1. Expert Panel on Integrated Guidelines for Cardiovascular Health and Risk Reduction in Children and Adolescents. Pediatrics 2011;128:S213 2. NCEP Expert Panel. Circulation 2004;110:227 Current Interpretive Data was last revised on 2018. LDL, calculated 124 <=129 mg/dL [facility] Comment: Interpretive Data Ages < or = 19 years Acceptable: <110 mg/dL Borderline high: 110-129 mg/dL High: >or= 130 mg/dL Ages > or = 20 years Optimal: <100 mg/dL Near optimal: 100-129 mg/dL Borderline high: 130-159 mg/dL High: >160 mg/dL Calculated using the Carlos LDL-C estimating equation. This equation was implemented on 2024. Prior to this date LDL-C was estimated using the Friedewald equation. Literature References: 1. Expert Panel on Integrated Guidelines for Cardiovascular Health and Risk Reduction in Children and Adolescents. Pediatrics 2011;128:S213 2. NCEP Expert Panel. Circulation 2004;110:227 3. Carlos Gómez et al. KRISTEN Cardiol. 2020 January 29;5(5):540-548. doi: 10.1001/jamacardio.2020.0013 Current Interpretive Data was last revised on 2024. Non-HDL Cholesterol 142 mg/dL [facility] Comment: Interpretive Data Ages < or = 19 years Acceptable: <120 mg/dL Borderline high: 120-144 mg/dL High: >145 mg/dL Ages > or = 20 years When triglycerides are >200 mg/dL, Non-HDL cholesterol is a secondary target of therapy with treatment goals that are 30 mg/dL greater than the LDL cholesterol target. Literature References: 1. Expert Panel on Integrated Guidelines for Cardiovascular Health and Risk Reduction in Children and Adolescents. Pediatrics 2011;128:S213 2. NCEP Expert Panel. Circulation 2004;110:227 Current Interpretive Data was last revised on 2018. Chol/HDL ratio 3 [facility] Blood 09/02/2024 11:3 5 AM MANAGER SERVICING 09/02/2024 10:09 PM MANAGER SERVICING Chip Kilgore MD LAB BLOOD ORDERABLES Final Result [facility] [address] Department [place] [address] * Comprehensive metabolic panel (09/02/2024 11:35 AM MANAGER SERVICING) Sodium 137 135 - 145 mmol/L Potassium, pl 4.6 3.3 - 4.9 mmol/L [facility] Chloride 102 97 - 110 mmol/L [facility] CO2 26 22 - 32 mmol/L [facility] Anion gap 9 2 - 15 mmol/L [facility] BUN 16 6 - 25 mg/dL [facility] Creatinine 0.85 0.60 - 1.10 mg/dL [facility] Glucose 99 70 - 199 mg/dL [facility] Comment: Interpretive Data Fasting glucose >/= 126 mg/dl is diagnostic for diabetes. Fasting is defined as no caloric intake for at least 8 hours. Fasting glucose between 100 mg/dl to 125 mg/dl is diagnostic of prediabetes. In a patient with classic symptoms of hyperglycemia or hyperglycemic crisis, a random glucose >/= 200 mg/dl is diagnostic for diabetes. In the absence of unequivocal hyperglycemia, results should be confirmed by repeat testing. The classification and Diagnosis of Diabetes Diabetes Care 2021; 46: S19-S40. Current interpretive data was last revised 2022. Calcium 9.9 8.5 - 10.3 mg/dL [facility] Bilirubin, total 0.4 0.1 - 1.2 mg/dL [facility] Protein, pl 7.4 6.5 - 8.5 g/dL [facility] Albumin 4.3 3.5 - 5.0 g/dL [facility] Alk phos 80 40 - 130 Units/L [facility] ALT 12 7 - 45 Units/L [facility] AST 37 10 - 45 Units/L [facility] Blood 09/02/2024 11:3 5 AM MANAGER SERVICING 09/02/2024 10:09 PM MANAGER SERVICING Chip Kilgore MD LAB BLOOD ORDERABLES Final Result [facility] [address] Department [place] [address] * (ABNORMAL) COLONOSCOPY (05/20/2024 2:17 PM CDT) Scribed Colonoscopy Abnormal Historical Provider HEALTH MAINTENANCE Final Result * MAMMOGRAPHY (04/11/2024 12:00 PM CDT) Glenny Leon MD HEALTH MAINTENANCE Final Result from Last 3 Months or Most Recently Relevant to Health Maintenance Insurance T MEDICARE [employer] MEDICARE [facility] MED[facility] Address: [facility] [id number] [place] [phone] [employer] MEDICARE Advance Directives For more information, please contact: [phone] * Full Code (Latest Code Status on File) Date Activated Date Inactivated Comments 10/16/2023 9:48 PM 10/18/2023 5:02 PM Care Teams Drop Count Associate Relationship Specialty Start Date End Date Chip Kilgore MD [address] [place] [address] PCP - General Family Medicine 02/21/24 Ari Patel MD [address] [place] [address] Consulting Physician Cardiovascular Disease 02/21/24 Alessandro Kay MD [address] [place] [address] Referring Physician Gastroenterology 03/20/24
--- OUTSIDE RECORDS SUMMARY | 2024-11-29 10:46 | XMS_ITS | Referral Summary ---
Author Organization [facility] [place] [address] Address [address] [place] [address] Care Team Providers Care Vacuum Form Operator Name Role Phone Chip Kilgore MD Primary Care Provider Ari Patel MD Unavailable [phone] Alessandro Kay MD Unavailable [phone] Encounters Date Type Department Care Team Description 11/20/2024 9:00 PM CL[facility]INKER Telemedicine [address] [address] Feli Trejo NP Flu-like symptoms (Primary Dx) 11/20/2024 Nurse Triage [facility] Primary Care at [address] [address] Chip Kilgore MD 11/20/2024 Telephone [facility] Primary Care at [address] [address] Chip Kilgore MD Symptom Based Call 09/04/2024 Telephone [facility] Primary Care at [address] [address] Chip Kilgore MD Test Results (labs) 09/02/2024 9:46 AM CLOTH SHRINKER - 09/02/2024 11:59 PM [facility] Hospital Encounter [address] [address] Thyromegaly; Hyperlipidemia associated with type 2 diabetes mellitus (HCC); Hiatal hernia; Hyperlipidemia associated with type 2 diabetes mellitus (HCC) Discharge Disposition: Discharge to home or self care 09/02/2024 11:45 AM [facility] SHR[facility]ER Lab [facility] Outpatient Lab at [address] [phone] Encounter for Medicare annual wellness exam (Primary Dx); Establishing care with new doctor, encounter for 09/02/2024 10:30 AM CL[facility] SHRINKER Office Visit [facility] Primary Care at [address] [address] Chip Kilgore MD Encounter for Medicare annual wellness exam (Primary Dx); Hyperlipidemia associated with type 2 diabetes mellitus (HCC); Diverticulosis; Hiatal hernia; Thyromegaly; Screening for diabetic retinopathy from Last 3 Months Allergies Active Allergy Reactions Criticality Noted Date Comments Glipizide-Metformin Diarrhea Low 03/03/2024 Metformin Diarrhea High 03/03/2024 Paroxetine Unknown High 05/29/2019 Propoxyphene-Acetaminophen Unknown High 9 Spironolactone Unknown High 05/29/2019 Medications aspirin 81 mg chewable tablet Take 1 tablet (81 mg total) by mouth nightly Active levothyroxine (SYNTHROID) 50 mcg tablet Take 1 tablet (50 mcg total) 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 Active lisinopriL (PRINIVIL,ZESTR [place]) 5 [...] complication, without long-term current use of insulin ([facility]) (HCC),Hyperlipi demia associated with type 2 diabetes [...] 11/2023 Assessment & Plan (09/02/2024 10:52 AM CLOTH SHRINKER): A(n) yearly Medicare Annual Wellness Visit has [...] Date Chest pain, unspecified type 10/14/2023 09/02/2024 Immunizations Immunization Administration Dates Next Due Influenza, Quadrivalent, Hig h Dose, Preservative Free, Intrr 07/05/2020 Influenza, Trivalent, High D ose, Split, Preservative Free, Intramuscular 09/02/2024 Influenza, Unspecified 09/02/2024(Deferr ed: Patient Refused),05/01/2023(Deferred: Patient Refused),07/05/2020 Social History Tobacco Use Types Packs/Day Years Used Date Smoking Tobacco: Former Cigarettes 0.1 10 1 974 - 1983 Tobacco Cessation:Counseling Given: Not Answered [facility] [employer]iddle[employer] Answer Date Recorded In the past 12 months has e [employer] gas, oil, or water [employer] threatened to shut off services in your [...] week 10/19/2023 How often do you attend chur ch or samaritan services? More than 4 times per year 10/19/2023 Do you belong to any clubs o r organizations such as sikh groups, unions, fraternal or athletic groups, or [...] place to sleep or slept in a fdc (including now)? No 10/19/2023 Personal Safety Answer Date Recorded Have you ever been in or are you currently in a harmful physical or emotional relationship or is someone making you feel afraid or unsafe? Denies 10/14/2023 Comments No Sex and Gender Information Value Date Recorded Sex Assigned at Not on file Legal Sex Female 12:12 AM CL[facility] SHRINKER Gender Identity Not on file Sexual Orientation Not on file Last Filed Vital Signs Vital Sign Reading Time Taken Comments Blood Pressure 132/80 09/02/2024 10:41 AM CL[facility] SHRINKER Pulse 74 09/02/2024 10:41 AM CLOTH SHRINKER Temperature 35.9 C (96.7 F) 09/02/2024 10:41 AM CLOTH SHRINKER Respiratory Rate 16 09/02/2024 10:41 AM CLOTH SHRINKER Oxygen Saturation 98% 09/02/2024 10:41 AM CLOTH SHRINKER Inhaled Oxygen Concentration - - Weight 60.8 kg (134 lb) 09/02/2024 10:41 AM CLOTH SHRINKER Height 157.5 cm (5' 2 ) 09/02/2024 10:41 AM CLOTH SHRINKER Body Mass Index 24.51 09/02/2024 10:41 AM CL[facility] SHRINKER Plan of Treatment Not on file Procedures Procedure Name Priority Date/Time Associated Diagnosis Comments EGFR Routine 09/02/2024 11:35 AM CL[facility] SHRINKER Hyperlipidemia associated with type 2 diabetes mellitus (HCC) DIFFERENTIAL AUTO Routine 09/02/2024 11: 35 AM CL[facility] SHRINKER Hyperlipidemia associated with type 2 diabetes mellitus (HCC) Hiatal hernia ALBUMIN CREATININE RATIO, URINE Routine 09/02/2024 11:35 AM CL[facility] SHRINKER Hyperlipidemia associated with type 2 diabetes mellitus (HCC) CBC WITH AUTO DIFFERENTIAL Routine 09/02/2024 11:35 AM CLOTH SHRINKER Hyperlipidemia associated with type 2 diabetes mellitus (HCC) Hiatal hernia COMPREHENSIVE METABOLIC PANEL Routine 09/02/2024 11:35 AM CL[facility] SHRINKER Hyperlipidemia associated with type 2 diabetes mellitus (HCC) HEMOGLOBIN A1C Routine 09/02/2024 11:35 AM CLOTH SHRINKER Hyperlipidemia associated with type 2 diabetes mellitus (HCC) LIPID PANEL Routine 09/02/2024 11:35 AM CLOTH SHRINKER Hyperlipidemia associated with type 2 diabetes mellitus (HCC) THYROID FUNCTION CASCADE Routine 09/02/2024 11:35 AM CLOTH SHRINKER Thyromegaly HM COLONOSCOPY Routine 05/20/2024 2:17 PM CDT HM MAMMOGRAPHY Routine 04/11/2024 12:00 PM CDT from Last 3 Months or Most Recently Relevant to Health Maintenance Results * eGFR (09/02/2024 11:35 AM CLOTH SHRINKER) eGFR 72 >=60 mL/min/1. 73 m2 Comment: [...] reviewed 2021. Blood 09/02/2024 11:3 5 AM CL[facility] SHRINKER 09/02/2024 10:20 PM CLOTH SHRINKER us Chip Kilgore MD LAB BLOOD ORDERABLES Final Result ANNEL [address] Department [place] [address] * Differential, auto (09/02/2024 11:35 AM CLOTH SHRINKER) Neutrophil abs 2.4 1.5 - 6.5 K/cumm Imm gran abs 0.0 0.0 - 0.1 K/cumm [facility] Lymphocyte abs 1.9 0.8 - 3.3 K/cumm [facility] Monocyte abs 0.4 0.2 - 0.8 K/cumm [facility] Eosinophil abs 0.0 0.0 - 0.5 K/cumm [facility] Basophil abs 0.0 0.0 - 0.1 K/cumm [facility] Neutrophil pct 51.2 % [facility] Comment: Interpretive Data Percent cell count reference ranges are not reported, since discordance with absolute values may lead to misinterpretation of CBC data. Current Interpretive Data was last revised on 2018. Imm gran pct 0.2 % [facility] Comment: Interpretive Data Percent cell count reference ranges are not reported, since discordance with absolute values may lead to misinterpretation of CBC data. Current Interpretive Data was last revised on 2018. Lymphocyte pct 39.7 % [facility] Comment: Interpretive Data Percent cell count reference ranges are not reported, since discordance with absolute values may lead to misinterpretation of CBC data. Current Interpretive Data was last revised on 2018. Monocyte pct 7.7 % [facility] Comment: Interpretive Data Percent cell count reference ranges are not reported, since discordance with absolute values may lead to misinterpretation of CBC data. Current Interpretive Data was last revised on 2018. Eosinophil pct 0.8 % [facility] Comment: Interpretive Data Percent cell count reference ranges are not reported, since discordance with absolute values may lead to misinterpretation of CBC data. Current Interpretive Data was last revised on 2018. Basophil pct 0.4 % [facility] Comment: Interpretive Data Percent cell count reference ranges are not reported, since discordance with absolute values may lead to misinterpretation of CBC data. Current Interpretive Data was last revised on 2018. Blood 09/02/2024 11:3 5 AM CLOTH SHRINKER 09/02/2024 10:09 PM CLOTH SHRINKER us Chip Kilgore MD LAB BLOOD ORDERABLES Final Result ANNEL [address] Department [place] [address] * Thyroid Function [place] (09/02/2024 11:35 AM CLOTH SHRINKER) TSH 3.00 0.30 - 4.20 mcIUnit/mL Blood 09/02/2024 11:3 5 AM CLOTH SHRINKER 09/02/2024 10:09 PM CL[facility] SHRINKER Chip Kilgore MD LAB BLOOD ORDERABLES Final Result Performing Organization Address [facility] de Phone Number ANNEL FRIAS [address] Department [place] [address] * (ABNORMAL) CBC with auto differential (09/02/2024 11:35 AM CLOTH SHRINKER) Pathologist [facility] WBC 4.8 3.8 - 9.9 K/cumm Hgb 13.6 11.9 - 15.5 g/dL [facility] Hct 43.8 35.6 - 45.5 % [facility] Plt 245 150 - 400 K/cumm [facility] MPV 10.2 9.1 - 12.3 fL [facility] RBC 4.42 3.90 - 5.20 M/cumm [facility] MCV 99.1(H) 81.3 - 96.4 fL [facility] MCH 30.8 27.1 - 33.3 pg [facility] MCHC 31.1(L) 32.3 - 35.7 g/dL [facility] RDW CV 13.0 11.1 - 14.9 % [facility] RDW SD 47.3 35.7 - 48.1 fL [facility] NRBC abs 0.00 0.00 - 0.01 K/cumm [facility] Blood 09/02/2024 11:3 5 AM CLOTH SHRINKER 09/02/2024 10:09 PM CLOTH SHRINKER Chip Kilgore MD LAB BLOOD ORDERABLES Final Result Performing Organization Address [facility] de Phone Number ANNEL FRIAS [address] Department [place] [address] * Albumin Creatinine Ratio, Urine (09/02/2024 11:35 AM CLOTH SHRINKER) [facility] Albumin Ur <12.0 mg/L Comment: Interpretive Data No reference range established. Current interpretive data was last revised 2019. Creatinine Ur 33.5 mg/dL [facility] Comment: Interpretive Data No reference range established. Current interpretive data was last revised 2019. Albumin Creatinine Ratio, Ur See Comment 1 - 29 ANNEL Comment:Unable to calculate Urine 09/02/2024 11:3 5 AM CLOTH SHRINKER 09/02/2024 10:09 PM CLOTH SHRINKER Chip Kilgore MD LAB URINE ORDERABLES Final Result Performing Organization Address [facility] Co de Phone Number ANNEL [address] Department [place] [address] * (ABNORMAL) Hemoglobin A1c (09/02/2024 11:35 AM CLOTH SHRINKER) Hgb A1C 5.9(H) 4.0 - 5.6 % Estimated Average Glucose 123 mg/dL ANNEL FRIAS Comment: The ADA recommends reporting an estimated Average Glucose (eAG) with all Hemoglobin A1c results using the equation derived from a study of 507 normal and diabetic adults. Minority populations were underrepresented and children were not included. (Diabetes Care 31:3968-3559, 2008). The eAG is not equivalent to a fasting glucose. Blood 09/02/2024 11:3 5 AM CLOTH SHRINKER 09/02/2024 10:09 PM CLOTH SHRINKER Chip Kilgore MD LAB BLOOD ORDERABLES Final Result Performing Organization Address [facility] Co de Phone Number ANNEL FRIAS [address] Department [place] [address] * (ABNORMAL) Lipid panel (09/02/2024 11:35 AM CLOTH SHRINKER) Cholesterol 206(H) 30 - 199 mg/dL Comment: [...] revised on 2024. Non-HDL Cholesterol 142 mg/dL [facility] Comment: Interpretive Data Ages < or = [...] last revised on 2018. Chol/HDL ratio 3 [facility] Blood 09/02/2024 11:3 5 AM CLOTH SHRINKER 09/02/2024 10:09 PM CLOTH SHRINKER Chip Kilgore MD LAB BLOOD ORDERABLES Final Result [facility] [address] Department [place] [address] * Comprehensive metabolic panel (09/02/2024 11:35 AM CLOTH SHRINKER) Sodium 137 135 - 145 mmol/L Potassium, pl 4.6 3.3 - 4.9 mmol/L [facility] Chloride 102 97 - 110 mmol/L [facility] CO2 26 22 - 32 mmol/L [facility] Anion gap 9 2 - 15 mmol/L [facility] BUN 16 6 - 25 mg/dL [facility] Creatinine 0.85 0.60 - 1.10 mg/dL [facility] Glucose 99 70 - 199 mg/dL [facility] Comment: Interpretive Data Fasting glucose >/= 126 [...] [facility] CH Blood 09/02/2024 11:3 5 AM CLOTH SHRINKER 09/02/2024 10:09 PM CLOTH SHRINKER Chip Kilgore MD LAB BLOOD ORDERABLES Final Result [facility] [address] Department [place] [address] * (ABNORMAL) COLONOSCOPY (05/20/2024 2:17 PM CDT) Scribed Colonoscopy Abnormal Historical Provider HEALTH MAINTENANCE Final Result * MAMMOGRAPHY (04/11/2024 12:00 PM CDT) Historical Carolyn PAGE HEALTH MAINTENANCE Final Result from Last 3 Months or Most Recently Relevant to Health Maintenance Insurance T MEDICARE AETNA [facility] Address: [facility] [id number] [place] [phone] AETNA MEDICARE Advance Directives For more information, please contact: [phone] * Full Code (Latest Code Status on File) Date Activated Date Inactivated Comments 10/16/2023 9:48 PM 10/18/2023 5:02 PM Care Teams Vacuum Form Operator Relationship Specialty Start Date End Date Chip Kilgore MD [address] [facility] [address] [place] [address] PCP - General Family Medicine 02/21/24 Ari Patel MD [address] [facility] [address] [place] [address] Consulting Physician Cardiovascular Disease 02/21/24 Alessandro Kay MD [address] [place] [address] Referring Physician Gastroenterology 03/20/24
--- OUTSIDE RECORDS SUMMARY | 2024-11-29 10:46 | XMS_ITS | Continuity of Care Document ---
Author Organization [facility] Address [address] [place] [address] Phone Care Team Providers Care Sheet Writer Name Role Phone Twan Banks Unavailable Unavailable Procedures Procedure Date Post-op Follow-up Visit Post-op Follow-up Visit Post-op Follow-up Visit Remove Cataract, Insert Lens Post-op Follow-up Visit Post-op Follow-up Visit Echo Exam Of Eye-Professional Post-op Follow-up Visit Remove Cataract, Insert Lens Office/outpatient Visit, Est Echo Exam Of Eye Office/outpatient Visit, Est Refraction BF Plastic Sphcyl Gautier To +/-4d .12-2d Tax - Medical Eye Exam & Treatment BF Plastic Sphcyl Gautier To +/-4d .12-2d Frames Deluxe Tax - Medical Eye Exam & Treatment Refraction Office/outpatient Visit, Est Office/outpatient Visit, Est Advance Directives Directive Yes / No Effective Date File Name No Information Encounters Encounter Description Practice Location Reason(s) For Visit Diagnoses Date Provider Providers Copied on [facility] [address], [place], [place], [id number], [place] tel:[phone] [facility] No Information Apr-2 7-201 0 Krishnasamy Twan. [address] [facility] [address], [place], [address], [place]. tel:[phone] [facility], [address], [place], [place], [id number], [place] tel:[phone] [facility] No Information Mar-3 0-201 0 Krishnasamy Twan. [address], [place], [address], [place]. tel:[phone] [facility], [address], [place], [place], [id number], [place] tel:[phone] [facility] No Information Mar-2 6-201 0 Krishnasamy Twan. [address] [facility] [address], [place], [place], [facility], [place]. tel:[phone] [facility], [address], [place], [place], [id number], [place] tel:[phone] [facility] No Information Mar-2 5-201 0 Krishnasamy Twan. [address] [facility] [address], [place], [address], [place]. tel:[phone] [facility], [address], [place], [place], [id number], [place] tel:[phone] [facility] No Information Mar-0 9-201 0 Krishnasamy Twan. [address] [facility] [address], [address], [place]. tel:[phone] [facility], [address], [place], [place], [address], [place] tel:[phone] [facility] No Information Dec-1 5-200 9 Krishnasamy Twan. [address] [facility] [address], [address], [place]. tel:[phone] Referring Provider: Twan martínez, [facility] [address] [address], [place], [address]. tel:[phone] [facility], [address], [place], [place], [id number], [place] tel:[phone] [facility] No Information Dec-0 8-200 9 Krishnasamy Twan. [facility] Corporate Center [facility] [address], [place], [facility], [place]. tel:[phone] [facility], [address], [place], [place], [id number], [place] tel:[phone] [facility] No Information Dec-0 7-200 9 Krishnasamy Twan. [facility] Corporate [address], [facility], [place]. tel:[phone] Office/outpat ient Visit, [facility] Eye [facility], [address] [place] [address] [address], [place], [place], [address], [place] tel:[phone] [facility] No Information Sep-1 5-200 9 Krishnasamy Twan. [facility] Corporate [address], [facility], [place]. tel:[phone] Referring Provider: Twan Damian tanya, [facility] Corporate Center [facility] [address], [place], [address]. tel:[phone] Office/outpat ient Visit, [facility], [address] [place] [address] [address], [place], [place], [address], [place] tel:[phone] [facility] No Information Mar-2 4-200 9 Krishnasamy Twan. [facility] Corporate [address], [address], [place]. tel:[phone] Referring Provider: Randolph Ortega OD A, [address] [place], [place] [address]ate Center [address], [place], [address]. tel:[phone] [facility], [address], [place], [place], [address], [place] tel:[phone] [facility] No Information Mar-2 4-200 9 [facility]. [address] [facility], [address], [place], [place], [address], [place]. tel:[phone] Referring Provider: Twan martínez, [address] [place], [place] [address]ate [address], [place], [address]. tel:[phone] sulting Provider: Yovani Hinojosa, [address] [place], [place] [address]ate [facility], [place], [address]. tel:[phone] [facility], [address], [place], [place], [id number], [place] tel:[phone] [facility] No Information Mar-1 8-200 9 Ortega OD Randolph. [address] [place], [place] [address] , [address], [place], [facility], [place]. tel:[phone] [facility], [address] [place] [address] [address], [place], [place], [id number], [place] tel:[phone] [facility] No Information Feb-0 6-200 8 [employer] [facility]. [address] [facility], [address], [place], [place], [id number], [place]. tel:[phone] Referring Provider: Randolph Ortega OD A, [address] [place], [place] [address]ate Center [address], [place], [address]. tel:[phone] sulting Provider: Yovani Hinojosa, [address] [place], [place] [address]ate Ctr, [place], [address]. tel:[phone] [facility], [address], [place], [place], [id number], tel:[phone] [facility] No Information b-0 6-200 8 Ortega OD Randolph. [address] [facility] , [address], [place], [facility], . tel:[phone] Office/outpat ient Visit, [facility], [address] [facility] [address], [place], [place], [id number], [place] tel:[phone] [facility] No Information b-0 2-200 8 Ortega OD Randolph. [address] [facility] , [address], [place], [facility], [place]. tel:[phone] Office/outpat ient Visit, [facility], [address], [place], [place], [address], tel:[phone] [facility] No Information 0-200 8 Ortega OD Randolph. [facility] , [address], [place], [facility], [place]. tel:[phone] Referring Provider: Patricia Gaytan MD, [address], [place], [address]. tel:[phone] Family History Family Member Type Diagnosis Age At Onset No Information Payers Payer name Insurance type Covered alliance party ID Authoriza tion(s) No Information Social History Type Description Quantity Date Captured Comments Sex Female Smoking Status No Information Chief Complaint And Reason For Visit No Information Reason For Referral Reason For Referral No Information History Of Present Illness Encounter Date Complaint History Of Prese nt Illness No Information Functional Status Date Functional Assessmen t No Information Instructions Date Instruction Additional Infor mation No Information Assessments Type Assessment Date No Information Patient Care Teams Name Effective Dates (start - stop) Status Members No Information
--- OUTSIDE RECORDS SUMMARY | 2024-11-29 10:46 | XMS_ITS | CONTINUITY OF CARE DOCUMENT ---
Author Name sage torrienomi Address Unknown Organization [facility] Address [address] [place] [address] Phone [phone] Care Team Providers Care Photographic Artist Name Role Phone Deniz PAGE, Dev Unavailable [phone] CARLO SHAFFER MD Unavailable CARLO SHAFFER MD Unavailable PROBLEMS Condition Status Date Provider Notes Cardiovascular screening active Dev morales MD Palpitations active Dev Guaman MD Chest pain active Dev Guaman MD Hyperlipidemia active Dev Guaman MD Diabetes mellitus active Dev Guaman MD Hiatal hernia active Dev Guaman MD Aortic regurgitation, moderate active Dev Guaman MD ENCOUNTERS Date Type Provider Location Encounter Diag nosis - In-person encounter Office Visit Dev Guaman MD [facility] Aortic regurgitation, moderate - In-person encounter Office Visit Dev Guaman MD [facility] Cardiovascular screeningPalpitationsChest painHyperlipidemiaDiabetes mellitusHiatal hernia VITAL SIGNS Date Observation Value Provider Body Mass Index (Ratio) 25.97 kg/m2 Lisa Guaman MD blood pressure, cuff size regular Cy ariella Briscoe blood pressure, diastolic 80 mm[Hg] Bhaskar Briscoe blood pressure, systolic 124 mm[Hg] Jennifer Briscoe oxygen saturation, oximetry 96 % Tiffani Briscoe respiratory rate E&M 16 /min Tiffani Briscoe pulse rate 85 /min Tiffani lake weight E&M 142 [lb_av] Tiffani lake height E&M 62 [in_i] Tiffani lake weight E&M 141 [lb_av] Deb Bermeo Body Mass Index (Ratio) 25.79 kg/m2 Lisa Guaman MD blood pressure, cuff size regular Cr hunter Robbins blood pressure, diastolic 90 mm[Hg] Cr hunter Robbins blood pressure, systolic 150 mm[Hg] Cry stal Rosendo oxygen saturation, oximetry 95 % Janeth Robbins respiratory rate E&M 17 /min Janeth Robbins pulse rate 91 /min Janeth muller blood pressure, resting Yes Jayshree clara Robbins weight E&M 141 [lb_av] Janeth muller height E&M 62 [in_i] Janeth muller ALLERGIES Allergy Name Onset Date Reaction Criticality Status SPIRONOLACTONE High Criticality acti ve PAROXETINE High Criticality active DARVOCET High Criticality active HISTORY OF MEDICATION USE Medication Status Instructions Dates Provider Indications Com ments ESTRADIOL TABLET active take 1 tab daily 3 Tiffani Briscoe VENLAFAXINE HCL 37.5 MG ORAL TABLET completed take one tablet by mouth once daily - 3 Tiffani Briscoe BIOTIN 5000 5 MG ORAL CAPSULE active take one capsule by mouth once daily Janeth Robbins LISINOPRIL 5 MG ORAL TABLET active take one tablet by mouth once daily Janeth Robbins OMEPRAZOLE 40 MG ORAL CAPSULE DELAYED RELEASE active take one tablet by mouth once daily Janeth Robbins CRESTOR 10 MG ORAL TABLET active take one tablet by mouth once daily Janeth Robbins METFORMIN HCL 850 MG ORAL TABLET active take one tablet by mouth once daily Janeth Robbins LEVOTHYROXINE SODIUM TABLET active take one tablet by mouth once daily Janeth Robbins ADULT ASPIRIN REGIMEN 81 MG ORAL TABLET DELAYED RELEASE active take one tablet by mouth once daily Janeth Robbins SOCIAL HISTORY Date Observation Value Provider social history E&M S moking History: Skinny flower is a former smoker. Dev Guaman MD social history reviewed E&M revi ewed - no changes required Dev Guaman MD smoking status Former smoker Tiffani dewey social history E&M S moking History: Skinny flower is a former smoker. Dev Guaman MD social history reviewed E&M revi ewed - no changes required Dev Guaman MD smoking status Former smoker Dev Guaman MD FAMILY HISTORY Family Member Condition Father Family History of Marzena ng Cancer: Mother Family History of Ar thritis: INSURANCE PROVIDERS Payer name Policy type / Coverage type [place] red republican ID AETNA MEDICARE Commercial insurance ITao M [id number] ADVANCE DIRECTIVES Name Date POWER OF PREFORMS LAMINATOR LIVING WILL ON FILE TREATMENT PLAN Date Name Performer Cardiology follow up :Per echo 06/12/19. Will repeat echo at one year follow up Dev Guaman MD Cardiology follow up :Per PCP Us jeffrey Guaman MD Cardiology follow up : H er updated medication list for this problem includes: Crestor 10 Mg Oral Tablet (Rosuvastatin calcium) ..... Take one tablet by mouth once daily Dev Guaman MD Cardiology follow up :Echo and stress nuclear were normal aside from moderate AR on echo. Tele monitor showed no extra beats. Dev Guaman MD Cardiology:On statin Dev morales MD Cardiology:Per PCP Dev Guaman MD Cardiology:Will orde r a two week tele monitor. They come once a week and so there is more chance of catching them. Dev Guaman MD Cardiology:This is a typical but she does have risk factors and I think she should undergo a stress test. Will do a routine stress test. Will also check an echo. Dev Guaman MD Date Name Complete Echo Mobile Cardiac Tele Stress Routine Complete Echo HISTORY OF PROCEDURES Procedure Date Procedure Name Provider Procedure Notes S tatus Cardiolite, 2 units Dev Guaman MD completed SPECT Images Dev Guaman MD complet ed Stress EKG Dev Guaman MD completed Stress EKG Stacy Mcdonnell MD completed Event Monitor Stacy Mcdonnell MD comple dionte EKG Dev Guaman MD completed
--- NOTE | 2024-11-29 10:52 | ED_ITS ---
HPI - General Adult General Chief complaint: Chest Pain Stated complaint: chest pain Time Seen by Provider: 11/29/24 10:52 Source: patient History of Present Illness HPI narrative: 73 years old white female came to the ED by private car complaining of sudden onset of chest and epigastric pain that radiated into her neck, right jaw lasted for 15 minutes while standing talking to her daughter. Patient lost her 5 days ago. Currently patient is asymptomatic except crying, grieving about her . History of diabetes, forgetfulness, goiter, hyperlipidemia, hypertension, hypothyroidism, IBS, anxiety, traumatic compression fracture of 11th thoracic vertebra. History of hysterectomy cholecystectomy appendectomy. Currently patient is asymptomatic Related Data Home Medications ?Medication ?Instructions ?Recorded ?Confirmed ?Last Taken ?Type aspirin 81 mg chewable tablet 81 mg PO HS 11/19/19 05/20/24 05/18/24 History empagliflozin 10 mg tablet 10 mg PO DAILY 04/16/24 05/20/24 05/19/24 History (Jardiance) pioglitazone 15 mg tablet 15 mg PO DAILY 04/16/24 05/20/24 05/19/24 History Allergies Allergy/AdvReac Type Severity Reaction Status Date / Time propoxyphene Allergy Severe TONGUE Verified 05/20/24 07:35 SWELLING AND STOPPED BREATHING Review of Systems 2 Review of Systems: All systems reviewed & are unremarkable except as noted in HPI and below PMFSH Past Medical History Medical History (Updated 11/29/24 @ 15:05 by Man Gao MD) Gastroesophageal reflux disease Gastric polyp Peptic ulcer Aortic regurgitation Hiatal hernia Rolle esophagus Adenomatous colon polyp Type 2 diabetes mellitus Hyperlipidemia Hypertension Compression fracture of T12 vertebra Memory deficit Traumatic compression fracture of eleventh thoracic vertebra Irritable bowel syndrome with diarrhea Hypothyroidism Goiter Cataracts, both eyes Arthritis Surgical History Surgical History (Updated 11/29/24 @ 14:06 by Princess Ivey PA-C) History of bilateral breast biopsy benign History of bilateral cataract extraction History of cardiac catheterization History of hysterectomy (1999) History of appendectomy (1979) History of tonsillectomy (1974) History of cataract surgery (2003) History of cholecystectomy (1989) Family History Family History Father , 65 Emphysema, unspecified Mother , 43 Heart attack Social History Social History Social History: Surrogate medical decision maker: Code status: Full code. Smoking packs per day: 1 Smoking cigarettes per day: 20.0 Years smoked: 10 Smoking pack-years: 10.00 Smoking status: Former smoker Tobacco type: cigarettes Second hand tobacco smoke exposure: No Additional smoking assessment comments: STATES QUIT 1974 Alcohol intake: never Substance use: never Substance use type: does not use Do You Feel Safe in your Home?: Yes Living arrangements: with family Additional living arrangements comments: as of November 2024. Three children. 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 Spiritual care concerns: No Exam 2 Narrative: General appearance: Well-developed, well-nourished, depressed, crying and grieving Skin: Normal color Head: Normocephalic, nontraumatic Eyes: Clear conjunctiva ENT: Oropharynx normal, ears normal, nose normal Neck: Supple, nontender Chest and respiratory: Airway patent, no respiratory distress, no accessory muscle use Heart: Regular rate/rhythm Abdomen: Soft, nontender, no organomegaly, quiet bowel sounds Musculoskeletal: Normal range of motion, nontender back Neurologic: Alert and oriented ?3, NURSE WOUND CARE is normal as tested, no gross motor deficit Course Vital Signs Vital signs: Vital Signs Temperature 36.6 C 11/29/24 10:44 Pulse Rate 77 11/29/24 10:44 Respiratory Rate 16 11/29/24 10:44 Blood Pressure 164/62 H 11/29/24 10:44 Pulse Oximetry 99 11/29/24 10:44 Oxygen Delivery Room Air 11/29/24 10:44 Temperature 36.6 C 11/29/24 10:44 Pulse Rate 78 11/29/24 12:01 Respiratory Rate 18 11/29/24 12:01 Blood Pressure 133/60 11/29/24 12:01 Pulse Oximetry 98 11/29/24 12:01 Oxygen Delivery Room Air 11/29/24 11:01 Medical Decision Making [facility] Narrative Medical decision making narrative: Patient presents with sudden retrosternal and epigastric pain Vital signs are stable Physical examination showing a depressed, crying patient's about her hospital Differential diagnosis include anxiety like symptoms, coronary artery disease, pulmonary embolism, gastritis, esophagitis, esophageal spasm, less likely pancreatitis Blood workup today includes CBC, CMP, D-dimer, troponin, BnP showed NO ACUTE ABNORMALITIES Chest x-ray showed NO ACUTE ABNORMALITY EKG showed NORMAL SINUS RHYTHM DIAGNOSIS CHEST PAIN, GRIEF REACTION, ADMIT TO HOSPITALIST FOR FURTHER EVALUATION Differential Diagnosis Differential Diagnosis: As above Vital Signs Vital Signs: Vital Signs Temperature 36.6 C 11/29/24 10:44 Pulse Rate 77 11/29/24 10:44 Respiratory Rate 16 11/29/24 10:44 Blood Pressure 164/62 H 11/29/24 10:44 Pulse Oximetry 99 11/29/24 10:44 Oxygen Delivery Room Air 11/29/24 10:44 Temperature 36.6 C 11/29/24 10:44 Pulse Rate 78 11/29/24 12:01 Respiratory Rate 18 11/29/24 12:01 Blood Pressure 133/60 11/29/24 12:01 Pulse Oximetry 98 11/29/24 12:01 Oxygen Delivery Room Air 11/29/24 11:01 Lab Data 11/29/24 10:59 11/29/24 10:59 Labs: Lab Results 11/29/24 Range/Units 10:59 WBC 5.2 (4.5-10.0) K/mm3 RBC 4.31 (4.2-5.4) M/mm3 Hgb 13.3 (12.0-15.0) g/dL Hct 40.5 (37.0-47.0) % MCV 94.0 (80-100) fl MCH 30.9 (26-34) pg MCHC 32.8 (32-36) g/dl RDW 12.0 (11.5-14.5) % Plt Count 257 (150-375) k/mm3 MPV 9.1 (7.4-10.4) fl Immature Gran % (Auto) 0.6 H (0-0.5) % Neut % (Auto) 55.8 (45.5-73.1) % Lymph % (Auto) 34.0 (18.3-44.2) % Hayes % (Auto) 6.9 (2.6-8.5) % Eos % (Auto) 2.3 (0-4.4) % Baso % (Auto) 0.4 (0.2-1.2) % Lymph # (Auto) 1.78 (0.9-3.2) K/mm3 Hayes # (Auto) 0.4 (0.1-0.6) K/mm3 Eos # (Auto) 0.1 (0-0.3) K/mm3 Baso # (Auto) 0.0 (0.0-0.1) K/mm3 Abs Immat Gran (auto) 0.03 (0.00-0.031) K/mm3 Absolute Neuts (auto) 2.9 (1.3-6.7) K/mm3 Absolute Nucleated RBC 0.000 (0.0-0.012) K/mm3 Nucleated RBC % 0.0 (0.0-0.2) % D-Dimer 0.25 (<0.48) ug/mL Sodium 138 (137-145) mmol/L Potassium 4.3 (3.4-5.0) mmol/L Chloride 102 (98-107) mmol/L Carbon Dioxide 27 (22-30) mmol/L Anion Gap 9 (4-12) mmol/L BUN 18 H (7-17) mg/dL Creatinine 0.70 (0.7-1.0) mg/dL Estim Creat Clear Calc 48 ml/min Estimated GFR > 60 (59 - ) Glucose 110 (65-110) mg/dL Calcium 9.6 (8.4-10.2) mg/dL Total Bilirubin 0.6 (0.2-1.3) mg/dL AST 32 (14-36) U/L ALT 17 (6-35) U/L Alkaline Phosphatase 82 (38-126) U/L Troponin I < 0.012 (0.000-0.034) ng/mL NT-Pro-B Natriuret Pep 72 (19.9-100) pg/mL Total Protein 7.0 (6.3-8.2) g/dL Albumin 4.1 (3.5-5.1) g/dL Lipase 128 (23-300) U/L Imaging Data Radiologist's impression: Impressions Chest X-Ray 11/29/24 11:41 IMPRESSION: 1. Emphysema. No acute cardiopulmonary disease. 2. Moderate-sized hiatal hernia. ECG Data EKG #1: Attestation: I personally reviewed and interpreted this ECG as follows: ECG completion date: 11/29/24 Interpretation: NORMAL SINUS RHYTHM AT 82 BEATS PER MINUTE, NORMAL EKG, NO PREVIOUS EKG AVAILABLE FOR COMPARISON Discharge Plan Discharge Clinical Impression: Chest pain, Abnormal grief reaction Patient Disposition: Still a Patient Condition: Stable Additional Instructions: ADMIT TO HOSPITALIST Patient Language: Colombian Prescriptions: No Action aspirin 81 mg tablet,chewable 81 mg PO HS pantoprazole 40 mg tablet,delayed release (DR/EC) 40 mg PO BID Qty: 180 1RF ferrous sulfate 325 mg (65 mg iron) tablet 325 mg PO DAILY Qty: 90 1RF pioglitazone 15 mg tablet 15 mg PO DAILY Jardiance 10 mg tablet 10 mg PO DAILY (DME) blood-glucose meter [SmarTots Ultra2 Meter] Kit See Rx Instructions .ROUTE .MEDSUPPLY Qty: 1 1RF Rx Instructions: test once per week (DME) lancets [KaloBios PharmaceuticalsTouch Delica Lancets] 33 gauge misc See Rx Instructions .ROUTE .MEDSUPPLY Qty: 100 3RF Rx Instructions: use to test once daily (DME) blood sugar diagnostic Strip See Rx Instructions .ROUTE .MEDSUPPLY Qty: 100 3RF Rx Instructions: use to test once daily rosuvastatin 10 mg tablet See Rx Instructions .ROUTE .COMPLEX Qty: 90 1RF Dose Instruction: TAKE 1 TABLET AT BEDTIME Rx Instructions: TAKE 1 TABLET AT BEDTIME lisinopril 5 mg tablet 5 mg PO QAM Qty: 90 3RF levothyroxine 50 mcg tablet See Rx Instructions .ROUTE .COMPLEX Qty: 90 1RF Dose Instruction: TAKE 1 TABLET DAILY Rx Instructions: TAKE 1 TABLET DAILY Follow-up/Referrals: Jame,Chip Renee MD [Primary Care Provider] - Quality HEART score for chest pain patients History: slightly suspicious ECG: normal Age: > or = to 65 years Risk factors: > or = to 3 risk factors of atherosclerotic disease Troponin: < or = to 1x normal limit Heart score: 4
--- NOTE | 2024-11-29 10:53 | ECG_ITS ---
Test Date: 2024-11-29 10:57:19 Measurements Intervals [place] Rate: 82 P: 52 NC: 172 QRS: 29 QRSD: 100 T: 41 QT: 363 QTc: 425 Interpretive Statements SINUS RHYTHM NORMAL ECG No previous ECG available for comparison Electronically Signed On 11-29-2024 12:29:19 MANAGER COMPENSATION by Luis Matute M.D.
[2024-11-29 11:09] LABS: Basophils Percent Auto 0.4 % (0.2-1.2); Eosinophils Absolute Auto 0.1 K/mm3 (0-0.3); Eosinophils Percent Auto 2.3 % (0-4.4); Hematocrit 40.5 % (37.0-47.0); Hemoglobin 13.3 g/dL (12.0-15.0); Immature Granulocyte Absolute 0.03 K/mm3 (0.00-0.031); Immature Granulocyte Percent A 0.6 % (0-0.5); Lymphocytes Absolute Auto 1.78 K/mm3 (0.9-3.2); Mean Corpuscular HGB Conc 32.8 g/dl (32-36); Mean Corpuscular Hemoglobin 30.9 pg (26-34); Mean Platelet Volume 9.1 fl (7.4-10.4); Monocytes Absolute Auto 0.4 K/mm3 (0.1-0.6); Monocytes Percent Auto 6.9 % (2.6-8.5); Neutrophils Absolute Auto 2.9 K/mm3 (1.3-6.7); Neutrophils Percent Auto 55.8 % (45.5-73.1); Platelet Count Result 257 k/mm3 (150-375); Red Blood Count 4.31 M/mm3 (4.2-5.4); White Blood Count 5.2 K/mm3 (4.5-10.0)
[2024-11-29] MEDS: ASPIRIN 81 MG CHEWABLE TABLET 324 MG PO (11:20)
--- OUTSIDE RECORDS SUMMARY | 2024-11-29 11:22 | XMS_ITS | Patient Health Summary ---
Author Organization [facility] Address [address] [place] [address] Care Team Providers Care Natural Resource Specialist Name Role Phone Patricia Gaytan MD Primary Care Provider [phone] Note from [facility],non-owned Affiliates and Associated Physician Practices is amultiple site organization consisting of ambulatory clinics and hospital sitesin [place], [place], [place] and [place]. This disclosure is being madepursuant to the Care Everywhere program and may not contain all information available regarding this patient. Last updated 18.[facility] Immunizations * INFLUENZA VACCINE, HIGH-DOSE, QUADR. (FLUZONE HIGH-DOSE QUADRIVALENT; 65Y+), 0.7 ML (HD-IIV4)(Given 07/05/2020) Social History Tobacco Use Types Packs/Day Years Used Date Smoking Tobacco: Never Assessed Sex and Gender Information Value Date Recorded Sex Assigned at Not on file Gender Identity Not on file Sexual Orientation Not on file Care Teams Natural Resource Specialist Relationship Specialty Start Date End Date Patricia Gaytan MD [address] [place] [address] [address] [place] [address] PCP - General 07/28/21
--- OUTSIDE RECORDS SUMMARY | 2024-11-29 11:23 | XMS_ITS | Continuity of Care Document ---
Author Organization [facility] Address [address] [place] [address] Phone Care Team Providers Care Mountain Services Manager Name Role Phone Twan Banks Unavailable Unavailable Procedures Procedure Date Post-op Follow-up Visit Post-op Follow-up Visit Post-op Follow-up Visit Remove Cataract, Insert Lens Post-op Follow-up Visit Post-op Follow-up Visit Echo Exam Of Eye-Professional Post-op Follow-up Visit Remove Cataract, Insert Lens Office/outpatient Visit, Est Echo Exam Of Eye Office/outpatient Visit, Est Refraction BF Plastic Sphcyl [place] To +/-4d .12-2d Tax - Medical Eye Exam & Treatment BF Plastic Sphcyl [place] To +/-4d .12-2d Frames Deluxe Tax - Medical Eye Exam & Treatment Refraction Office/outpatient Visit, Est Office/outpatient Visit, Est Advance Directives Directive Yes / No Effective Date File Name No Information Encounters Encounter Description Practice Location Reason(s) For Visit Diagnoses Date Provider Providers [facility] [address], [place], [place], [id number], [place] tel:[phone] [facility] No Information Apr-2 7-201 0 Krishnasamy Twan. [address] [facility] [address], [place], [address], [place]. tel:[phone] [facility], [address], [place], [place], [id number], [place] tel:[phone] [facility] No Information Mar-3 0-201 0 Krishnasamy Twan. [address], [place], [address], [place]. tel:[phone] [facility], [address], [place], [place], [address], [place] tel:[phone] [facility] No Information Mar-2 6-201 0 Krishnasamy Twan. [address] [facility] [address], [place], [place], [facility] [place], [place]. tel:[phone] [facility], [address], [place], [place], [id number], [place] tel:[phone] [facility] No Information Mar-2 5-201 0 Krishnasamy Twan. [address] [facility] [address], [place], [address], [place]. tel:[phone] [facility], [address], [place], [place], [address], [place] tel:[phone] [facility] No Information Mar-0 9-201 0 Krishnasamy Twan. [address] [facility] [address], [place], [address], [place]. tel:[phone] [facility], [address], [place], [place], [address], [place] tel:[phone] [facility] No Information Dec-1 5-200 9 Krishnasamy Twan. [address] [facility] [address], [place], [address], [place]. tel:[phone] Referring Provider: Twan martínez, [facility] [address] [address], [place], [address]. tel:[phone] [facility], [address], [place], [place], [address], [place] tel:[phone] [facility] No Information Dec-0 8-200 9 Krishnasamy Twan. [facility] [address], [place], [facility] [place], [place]. tel:[phone] [facility], [address], [place], [place], [address], [place] tel:[phone] [facility] No Information Dec-0 7-200 9 Krishnasamy Twan. [facility] [address], [facility] [place] [place], [place]. tel:[phone] Office/outpat ient Visit, [facility], [address] [place] [address] [address], [place], [place], [id number], [place] tel:[phone] [facility] No Information Sep-1 5-200 9 Krishnasamy Twan. [facility] [address], [facility] [place] [place], [place]. tel:[phone] Referring Provider: Twan Damian tanya, [facility] [address], [place], [address]. tel:[phone] Office/outpat ient Visit, [facility], [address] [place] [address] [address], [place], [place], [id number], [place] tel:[phone] [facility] No Information Mar-2 4-200 9 Krishnasamy Tawn. [facility] [address], [address], [place]. tel:[phone] Referring Provider: Randolph Ortega OD A, [address] [place], [place] [address]ate Center [address], [place], [address]. tel:[phone] [facility], [address], [place], [place], [address], [place] tel:[phone] [facility] [place] No Information Mar-2 4-200 9 [facility]. [address], [address], [place], [place], [address], [place]. tel:[phone] Referring Provider: Twan martínez, [address] [place], [place] [address]ate [address], [place], [address]. tel:[phone] sulting Provider: Yovani Hinojosa, [address] [place], [place] [address]ate [facility], [place], [address]. tel:[phone] [facility], [address], [place], [place], [address], [place] tel:[phone] [facility] No Information Mar-1 8-200 9 Ortega OD Randolph. [address] [place], [place] [address] , [address], [place], [place], [facility], [place]. tel:[phone] [facility], [address] [place] [address] [address], [place], [place], [id number], [place] tel:[phone] [facility] [place] No Information Feb-0 6-200 8 [facility]. [address], [address], [place], [place], [address], [place]. tel:[phone] Referring Provider: Randolph Ortega OD A, [address] [place], [place] [address]ate Center [address], [place], [address]. tel:[phone] sulting Provider: Yovani Hinojosa, [address] [place], [place] [address]ate Ctr, [place], [address]. tel:[phone] [facility], [address], [place], [place], [address], tel:[phone] [facility] [place] No Information b-0 6-200 8 Ortega OD Randolph. [address] [facility] , [address], [place], [place], [facility] [place], . tel:[phone] Office/outpat ient Visit, [facility], [address], [place], [place], [address], [place] tel:[phone] [facility] No Information b-0 2-200 8 Ortega OD Randolph. [address] [facility] [address] , [address], [place], [place], [facility] [place], [place]. tel:[phone] Office/outpat ient Visit, [facility], [address], [place], [place], [address], tel:[phone] [facility] [place] No Information 0-200 8 Ortega OD Randolph. [facility] , [address], [place], [place], [facility] [place], [place]. tel:[phone] Referring Provider: Patricia Gaytan MD, [address], [place], [address]. tel:[phone] Family History Family Member Type Diagnosis Age At Onset No Information Payers Payer name Insurance type Covered green party ID Authoriza tion(s) No Information Social [...]
--- OUTSIDE RECORDS SUMMARY | 2024-11-29 11:23 | XMS_ITS | Referral Summary ---
Author Organization [facility] [place] [address] Address [address] [place] [address] Care Team Providers Care Project Planner Name Role Phone Chip Kilgore MD Primary Care Provider [phone] Ari Patel MD Unavailable [phone] Alessandro Kay MD Unavailable [phone] Encounters Date Type Department Care Team Description 11/20/2024 9:00 PM DISEASE AND INSECT CONTROL BOSS Telemedicine [address] [address] Feli Trejo NP Flu-like symptoms (Primary Dx) 11/20/2024 Nurse Triage [facility] Primary Care at [address] [address] Chip Kilgore MD 11/20/2024 Telephone [facility] Primary Care at [address] [address] Chip Kilgore MD Symptom Based Call 09/04/2024 Telephone [facility] Primary Care at [address] [address] Chip Kilgore MD Test Results (labs) 09/02/2024 9:46 AM DISEASE AND INSECT CONTROL BOSS - 09/02/2024 11:59 PM DISEASE AND INSECT CONTROL BOSS Hospital Encounter [address] [address] Thyromegaly; Hyperlipidemia associated with type 2 diabetes mellitus (HCC); Hiatal hernia; Hyperlipidemia associated with type 2 diabetes mellitus (HCC) Discharge Disposition: Discharge to home or self care 09/02/2024 11:45 AM DISEASE AND INSECT CONTROL BOSS Lab [facility] Outpatient Lab at [address] [id number] Encounter for Medicare annual wellness exam (Primary Dx); Establishing care with new doctor, encounter for 09/02/2024 10:30 AM DISEASE AND INSECT CONTROL BOSS Office Visit [facility] Primary Care at [address] [address] Chip Kilgore MD Encounter for [...] 1 tablet (50 mcg total) by mouth 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 Active lisinopriL (PRINIVIL,ZESTR [place]) 5 [...] complication, without long-term current use of insulin ([facility]) (HCC),Hyperlipi demia associated with type 2 diabetes [...] 11/2023 Assessment & Plan (09/02/2024 10:52 AM DISEASE AND INSECT CONTROL BOSS): A(n) yearly Medicare Annual Wellness Visit has [...] - 1984 Tobacco Cessation:Counseling Given: Not Answered [facility] OOTUities Answer Date Recorded In the past 12 months has e [employer] gas, oil, or water [employer] threatened to shut off services in your [...] often do you attend chur ch or christianity services? More than 4 times per year 10/19/2023 Do you belong to any clubs o r organizations such as religion groups, unions, fraternal or athletic groups, or [...] place to sleep or slept in a senior care (including now)? No 10/19/2023 Personal Safety Answer Date Recorded Have you ever been in or are you currently in a harmful physical or emotional relationship or is someone making you feel afraid or unsafe? Denies 10/14/2023 Comments No Sex and Gender Information Value Date Recorded Sex Assigned at Not on file Legal Sex Female 12:12 AM DISEASE AND INSECT CONTROL BOSS Gender Identity Not on file Sexual Orientation Not on file Last Filed Vital Signs Vital Sign Reading Time Taken Comments Blood Pressure 132/80 09/02/2024 10:41 AM DISEASE AND INSECT CONTROL BOSS Pulse 74 09/02/2024 10:41 AM DISEASE AND INSECT CONTROL BOSS Temperature 35.9 C (96.7 F) 09/02/2024 10:41 AM DISEASE AND INSECT CONTROL BOSS Respiratory Rate 16 09/02/2024 10:41 AM DISEASE AND INSECT CONTROL BOSS Oxygen Saturation 98% 09/02/2024 10:41 AM DISEASE AND INSECT CONTROL BOSS Inhaled Oxygen Concentration - - Weight 60.8 kg (134 lb) 09/02/2024 10:41 AM DISEASE AND INSECT CONTROL BOSS Height 157.5 cm (5' 2 ) 09/02/2024 10:41 AM DISEASE AND INSECT CONTROL BOSS Body Mass Index 24.51 09/02/2024 10:41 AM DISEASE AND INSECT CONTROL BOSS Plan of Treatment Not on file Procedures Procedure Name Priority Date/Time Associated Diagnosis Comments EGFR Routine 09/02/2024 11:35 AM DISEASE AND INSECT CONTROL BOSS Hyperlipidemia associated with type 2 diabetes mellitus (HCC) DIFFERENTIAL AUTO Routine 09/02/2024 11: 35 AM DISEASE AND INSECT CONTROL BOSS Hyperlipidemia associated with type 2 diabetes mellitus (HCC) Hiatal hernia ALBUMIN CREATININE RATIO, URINE Routine 09/02/2024 11:35 AM DISEASE AND INSECT CONTROL BOSS Hyperlipidemia associated with type 2 diabetes mellitus (HCC) CBC WITH AUTO DIFFERENTIAL Routine 09/02/2024 11:35 AM DISEASE AND INSECT CONTROL BOSS Hyperlipidemia associated with type 2 diabetes mellitus (HCC) Hiatal hernia COMPREHENSIVE METABOLIC PANEL Routine 09/02/2024 11:35 AM DISEASE AND INSECT CONTROL BOSS Hyperlipidemia associated with type 2 diabetes mellitus (HCC) HEMOGLOBIN A1C Routine 09/02/2024 11:35 AM DISEASE AND INSECT CONTROL BOSS Hyperlipidemia associated with type 2 diabetes mellitus (HCC) LIPID PANEL Routine 09/02/2024 11:35 AM DISEASE AND INSECT CONTROL BOSS Hyperlipidemia associated with type 2 diabetes mellitus (HCC) THYROID FUNCTION CASCADE Routine 09/02/2024 11:35 AM DISEASE AND INSECT CONTROL BOSS Thyromegaly HM COLONOSCOPY Routine 05/20/2024 2:17 PM CDT HM MAMMOGRAPHY Routine 04/11/2024 12:00 PM CDT from Last 3 Months or Most Recently Relevant to Health Maintenance Results * eGFR (09/02/2024 11:35 AM DISEASE AND INSECT CONTROL BOSS) eGFR 72 >=60 mL/min/1. 73 m2 Comment: [...] reviewed 2021. Blood 09/02/2024 11:3 5 AM DISEASE AND INSECT CONTROL BOSS 09/02/2024 10:20 PM DISEASE AND INSECT CONTROL BOSS us Chip Kilgore MD LAB BLOOD ORDERABLES Final Result [facility] [address] Department [place] [address] * Differential, auto (09/02/2024 11:35 AM DISEASE AND INSECT CONTROL BOSS) Neutrophil abs 2.4 1.5 - 6.5 K/cumm Imm gran abs 0.0 0.0 - 0.1 K/cumm [facility] Lymphocyte abs 1.9 0.8 - 3.3 K/cumm [facility] Monocyte abs 0.4 0.2 - 0.8 K/cumm [facility] Eosinophil abs 0.0 0.0 - 0.5 K/cumm [facility] Basophil abs 0.0 0.0 - 0.1 K/cumm [facility] Neutrophil pct 51.2 % [facility] Comment: Interpretive Data Percent cell count reference ranges are not reported, since discordance with absolute values may lead to misinterpretation of CBC data. Current Interpretive Data was last revised on 2018. Imm gran pct 0.2 % [facility] Comment: Interpretive Data Percent cell count reference ranges are not reported, since discordance with absolute values may lead to misinterpretation of CBC data. Current Interpretive Data was last revised on 2018. Lymphocyte pct 39.7 % [facility] Comment: Interpretive Data Percent cell count reference ranges are not reported, since discordance with absolute values may lead to misinterpretation of CBC data. Current Interpretive Data was last revised on 2018. Monocyte pct 7.7 % [facility] Comment: Interpretive Data Percent cell count reference ranges are not reported, since discordance with absolute values may lead to misinterpretation of CBC data. Current Interpretive Data was last revised on 2018. Eosinophil pct 0.8 % [facility] Comment: Interpretive Data Percent cell count reference ranges are not reported, since discordance with absolute values may lead to misinterpretation of CBC data. Current Interpretive Data was last revised on 2018. Basophil pct 0.4 % [facility] Comment: Interpretive Data Percent cell count reference ranges are not reported, since discordance with absolute values may lead to misinterpretation of CBC data. Current Interpretive Data was last revised on 2018. Blood 09/02/2024 11:3 5 AM DISEASE AND INSECT CONTROL BOSS 09/02/2024 10:09 PM DISEASE AND INSECT CONTROL BOSS us Chip Kilgore MD LAB BLOOD ORDERABLES Final Result [facility] [address] Department [place] [address] * Thyroid Function [place] (09/02/2024 11:35 AM DISEASE AND INSECT CONTROL BOSS) TSH 3.00 0.30 - 4.20 mcIUnit/mL Blood 09/02/2024 11:3 5 AM DISEASE AND INSECT CONTROL BOSS 09/02/2024 10:09 PM DISEASE AND INSECT CONTROL BOSS Chip Kilgore MD LAB BLOOD ORDERABLES Final Result Performing Organization Address [facility] de Phone Number ANNEL FRIAS [address] Department [place] [address] * (ABNORMAL) CBC with auto differential (09/02/2024 11:35 AM DISEASE AND INSECT CONTROL BOSS) Pathologist [facility] WBC 4.8 3.8 - 9.9 K/cumm Hgb 13.6 11.9 - 15.5 g/dL [facility] Hct 43.8 35.6 - 45.5 % [facility] Plt 245 150 - 400 K/cumm [facility] MPV 10.2 9.1 - 12.3 fL [facility] RBC 4.42 3.90 - 5.20 M/cumm [facility] MCV 99.1(H) 81.3 - 96.4 fL [facility] MCH 30.8 27.1 - 33.3 pg [facility] MCHC 31.1(L) 32.3 - 35.7 g/dL [facility] RDW CV 13.0 11.1 - 14.9 % [facility] RDW SD 47.3 35.7 - 48.1 fL [facility] NRBC abs 0.00 0.00 - 0.01 K/cumm [facility] Blood 09/02/2024 11:3 5 AM DISEASE AND INSECT CONTROL BOSS 09/02/2024 10:09 PM DISEASE AND INSECT CONTROL BOSS Chip Kilgore MD LAB BLOOD ORDERABLES Final Result Performing Organization Address [facility] de Phone Number ANNEL FRIAS [address] Department [place] [address] * Albumin Creatinine Ratio, Urine (09/02/2024 11:35 AM DISEASE AND INSECT CONTROL BOSS) [facility] Albumin Ur <12.0 mg/L Comment: Interpretive Data No reference range established. Current interpretive data was last revised 2019. Creatinine Ur 33.5 mg/dL [facility] Comment: Interpretive Data No reference range established. Current interpretive data was last revised 2019. Albumin Creatinine Ratio, Ur See Comment 1 - 29 ANN[facility] Comment:Unable to calculate Urine 09/02/2024 11:3 5 AM DISEASE AND INSECT CONTROL BOSS 09/02/2024 10:09 PM DISEASE AND INSECT CONTROL BOSS Chip Kilgore MD LAB URINE ORDERABLES Final Result Performing Organization Address [facility] Co de Phone Number ANNEL [address] [place] [address] * (ABNORMAL) Hemoglobin A1c (09/02/2024 11:35 AM DISEASE AND INSECT CONTROL BOSS) Hgb A1C 5.9(H) 4.0 - 5.6 % Estimated Average Glucose 123 mg/dL [facility] Comment: The ADA recommends reporting an estimated Average Glucose (eAG) with all Hemoglobin A1c results using the equation derived from a study of 507 normal and diabetic adults. Minority populations were underrepresented and children were not included. (Diabetes Care 31:9565-7800, 2008). The eAG is not equivalent to a fasting glucose. Blood 09/02/2024 11:3 5 AM DISEASE AND INSECT CONTROL BOSS 09/02/2024 10:09 PM DISEASE AND INSECT CONTROL BOSS Chip Kilgore MD LAB BLOOD ORDERABLES Final Result Performing Organization Address [facility] Co de Phone Number ANNEL FRIAS [address] [place] [address] * (ABNORMAL) Lipid panel (09/02/2024 11:35 AM DISEASE AND INSECT CONTROL BOSS) Cholesterol 206(H) 30 - 199 mg/dL Comment: [...] revised on 2024. Non-HDL Cholesterol 142 mg/dL [facility] Comment: Interpretive Data Ages < or = [...] last revised on 2018. Chol/HDL ratio 3 [facility] Blood 09/02/2024 11:3 5 AM DISEASE AND INSECT CONTROL BOSS 09/02/2024 10:09 PM DISEASE AND INSECT CONTROL BOSS Chip Kilgore MD LAB BLOOD ORDERABLES Final Result [facility] [address] Department [place] [address] * Comprehensive metabolic panel (09/02/2024 11:35 AM DISEASE AND INSECT CONTROL BOSS) Sodium 137 135 - 145 mmol/L Potassium, pl 4.6 3.3 - 4.9 mmol/L [facility] Chloride 102 97 - 110 mmol/L [facility] CO2 26 22 - 32 mmol/L [facility] Anion gap 9 2 - 15 mmol/L [facility] BUN 16 6 - 25 mg/dL [facility] Creatinine 0.85 0.60 - 1.10 mg/dL [facility] Glucose 99 70 - 199 mg/dL [facility] Comment: Interpretive Data Fasting glucose >/= 126 [...] [facility] Blood 09/02/2024 11:3 5 AM DISEASE AND INSECT CONTROL BOSS 09/02/2024 10:09 PM DISEASE AND INSECT CONTROL BOSS Chip Kilgore MD LAB BLOOD ORDERABLES Final Result [facility] [address] Department [place] [address] * (ABNORMAL) COLONOSCOPY (05/20/2024 2:17 PM CDT) Scribed Colonoscopy Abnormal Historical Provider HEALTH MAINTENANCE Final Result * MAMMOGRAPHY (04/11/2024 12:00 PM CDT) Historical Carolyn PAGE HEALTH MAINTENANCE Final Result from Last 3 Months or Most Recently Relevant to Health Maintenance Insurance T MEDICARE AETNA MEDICARE [facility] Address[facility] [id number] [place] [id number] AETNA MEDICARE [facility] MEDICARE Address: [facility] [id number] [place] [id number] Advance Directives For more information, please contact: [phone] * Full Code (Latest Code Status on File) Date Activated Date Inactivated Comments 10/16/2023 9:48 PM 10/18/2023 5:02 PM Care Teams Project Planner Relationship Specialty Start Date End Date Chip Kilgore MD [address] [facility] [address] [place] [address] PCP - General Family Medicine 02/21/24 Ari Patel MD [facility] [facility] [address] [place] [address] Consulting Physician Cardiovascular Disease 02/21/24 Alessandro Kay MD [address] [place] [address] Referring Physician Gastroenterology 03/20/24
--- OUTSIDE RECORDS SUMMARY | 2024-11-29 11:23 | XMS_ITS | Encounter Summary ---
Author Organization [facility] Healthcare Address [address] [place] [address] Care Team Providers Care Dress Marker Name Role Phone Chip Kilgore MD Primary Care Provider Ari Patel MD Unavailable [phone] Alessandro Kay MD Unavailable [phone] Encounter Details Date Type Department Care Team (Late st Contact Info) Description 02/26/2024 Telephone [facility] Medical Group Primary Care at [address] [address] Chip Kilgore MD [address] [place] [address] [address] [place] [address] Social History Tobacco Use Types Packs/Day Years Used Date Smoking Tobacco: Former Cigarettes 0.1 10 1 4 1984 [facility] Utilities Answer Date Recorded In the past 12 months has [employer], gas, oil, or water [employer] threatened to shut off services in your [...] week 10/19/2023 How often do you attend [facility] or mu-ism services? More than 4 times per year 10/19/2023 Do you belong to any clubs o r organizations such as tenriism groups, unions, fraternal or athletic groups, or [...] place to sleep or slept in a group home (including now)? No 10/19/2023 Personal Safety Answer Date Recorded Have you ever been in or are you currently in a harmful physical or emotional relationship or is someone making you feel afraid or unsafe? 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 Gender Identity Not on file Sexual Orientation Not on file documented as of this encounter Plan of Treatment Not on file documented as of this encounter Visit Diagnoses Not on filedocumented in this encounter Care Teams Dress Marker Relationship Specialty Start Date End Date Chip Kilgore MD [address] [facility] [address] [place] [address] PCP - General Family Medicine 02/21/24 Ari Patel MD [address] [facility] [address] [place] [address] Consulting Physician Cardiovascular Disease 02/21/24 Alessandro Kay MD [address] [place] [address] Referring Physician Gastroenterology 03/20/24 documented as of this encounter
--- OUTSIDE RECORDS SUMMARY | 2024-11-29 11:23 | XMS_ITS | Encounter Summary ---
Author Organization [facility] Healthcare Address [address] [place] [address] Care Team Providers Care Geotechnical Laboratory Technician Name Role Phone Chip Kilgore MD Primary Care Provider Ari Patel MD Unavailable [phone] Alessandro Kay MD Unavailable [phone] Reason for Visit * Reason Onset Date Comments Symptom Based Call 11/20/2024 Encounter Details Date Type Department Care Team (Late st Contact Info) Description 11/20/2024 Telephone [facility] Medical Group Primary Care at [address] [address] Chip Kilgore MD [address] [place] [address] [address] [place] [address] Symptom Based Call Social History Tobacco Use Types Packs/Day Years Used Date Smoking Tobacco: Former Cigarettes 0.1 10 1 974 - 1983 [facility] Utilities Answer Date Recorded In the past 12 months has [employer], gas, oil, or water [employer] threatened to shut off services in your [...] week 10/19/2023 How often do you attend [facility] or episcopalian services? More than 4 times per year 10/19/2023 Do you belong to any clubs o r organizations such as restorationist groups, unions, fraternal or athletic groups, or [...] place to sleep or slept in a long-term (including now)? No 10/19/2023 Personal Safety Answer Date Recorded Have you ever been in or are you currently in a harmful physical or emotional relationship or is someone making you feel afraid or unsafe? Denies 10/14/2023 Comments No Sex and Gender Information Value Date Recorded Sex Assigned at Not on file Legal Sex Female 12:12 AM CARDIAC TECHNOLOGIST Gender Identity Not on file Sexual Orientation Not on file documented as of this encounter Miscellaneous Notes * Telephone Encounter - Lila Mary MA - 11/21/2024 2:19 PM CARDIAC TECHNOLOGIST Pt was seen with [facility] Virtual Care IAC TECHNOLOGIST * Telephone Encounter - Maggie Moncada - [...] for their cough) to be called into [id number] - [place], [place] - [address] Does message need to be routed? Yes-Action Needed IAC TECHNOLOGIST documented in this encounter Plan of Treatment Not on file documented as of this encounter Visit Diagnoses Not on filedocumented in this encounter Care Teams Geotechnical Laboratory Technician Relationship Specialty Start Date End Date Chip Kilgore MD [address] [facility] [address] [place] [address] PCP - General Family Medicine 02/21/24 Ari Patel MD [address] [facility] [address] [place] [address] Consulting Physician Cardiovascular Disease 02/21/24 Alessandro Kay MD [address] [place] [address] Referring Physician Gastroenterology 03/20/24 documented as of this encounter
--- OUTSIDE RECORDS SUMMARY | 2024-11-29 11:23 | XMS_ITS | Clinical Summary ---
Author Organization [facility] Address [address] [facility] [place] [address] Care Team Providers Care Spinning Bath Person Name Role Phone Patricia Gaytan MD Primary Care Provider Source Comments [facility],non-owned Affiliates and Associated Physician Practices is amultiple site organization consisting of ambulatory clinics and hospital sitesin [place], [place], [place] and [place]. This disclosure is being madepursuant to the Care Everywhere program and may not contain all information available regarding this patient. Last updated 18.[facility] Immunizations Name Administration Dates Next Due [...] age to complete this topic Care Teams Spinning Bath Person Relationship Specialty Start Date End Date Patricia Gaytan MD [address] [place] [phone] PCP - General 07/28/21
--- OUTSIDE RECORDS SUMMARY | 2024-11-29 11:23 | XMS_ITS | Referral Summary ---
Author Organization [facility] Address [address] [place] [address] Care Team Providers Care Hedis Nurse Name Role Phone Patricia Gaytan MD Primary Care Provider Source Comments [facility],non-owned Affiliates and Associated Physician Practices is amultiple site organization consisting of ambulatory clinics and hospital sitesin [place], [place], [place] and [place]. This disclosure is being madepursuant to the Care Everywhere program and may not contain all information available regarding this patient. Last updated 18.[facility] [employer] Immunizations Name Administration Dates Next Due INFLUENZA VACCINE, HIGH-DOSE , QUADR. (FLUZONE HIGH-DOSE QUADRIVALENT; 65Y+), 0.7 ML ([id number]) 07/05/2020 Social History Tobacco Use Types Packs/Day Years Used Date Smoking Tobacco: Never Assessed Sex and Gender Information Value Date Recorded Sex Assigned at Not on file Gender Identity Not on file Sexual Orientation Not on file Plan of Treatment Not on file Care Teams Hedis Nurse Relationship Specialty Start Date End Date Patricia Gaytan MD [address] [place], [place] [address] [place] [id number] PCP - General 07/28/21
--- OUTSIDE RECORDS SUMMARY | 2024-11-29 11:23 | XMS_ITS | Clinical Summary ---
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 Name Role Phone Chip Kilgore MD Primary Care Provider Ari Patel MD Unavailable [phone] Alessandro Kay MD Unavailable [phone] Allergies Active Allergy Reactions Criticality Noted Date Comments Glipizide-Metformin Diarrhea Low 03/03/2024 Metformin Diarrhea High 03/03/2024 Paroxetine Unknown High 05/29/2019 Propoxyphene-Acetaminophen Unknown High 9 Spironolactone Unknown High 05/29/2019 Medications aspirin 81 mg chewable tablet Take 1 tablet (81 mg total) by mouth nightly Active levothyroxine (SYNTHROID) 50 mcg tablet Take 1 tablet (50 mcg total) by mouth patient care technician instructor before breakfast Active lisinopriL (PRINIVIL,ZESTR [place]) 5 [...] 11/2023 Assessment & Plan (09/02/2024 10:52 AM MARRIAGE COUNSELOR): A(n) yearly Medicare Annual Wellness Visit has [...] Department Care Team Description 11/20/2024 9:00 PM MARRIAGE COUNSELOR Telemedicine [facility] Care [address] [place] [phone] Feli Trejo NP Flu-like symptoms (Primary Dx) 11/20/2024 Nurse Triage [facility] Primary Care at [address] [phone] Chip Kilgore MD 11/20/2024 Telephone [facility] Primary Care at [address] [phone] Chip Kilgore MD Symptom Based Call 09/04/2024 Telephone [facility] Primary Care at [address] [phone] Chip Kilgore MD Test Results (labs) 09/02/2024 11:45 AM MARRIAGE COUNSELOR Lab [facility] Outpatient Lab at [address] [phone] Encounter for Medicare annual wellness exam (Primary Dx); Establishing care with new doctor, encounter for 09/02/2024 10:30 AM MARRIAGE COUNSELOR Office Visit [facility] Primary Care at [address] [phone] Chip Kilgore MD Encounter for Medicare annual wellness exam (Primary Dx); Hyperlipidemia associated with type 2 diabetes mellitus (HCC); Diverticulosis; Hiatal hernia; Thyromegaly; Screening for diabetic retinopathy 09/02/2024 9:46 AM MARRIAGE COUNSELOR - 09/02/2024 11:59 PM MARRIAGE COUNSELOR Hospital Encounter [address] [address] Thyromegaly; Hyperlipidemia associated with type 2 diabetes [...] - 1984 Tobacco Cessation:Counseling Given: Not Answered [facility] Utilities Answer Date Recorded In the past 12 months has [employer], gas, oil, or water [employer] threatened to shut off services in your [...] week 10/19/2023 How often do you attend [facility] or catholic services? More than 4 times per year 10/19/2023 Do you belong to any clubs o r organizations such as druze groups, unions, fraternal or athletic groups, or [...] on file Legal Sex Female 12:12 AM MARRIAGE COUNSELOR Gender Identity Not on file Sexual Orientation Not on file Obstetrics History Last Filed Vital Signs Vital Sign Reading Time Taken Comments Blood Pressure 132/80 09/02/2024 10:41 AM MARRIAGE COUNSELOR Pulse 74 09/02/2024 10:41 AM MARRIAGE COUNSELOR Temperature 35.9 C (96.7 F) 09/02/2024 10:41 AM MARRIAGE COUNSELOR Respiratory Rate 16 09/02/2024 10:41 AM MARRIAGE COUNSELOR Oxygen Saturation 98% 09/02/2024 10:41 AM MARRIAGE COUNSELOR Inhaled Oxygen Concentration - - Weight 60.8 kg (134 lb) 09/02/2024 10:41 AM MARRIAGE COUNSELOR Height 157.5 cm (5' 2 ) 09/02/2024 10:41 AM MARRIAGE COUNSELOR Body Mass Index 24.51 09/02/2024 10:41 AM MARRIAGE COUNSELOR Plan of Treatment Health Maintenance Due Date [...] Diagnosis Comments EGFR Routine 09/02/2024 11:35 AM MARRIAGE COUNSELOR Hyperlipidemia associated with type 2 diabetes mellitus (HCC) DIFFERENTIAL AUTO Routine 09/02/2024 11: 35 AM MARRIAGE COUNSELOR Hyperlipidemia associated with type 2 diabetes mellitus (HCC) Hiatal hernia ALBUMIN CREATININE RATIO, URINE Routine 09/02/2024 11:35 AM MARRIAGE COUNSELOR Hyperlipidemia associated with type 2 diabetes mellitus (HCC) CBC WITH AUTO DIFFERENTIAL Routine 09/02/2024 11:35 AM MARRIAGE COUNSELOR Hyperlipidemia associated with type 2 diabetes mellitus (HCC) Hiatal hernia COMPREHENSIVE METABOLIC PANEL Routine 09/02/2024 11:35 AM MARRIAGE COUNSELOR Hyperlipidemia associated with type 2 diabetes mellitus (HCC) HEMOGLOBIN A1C Routine 09/02/2024 11:35 AM MARRIAGE COUNSELOR Hyperlipidemia associated with type 2 diabetes mellitus (HCC) LIPID PANEL Routine 09/02/2024 11:35 AM MARRIAGE COUNSELOR Hyperlipidemia associated with type 2 diabetes mellitus (HCC) THYROID FUNCTION CASCADE Routine 09/02/2024 11:35 AM MARRIAGE COUNSELOR Thyromegaly HM COLONOSCOPY Routine 05/20/2024 2:17 PM CDT HM MAMMOGRAPHY Routine 04/11/2024 12:00 PM CDT from Last 3 Months or Most Recently Relevant to Health Maintenance Results * eGFR (09/02/2024 11:35 AM MARRIAGE COUNSELOR) eGFR 72 >=60 mL/min/1. 73 m2 Comment: [...] reviewed 2021. Blood 09/02/2024 11:3 5 AM MARRIAGE COUNSELOR 09/02/2024 10:20 PM MARRIAGE COUNSELOR us Chip Kilgore MD LAB BLOOD ORDERABLES Final Result [facility] [address] Department [place] [address] * Differential, auto (09/02/2024 11:35 AM MARRIAGE COUNSELOR) Neutrophil abs 2.4 1.5 - 6.5 K/cumm Imm gran abs 0.0 0.0 - 0.1 K/cumm [facility] Lymphocyte abs 1.9 0.8 - 3.3 K/cumm [facility] Monocyte abs 0.4 0.2 - 0.8 K/cumm [facility] Eosinophil abs 0.0 0.0 - 0.5 [...] on 2018. Imm gran pct 0.2 % [facility] Comment: Interpretive Data Percent cell count reference ranges are not reported, since discordance with absolute values may lead to misinterpretation of CBC data. Current Interpretive Data was last revised on 2018. Lymphocyte pct 39.7 % [facility] Comment: Interpretive Data Percent cell count reference ranges are not reported, since discordance with absolute values may lead to misinterpretation of CBC data. Current Interpretive Data was last revised on 2018. Monocyte pct 7.7 % [facility] Comment: Interpretive Data Percent cell count reference ranges are not reported, since discordance with absolute values may lead to misinterpretation of CBC data. Current Interpretive Data was last revised on 2018. Eosinophil pct 0.8 % [facility] Comment: Interpretive [...] on 2018. Blood 09/02/2024 11:3 5 AM MARRIAGE COUNSELOR 09/02/2024 10:09 PM MARRIAGE COUNSELOR us Chip Kilgore MD LAB BLOOD ORDERABLES Final Result [facility] [address] Department [place] [address] * Thyroid Function [place] (09/02/2024 11:35 AM MARRIAGE COUNSELOR) TSH 3.00 0.30 - 4.20 mcIUnit/mL Blood 09/02/2024 11:3 5 AM MARRIAGE COUNSELOR 09/02/2024 10:09 PM MARRIAGE COUNSELOR Chip Kilgore MD LAB BLOOD ORDERABLES Final Result Performing Organization Address [facility] de Phone Number [facility] FRIAS [address] Department [place] [address] * (ABNORMAL) CBC with auto differential (09/02/2024 11:35 AM MARRIAGE COUNSELOR) [facility] WBC 4.8 3.8 - 9.9 K/cumm Hgb [...] [facility] Blood 09/02/2024 11:3 5 AM MARRIAGE COUNSELOR 09/02/2024 10:09 PM MARRIAGE COUNSELOR Chip Kilgore MD LAB BLOOD ORDERABLES Final Result Performing Organization Address [facility] de Phone Number ANNEL FRIAS [address] Department [place] [address] * Albumin Creatinine Ratio, Urine (09/02/2024 11:35 AM MARRIAGE COUNSELOR) [facility] Albumin Ur <12.0 mg/L Comment: Interpretive Data No reference range established. Current interpretive data was last revised 2019. Creatinine Ur 33.5 mg/dL [facility] Comment: Interpretive Data No reference range established. Current interpretive data was last revised 2019. Albumin Creatinine Ratio, Ur See Comment 1 - 29 [facility] Comment:Unable to calculate Urine 09/02/2024 11:3 5 AM MARRIAGE COUNSELOR 09/02/2024 10:09 PM MARRIAGE COUNSELOR Result [facility] Chip Kilgore MD LAB URINE ORDERABLES Final Result Performing Organization Address [facility] Co de Phone Number [facility] [address] [place] [address] * (ABNORMAL) Hemoglobin A1c (09/02/2024 11:35 AM MARRIAGE COUNSELOR) Hgb A1C 5.9(H) 4.0 - 5.6 % Estimated Average Glucose 123 mg/dL [facility] Comment: The ADA recommends reporting an estimated Average Glucose (eAG) with all Hemoglobin A1c results using the equation derived from a study of 507 normal and diabetic adults. Minority populations were underrepresented and children were not included. (Diabetes Care 31:9339-4829, 2008). The eAG is not equivalent to a fasting glucose. Blood 09/02/2024 11:3 5 AM MARRIAGE COUNSELOR 09/02/2024 10:09 PM MARRIAGE COUNSELOR Result [facility] Chip Kilgore MD LAB BLOOD ORDERABLES Final Result Performing Organization Address [facility] Co de Phone Number ANNEL FRIAS [phone] [facility] [employer] [place] [address] * (ABNORMAL) Lipid panel (09/02/2024 11:35 AM MARRIAGE COUNSELOR) Cholesterol 206(H) 30 - 199 mg/dL Comment: [...] [facility] Blood 09/02/2024 11:3 5 AM MARRIAGE COUNSELOR 09/02/2024 10:09 PM MARRIAGE COUNSELOR Chip Kilgore MD LAB BLOOD ORDERABLES Final Result [facility] [address] Department [place] [address] * Comprehensive metabolic panel (09/02/2024 11:35 AM MARRIAGE COUNSELOR) Sodium 137 135 - 145 mmol/L Potassium, [...] [facility] Blood 09/02/2024 11:3 5 AM MARRIAGE COUNSELOR 09/02/2024 10:09 PM MARRIAGE COUNSELOR Chip Kilgore MD LAB BLOOD ORDERABLES Final Result [facility] [address] Department [place] [address] * (ABNORMAL) COLONOSCOPY (05/20/2024 2:17 PM CDT) Scribed Colonoscopy Abnormal Historical Provider HEALTH MAINTENANCE Final Result * MAMMOGRAPHY (04/11/2024 12:00 PM CDT) Glenny Leon MD HEALTH MAINTENANCE Final Result from Last 3 Months or Most Recently Relevant to Health Maintenance Insurance T MEDICARE [employer] [facility]ARE [facility] - [facility] MEDIC[facility] Address: [facility] [id number] [place] [phone] [employer] [facility] MED[facility] Address: [facility] [id number] [place] [phone] Advance Directives For more information, please contact: [phone] * Full Code (Latest Code Status on File) Date Activated Date Inactivated Comments 10/16/2023 9:48 PM 10/18/2023 5:02 PM Care Teams Parts Casting Machine Operator Relationship Specialty Start Date End Date Chip Kilgore MD [address] [place] [address] PCP - General Family Medicine 02/21/24 Ari Patel MD [address] [facility] [address] [place] [address] Consulting Physician Cardiovascular Disease 02/21/24 Alessandro Kay MD [address] [place] [address] Referring Physician Gastroenterology 03/20/24
[2024-11-29 11:24] LABS: Alanine Aminotransferase 17 U/L (6-35); Albumin Level 4.1 g/dL (3.5-5.1); Alkaline Phosphatase 82 U/L (38-126); Anion Gap 9 mmol/L (4-12); Aspartate Amino Transferase 32 U/L (14-36); Bilirubin,Total 0.6 mg/dL (0.2-1.3); Blood Urea Nitrogen 18 mg/dL (7-17); Calcium 9.6 mg/dL (8.4-10.2); Carbon Dioxide 27 mmol/L (22-30); Chloride 102 mmol/L (98-107); Estimated CRCL calculation 48 ml/min; Estimated Glomerular Filt Rate > 60; Glucose 110 mg/dL (65-110); Lipase 128 U/L (23-300); Potassium 4.3 mmol/L (3.4-5.0); Sodium 138 mmol/L (137-145)
[2024-11-29 11:32] LABS: NT Pro B Type Natriuretic Pept 72 pg/mL (19.9-100)
[2024-11-29 11:36] LABS: Troponin I < 0.012 ng/mL (0.000-0.034)
[2024-11-29 11:40] LABS: D Dimer 0.25 ug/mL (<0.48)
--- NOTE | 2024-11-29 13:54 | ECG_ITS ---
Test Date: 2024-11-29 14:01:41 Measurements Intervals [place] Rate: 71 P: 37 MI: 186 QRS: 29 QRSD: 96 T: 37 QT: 381 QTc: 415 Interpretive Statements SINUS RHYTHM NORMAL ECG Compared to ECG 11/29/2024 10:57:19 No significant changes Electronically Signed On 11-29-2024 19:06:20 DAMAGE APPRAISER by Kalyan Khan D.O.
--- NOTE | 2024-11-29 13:55 | PM.IMHP ---
H&P: HPI History of Present Illness Date/Time: 11/29/24 14:30 Chief Complaint: Chest pain. Narrative: This is a very pleasant 73-year-old female with hypertension, hyperlipidemia, type 2 diabetes mellitus, gastroesophageal reflux disease, Rolle esophagus, peptic ulcer, hiatal hernia, iron deficiency anemia, and hypothyroidism who presented to the emergency department via private vehicle for evaluation of chest pain. The patient provides the following history. Not long prior to arrival she was going through mail when she developed sudden, sharp substernal chest pain radiating to the right side of the neck and jaw. Within 15 minutes her symptoms gradually with resolved without intervention however she has had intermittent chest heaviness since that time. She notes an increase in stress recently. Her last week of cancer and she reports that the last 4 weeks of his life were very stressful. She spent the majority of that time caring for him and admits that she neglected her own self-care. She has not had chest pain until today but reports an increase in GERD symptoms and belching for which she has been taking Tums in addition to her usual pantoprazole. She also has noticed swelling in her feet and ankles over the past 4 weeks or so which is unusual for her. She denies syncope, near syncope, sweats, shortness of breath, pleuritic pain, palpitations, racing heart, nausea, abdominal pain, vomiting, melena, hematochezia, and hematemesis. Of note, she had a stress echo in October 2023 which did show subtle anteroseptal and septal wall hypokinesis suggestive of possible LAD stenosis. She was referred to [facility] and had what sounds like a cardiac MRI which did not show any significant disease. In the ED: Vital signs were stable on arrival. Initial troponin was within normal limits. The remainder of her labs were unremarkable. Chest x-ray showed emphysema and moderate size hiatal hernia without acute cardiopulmonary disease. EKG demonstrated normal sinus rhythm without concerning ST segment changes. She received aspirin 324 mg and is being admitted in this setting for close monitoring and Cardiology consultation. Review of Systems Review of Systems: 12 systems were reviewed and are negative except for as per HPI. [facility] Past Medical History Medical History (Updated 11/29/24 @ 16:47 by Princess Ivey PA-C) Gastroesophageal reflux disease Gastric polyp Peptic ulcer Aortic regurgitation Hiatal hernia Rolle esophagus Adenomatous colon polyp Type 2 diabetes mellitus Hyperlipidemia Hypertension Compression fracture of T12 vertebra Memory deficit Traumatic compression fracture of eleventh thoracic vertebra Irritable bowel syndrome with diarrhea Hypothyroidism Goiter Arthritis Surgical History Surgical History History of bilateral breast biopsy benign History of bilateral cataract extraction History of cardiac catheterization History of hysterectomy (1999) History of appendectomy (1979) History of tonsillectomy (1974) History of cataract surgery (2003) History of cholecystectomy (1989) Family History Family History Father , 65 Emphysema, unspecified Mother , 43 Heart attack Social History Social History (Updated 11/29/24 @ 16:48 by Princess Ivey PA-C) Social History: Surrogate medical decision maker: Vale Trejo, daughter. Code status: Full code. Smoking packs per day: 1 Smoking cigarettes per day: 20.0 Years smoked: 10 Smoking pack-years: 10.00 Smoking status: Former smoker Tobacco type: cigarettes Second hand tobacco smoke exposure: No Additional smoking assessment comments: Quit in 1973. Alcohol intake: never Substance use: never Substance use type: does not use Do You Feel Safe in your Home?: Yes Living arrangements: with family Additional living arrangements comments: as of November 2024. Three children. 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 Spiritual care concerns: No Meds Home Medications and Allergies Home Medications ?Medication ?Instructions ?Recorded ?Confirmed ?Type aspirin 81 mg chewable tablet 81 mg PO HS 11/19/19 05/20/24 History blood-glucose meter (OneTouch #1 ea 04/30/20 04/16/24 Rx Ultra2 Meter kit) lancets 33 gauge (OneTouch Delica #100 ea 05/27/21 04/16/24 Rx Lancets) blood sugar diagnostic #100 ea 04/10/22 04/16/24 Rx rosuvastatin 10 mg tablet See Rx Instructions .Route 08/02/23 05/20/24 Rx .COMPLEX #90 tabs ferrous sulfate 325 mg (65 mg 325 mg PO DAILY #90 tabs 11/27/23 05/20/24 Rx iron) tablet pantoprazole 40 mg tablet,delayed 40 mg PO BID #180 tabs 11/27/23 05/20/24 Rx release empagliflozin 10 mg tablet 10 mg PO DAILY 04/16/24 05/20/24 History (Jardiance) pioglitazone 15 mg tablet 15 mg PO DAILY 04/16/24 05/20/24 History lisinopril 5 mg tablet 5 mg PO QAM #90 tabs 07/02/24 Rx levothyroxine 50 mcg tablet See Rx Instructions .Route 09/30/24 Rx .COMPLEX #90 tabs Allergies Allergy/AdvReac Type Severity Reaction Status Date / Time propoxyphene Allergy Severe TONGUE Verified 05/20/24 07:35 SWELLING AND STOPPED BREATHING Vital Signs Vital Signs - 24 hr 11/29/24 10:44 11/29/24 11:01 11/29/24 11:01 Temperature 97.8 F Pulse Rate 77 84 Respiratory Rate 16 16 Blood Pressure 164/62 H 134/56 L Pulse Oximetry 99 99 99 Oxygen Delivery Room Air Room Air 11/29/24 11:16 11/29/24 11:31 11/29/24 11:46 Temperature Pulse Rate 87 77 81 Respiratory Rate 16 17 15 Blood Pressure 146/69 H 138/60 133/55 L Pulse Oximetry 95 96 96 Oxygen Delivery 11/29/24 12:01 Temperature Pulse Rate 78 Respiratory Rate 18 Blood Pressure 133/60 Pulse Oximetry 98 Oxygen Delivery Exam Narrative: General: Well-developed, nontoxic-appearing female sitting up in bed in no acute distress. Weight: 61.2 kg. BMI: 24.7. HEENT: PERRL, EOMI. Sclera anicteric. Oral mucosa moist. Oropharynx clear. Neck: Supple. Respiratory: Lungs are clear to auscultation bilaterally. Cardiovascular: Regular rate and rhythm with S1-S2. Chest: No tenderness to palpation over the chest wall. Gastrointestinal: Abdomen is soft, nontender, and nondistended with positive bowel sounds. No guarding or rebound tenderness. Skin: Warm and dry. Delete Extremities: No cyanosis or clubbing. Trace genna ankle edema bilaterally. No palpable knots or cords. Negative [place] sign bilaterally. Neurological: Alert. Cranial nerves 2-12 are grossly intact. Delete No gross focal deficits to casual conversation. Psychiatric: Pleasant and cooperative with normal mood and affect. Judgment and insight intact. H&P: Results Labs Labs: Short CBC 11/29/24 Range/Units 10:59 WBC 5.2 (4.5-10.0) K/mm3 Hgb 13.3 (12.0-15.0) g/dL Hct 40.5 (37.0-47.0) % Plt Count 257 (150-375) k/mm3 BMP 11/29/24 10:59 Sodium 138 Potassium 4.3 Chloride 102 Carbon Dioxide 27 BUN 18 H Creatinine 0.70 Glucose 110 Calcium 9.6 Cardiac Enzymes 11/29/24 Range/Units 10:59 Troponin I < 0.012 (0.000-0.034) ng/mL Liver Function 11/29/24 Range/Units 10:59 Total Bilirubin 0.6 (0.2-1.3) mg/dL AST 32 (14-36) U/L ALT 17 (6-35) U/L Alkaline Phosphatase 82 (38-126) U/L Albumin 4.1 (3.5-5.1) g/dL Imaging Chest X-Ray 11/29/24 11:41 IMPRESSION: 1. Emphysema. No acute cardiopulmonary disease. 2. Moderate-sized hiatal hernia. Assessment and Plan Assessment and plan (1) Chest pain: Qualifiers: Chest pain type: unspecified Qualified Code(s): R07.9 - Chest pain, unspecified Code(s): R07.9 - Chest pain, unspecified Status: Resolved (2) Hypertension: Code(s): I10 - Essential (primary) hypertension Status: Acute (3) Hyperlipidemia: Code(s): E78.5 - Hyperlipidemia, unspecified Status: Acute (4) Type 2 diabetes mellitus: Code(s): E11.9 - Type 2 diabetes mellitus without complications Status: Acute (5) Hypothyroidism: Qualifiers: Hypothyroidism type: acquired Qualified Code(s): E03.9 - Hypothyroidism, unspecified Code(s): E03.9 - Hypothyroidism, unspecified Status: Chronic (6) Gastroesophageal reflux disease: Code(s): K21.9 - Gastro-esophageal reflux disease without esophagitis Status: Acute (7) Rolle esophagus: Code(s): K22.70 - Rolle's esophagus without dysplasia Status: Acute (8) Hiatal hernia: Code(s): K44.9 - Diaphragmatic hernia without obstruction or gangrene Status: Acute Plan The patient presented to the emergency department for evaluation of sudden-onset chest pain earlier today as detailed in HPI. Labs, imaging, EKG, and all reports were personally reviewed. Initial troponin and EKG were unremarkable. Due to her risk factors, she is being admitted for close monitoring and to rule out acute coronary syndrome. Echocardiogram ordered. PE is considered although seems less likely by history. Lower extremity venous Doppler ultrasounds have been ordered however given the development of pedal and genna ankle edema over the past several weeks. Her pain may very well be stemming for image GI etiology as she reports an increased stress and worsening GERD symptoms recently. Stress and anxiety from the recent loss of her could be playing a factor as well. This does not seem to be musculoskeletal. Her water taxi driver, Dr. Khan, has been consulted for recommendations. As her 's is on Sunday, she would prefer to be discharged home tomorrow and if she rules out for acute coronary syndrome by serial troponins, I think that would be appropriate. Consider GI referral as an outpatient depending on her course. Labs were unremarkable. She reports that her chronic medical conditions are well controlled on medication. Vital signs were reviewed and they have been stable. Her medications will be reviewed and resumed as appropriate. Findings and treatment plan were discussed with the patient. Questions were solicited and answered to satisfaction. The patient's medical management will be taken over by the hospitalist team in a.m. Quality VTE Prophylaxis VTE prophylaxis: pharmacologic ordered The patient has been admitted under observation status. Hospitalist [facility] Advance Care Plan I have confirmed that the patient's Advanced Care Plan is present, code status is documented, or surrogate decision maker is listed in patient medical record.: Yes Medication Reconciliation I have utilized all available resources to obtain, update and review the patients current medications (includes all prescriptions, OTC, herbals, cannabis, and nutritional supplements).: Yes
[2024-11-29 14:30] LABS: Troponin I < 0.012 ng/mL (0.000-0.034)
--- NOTE | 2024-11-29 14:38 | PC.NURSE ---
ordered pt meal tray at [phone].
--- NOTE | 2024-11-29 15:43 | PC.NURSE ---
PTT, PT INR not resulted yet from blood work sent down at 1059 so this RN called lab. they report that they can run it now, and do not need new tube for testing.
[2024-11-29 15:50] LABS: INR 0.9; Prothrombin Time 12.6 Seconds (11.1-14.7)
[2024-11-29 15:51] LABS: Partial Thromboplastin Time 26.1 Seconds (22.3-36.8)
--- NOTE | 2024-11-29 16:56 | ECG_ITS ---
Test Date: 2024-11-29 17:02:42 Measurements Intervals [place] Rate: 98 P: 18 ND: 164 QRS: 31 QRSD: 100 T: 9 QT: 342 QTc: 437 Interpretive Statements SINUS RHYTHM MINIMAL Q WAVES- INFERIOR LEADS BORDERLINE ST-T WAVE ABNORMALITY- INFERIOR LEADS BORDERLINE ECG Compared to ECG 11/29/2024 14:01:41 NO SIGNIFICANT CHANGE Electronically Signed On 11-29-2024 19:08:08 PSYCHIATRIC ORDERLY by Kalyan Khan D.O.
[2024-11-29 17:44] LABS: Troponin I < 0.012 ng/mL (0.000-0.034)
--- NOTE | 2024-11-29 19:15 | PC.NURSE ---
Report received from VANIA Miguel. Assumed care of patient at this time.
--- NOTE | 2024-11-29 21:48 | ADMGEN ---
This patient, Naina Douglas, was admitted to IMU Room 201-01. Patient/family oriented to hospital policies and general routines including ID bracelet, bed and alarms, visiting hours, pain management, procedures, bathroom and other care routines, personal items, smoking policy, room service/diet, and visiting hours. Information on how to activate the Rapid Response Team has been discussed. Patient/Family are encouraged to report perceived risks to care and to ask questions if they do not understand what they are told or what they should do.
[2024-11-29] MEDS: ALPRAZolam (*CRX) 0.25 MG TABLET PO (22:56)
[2024-11-30] VITALS (7 sets, daily range): BP systolic 122–130; BP diastolic 42–49; PULSE 75–86; RESP 16; TEMP 36.4–36.6; O2SAT 95–96
[2024-11-30] MEDS: ROSUVASTATIN 10 MG TABLET BY MOUTH (00:03)
[2024-11-30 04:46] LABS: Anion Gap 6 mmol/L (4-12); Blood Urea Nitrogen 17 mg/dL (7-17); Calcium 8.7 mg/dL (8.4-10.2); Carbon Dioxide 27 mmol/L (22-30); Chloride 105 mmol/L (98-107); Estimated CRCL calculation 56 ml/min; Estimated Glomerular Filt Rate > 60; Glucose 107 mg/dL (65-110); Magnesium 2.2 mg/dL (1.6-2.3); Potassium 3.7 mmol/L (3.4-5.0); Sodium 138 mmol/L (137-145)
[2024-11-30] MEDS: LEVOTHYROXINE SODIUM 50 MCG TABLET BY MOUTH (06:33)
[2024-11-30 07:22] LABS: Glucose Point of Care 147 mg/dl (65-105)
--- NOTE | 2024-11-30 08:26 | PM.CNCAR ---
Assessment and Plan Assessment and plan (1) Chest pain: Code(s): R07.9 - Chest pain, unspecified Status: Acute Assessment and Plan: Probably either stress, GERD or musculoskeletal. She has been r/o for [place] by serial troponin and EKG. Her CTA of heart at [facility] shows normal coronaries. May d/c home from cardiology standpoint and have her f/u with me in next 3-4 weeks. (2) Hypertension: Code(s): I10 - Essential (primary) hypertension Status: Acute Assessment and Plan: Stable. (3) Hyperlipidemia: Code(s): E78.5 - Hyperlipidemia, unspecified Status: Acute Assessment and Plan: On Rosuvastatin. History of Present Illness History of Present Illness Consult date/time: 11/30/24 08:26 Reason For Visit: Chest Pain Narrative: 73 yr old woman who is my regular cardiology patient and a patient of Dr. Carpenter presents to ER for chest pain. She has a history of DM, hypertension, dyslipidemia, had covid on 08/13/20. Reports she noted sharp pain on right side of chest yesterday that then resolved but had some chest pressure that concerned her so she came in by private vehicle to ER. No more chest pain since. She is under stress as her a week ago and his is tomorrow. She also admits to heartburn. She reports SOLIMAN walking short distances. She reports ongoing chest pain for the past year with mild discomfort below her left rib cage. Denies orthopnea, PND, edema, dizziness. Cardiovascular Procedures 10/17/24 CTA of heart at [facility]: Normal coronaries. Calcium score 7. Large hiatal hernia. Echo/MUGA:: 04/09/23 Echo: 60-65%, grade I diastolic dysfunction (E/e' 10), trace AI, mild MR. 06/12/19 [facility] Echo: EF 60%, grade I diastolic dysfunction, mod AI, mild TR. Electrophysiology:: 11/16/20 EKG: Sinus rhythm, borderline ST-T wave in anterior leads. 08/13/20 EKG: Sinus tachycardia at 108 bpm. Stress Tests:: 10/10/23 Stress echo: Abnormal with [address] depression in leads II, III, aVF, V3-V6. Subtle anteroseptal hypokinesis. 11/17/20 Stress echo: Negative; exercised for 4 minutes. 08/13/20 CTA chest: No pulm embolism. Mild emphysema. Atypical pneumonia. Mod hiatal hernia. Review of Systems Review of Systems: All systems reviewed & are unremarkable except as noted in HPI and below Constitutional: Constitutional: Reports as per HPI, Denies chills and Denies fever(s) Cardiovascular: Cardiovascular: Reports as per HPI, Reports chest pain and Denies irregular heart rhythm Respiratory: Respiratory: Reports as per HPI and Denies dyspnea Gastrointestinal: Gastrointestinal: Reports as per HPI and Reports heartburn Genitourinary: Genitourinary: Reports as per HPI and Denies dysuria Musculoskeletal: Musculoskeletal: Reports as per HPI Neurologic: Reports as per HPI, Denies dizziness and Denies syncope [facility] Past Medical History Medical History (Updated 11/29/24 @ 16:47 by Princess Ivey PA-C) Gastroesophageal reflux disease Gastric polyp Peptic ulcer Aortic regurgitation Hiatal hernia Rolle esophagus Adenomatous colon polyp Type 2 diabetes mellitus Hyperlipidemia Hypertension Compression fracture of T12 vertebra Memory deficit Traumatic compression fracture of eleventh thoracic vertebra Irritable bowel syndrome with diarrhea Hypothyroidism Goiter Arthritis Surgical History Surgical History History of bilateral breast biopsy benign History of bilateral cataract extraction History of cardiac catheterization History of hysterectomy (1999) History of appendectomy (1979) History of tonsillectomy (1974) History of cataract surgery (2003) History of cholecystectomy (1989) Family History Family History Father , 65 Emphysema, unspecified Mother , 43 Heart attack Social History Social History (Updated 11/29/24 @ 16:48 by Princess Ivey PA-C) Social History: Surrogate medical decision maker: Vale Trejo, daughter. Code status: Full code. Smoking packs per day: 1 Smoking cigarettes per day: 20.0 Years smoked: 20 Smoking pack-years: 20.00 Smoking status: Former smoker Tobacco type: cigarettes Second hand tobacco smoke exposure: No Additional smoking assessment comments: Quit in 1973. Alcohol intake: former Substance use: former Substance use type: does not use Do You Feel Safe in your Home?: Yes Lack of Transportation: No Lack of Food: Never True Current Housing: I Have Housing Concerned About Future Housing: No Difficulty Paying Gas/Electric Bills: No Difficulty Paying for Meds: No Currently Unemployed: No Education: High School Diploma/GED Difficulty w/ Childcare or Family Care: No Living arrangements: with family Additional living arrangements comments: as of November 2024. Three children. 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 Spiritual care concerns: No Meds Home Medications and Allergies Home Medications ?Medication ?Instructions ?Recorded ?Confirmed ?Type aspirin 81 mg chewable tablet 81 mg PO HS 11/19/19 11/29/24 History blood-glucose meter (OneTouch #1 ea 04/30/20 11/29/24 Rx Ultra2 Meter kit) lancets 33 gauge (OneTouch Delica #100 ea 05/27/21 11/29/24 Rx Lancets) blood sugar diagnostic #100 ea 04/10/22 11/29/24 Rx rosuvastatin 10 mg tablet See Rx Instructions .Route 08/02/23 11/29/24 Rx .COMPLEX #90 tabs ferrous sulfate 325 mg (65 mg 325 mg PO DAILY #90 tabs 11/27/23 11/29/24 Rx iron) tablet pantoprazole 40 mg tablet,delayed 40 mg PO BID #180 tabs 11/27/23 11/29/24 Rx release empagliflozin 10 mg tablet 10 mg PO DAILY 04/16/24 11/29/24 History (Jardiance) pioglitazone 15 mg tablet 15 mg PO DAILY 04/16/24 11/29/24 History lisinopril 5 mg tablet 5 mg PO QAM #90 tabs 07/02/24 11/29/24 Rx levothyroxine 50 mcg tablet See Rx Instructions .Route 09/30/24 11/29/24 Rx .COMPLEX #90 tabs Allergies Allergy/AdvReac Type Severity Reaction Status Date / Time propoxyphene Allergy Severe TONGUE Verified 11/29/24 20:35 SWELLING AND STOPPED BREATHING Vital Signs Vital Signs - 24 hr 11/29/24 10:44 11/29/24 11:01 11/29/24 11:01 Temperature 97.8 F Pulse Rate 77 84 Respiratory Rate 16 16 Blood Pressure 164/62 H 134/56 L Pulse Oximetry 99 99 99 Oxygen Delivery Room Air Room Air 11/29/24 11:16 11/29/24 11:31 11/29/24 11:46 Temperature Pulse Rate 87 77 81 Respiratory Rate 16 17 15 Blood Pressure 146/69 H 138/60 133/55 L Pulse Oximetry 95 96 96 Oxygen Delivery 11/29/24 12:01 11/29/24 12:38 11/29/24 12:46 Temperature Pulse Rate 78 82 77 Respiratory Rate 18 16 18 Blood Pressure 133/60 121/73 130/62 Pulse Oximetry 98 96 97 Oxygen Delivery 11/29/24 13:01 11/29/24 13:16 11/29/24 13:31 Temperature Pulse Rate 74 74 75 Respiratory Rate 12 13 12 Blood Pressure 131/53 L 118/51 L 136/59 L Pulse Oximetry 94 94 99 Oxygen Delivery 11/29/24 13:46 11/29/24 14:01 11/29/24 14:16 Temperature Pulse Rate 80 79 92 Respiratory Rate 12 19 19 Blood Pressure 119/55 L 124/60 103/56 L Pulse Oximetry 96 97 95 Oxygen Delivery 11/29/24 14:31 11/29/24 14:46 11/29/24 15:01 Temperature Pulse Rate 80 80 76 Respiratory Rate 15 19 16 Blood Pressure 141/62 H 149/60 H 124/56 L Pulse Oximetry 97 95 95 Oxygen Delivery 11/29/24 15:46 11/29/24 17:00 11/29/24 17:45 Temperature Pulse Rate 96 99 95 Respiratory Rate 16 16 18 Blood Pressure 113/61 Pulse Oximetry 97 95 97 Oxygen Delivery 11/29/24 18:00 11/29/24 18:16 11/29/24 18:17 Temperature Pulse Rate 101 H 97 97 Respiratory Rate 19 18 18 Blood Pressure 107/54 L Pulse Oximetry 97 94 95 Oxygen Delivery 11/29/24 18:45 11/29/24 19:00 11/29/24 19:01 Temperature Pulse Rate 105 H 106 H 102 H Respiratory Rate 19 21 H 20 Blood Pressure 131/73 Pulse Oximetry 95 95 96 Oxygen Delivery 11/29/24 19:15 11/29/24 19:30 11/29/24 19:45 Temperature Pulse Rate 102 H 97 99 Respiratory Rate 16 23 H 20 Blood Pressure Pulse Oximetry 97 95 94 Oxygen Delivery 11/29/24 19:46 11/29/24 20:00 11/29/24 20:15 Temperature Pulse Rate 94 90 93 Respiratory Rate 18 19 20 Blood Pressure 123/64 Pulse Oximetry 96 95 95 Oxygen Delivery 11/29/24 20:30 11/29/24 20:31 11/29/24 20:45 Temperature Pulse Rate 84 95 93 Respiratory Rate 14 28 H 18 Blood Pressure 126/55 L Pulse Oximetry 94 97 95 Oxygen Delivery 11/29/24 21:00 11/29/24 21:15 11/29/24 21:16 Temperature Pulse Rate 101 H 96 96 Respiratory Rate 18 17 18 Blood Pressure 118/50 L Pulse Oximetry 94 94 95 Oxygen Delivery 11/29/24 21:57 11/29/24 22:00 11/29/24 23:28 Temperature 98.1 F 97.6 F Pulse Rate 94 93 76 Respiratory Rate 16 16 Blood Pressure 132/48 L 113/41 L Pulse Oximetry 97 95 Oxygen Delivery 11/30/24 00:00 11/30/24 00:00 11/30/24 02:00 Temperature Pulse Rate 85 75 Respiratory Rate Blood Pressure Pulse Oximetry Oxygen Delivery Room Air 11/30/24 03:37 11/30/24 04:00 11/30/24 04:00 Temperature 97.5 F L Pulse Rate 81 78 Respiratory Rate 16 Blood Pressure 122/42 L Pulse Oximetry 96 Oxygen Delivery Room Air 11/30/24 06:00 11/30/24 08:00 Temperature 97.8 F Pulse Rate 75 78 Respiratory Rate 16 Blood Pressure 130/49 L Pulse Oximetry 95 Oxygen Delivery Exam Const: General: cooperative, healthy appearing and comfortable Resp: Auscultation: clear to auscultation bilaterally, no crackles, no rales, no rhonchi and no wheezes Cardio: Rate: regular rate Rhythm: regular rhythm Heart sounds: no murmurs Peripheral pulses: dorsalis pedis present GI: GI Palp: No abdominal tenderness and Yes Soft to palpation Neuro: General: oriented to person, oriented to place and oriented to time Extrem: Right lower extremity: no edema Left lower extremity: no edema Results Labs and Meds 11/29/24 10:59 11/30/24 03:50 Lab results: Cardiac Enzymes 11/29/24 11/29/24 11/29/24 Range/Units 10:59 13:58 17:04 AST 32 (14-36) U/L Troponin I < 0.012 < 0.012 < 0.012 (0.000-0.034) ng/mL Coagulation 11/29/24 Range/Units 10:59 PT 12.6 (11.1-14.7) Seconds APTT 26.1 (22.3-36.8) Seconds CBC 11/29/24 Range/Units 10:59 WBC 5.2 (4.5-10.0) K/mm3 RBC 4.31 (4.2-5.4) M/mm3 Hgb 13.3 (12.0-15.0) g/dL Hct 40.5 (37.0-47.0) % Plt Count 257 (150-375) k/mm3 Lymph # (Auto) 1.78 (0.9-3.2) K/mm3 Noble # (Auto) 0.4 (0.1-0.6) K/mm3 Eos # (Auto) 0.1 (0-0.3) K/mm3 Baso # (Auto) 0.0 (0.0-0.1) K/mm3 Comprehensive Metabolic Panel 11/29/24 11/30/24 Range/Units 10:59 03:50 Sodium 138 138 (137-145) mmol/L Potassium 4.3 3.7 (3.4-5.0) mmol/L Chloride 102 105 (98-107) mmol/L Carbon Dioxide 27 27 (22-30) mmol/L BUN 18 H 17 (7-17) mg/dL Creatinine 0.70 0.59 L (0.7-1.0) mg/dL Glucose 110 107 (65-110) mg/dL Calcium 9.6 8.7 (8.4-10.2) mg/dL AST 32 (14-36) U/L ALT 17 (6-35) U/L Alkaline Phosphatase 82 (38-126) U/L Total Protein 7.0 (6.3-8.2) g/dL Albumin 4.1 (3.5-5.1) g/dL Intake and Output 11/29/24 11/30/24 11/30/24 23:59 07:59 15:59 Other: # Unmeasured Voids 1 Patient Weight 11/30/24 23:59 Weight 61.6 kg
--- NOTE | 2024-11-30 09:37 | PM.DS ---
DS: Admitting Diagnosis Discharge Date 11/30/2024 Admitting Diagnosis Chest pain DS: Discharge Diagnosis Discharge Diagnosis (1) Chest pain: Code(s): R07.9 - Chest pain, unspecified Status: Acute (2) Hypertension: Code(s): I10 - Essential (primary) hypertension Status: Acute (3) Hyperlipidemia: Code(s): E78.5 - Hyperlipidemia, unspecified Status: Acute DS: Summary Hospital Course Hospital Course: 73-year-old female presented with complaint of chest pain 3 sets of cardiac enzymes are negative and there are no acute changes on EKG patient was seen by her employment coordinator suspect most likely secondary to stress or musculoskeletal, recently patient had a CTA of the chest and showed patent coronary artery, patient is clinically stable pain has resolved, will discharge the patient today Time Spent with Patient Time attestation: Total time spent providing and/or coordinating discharge services: DS: Data Data Completed and Pending Labs on day of discharge: Labs from last 24 hours 11/30/24 11/29/24 11/29/24 03:50 22:10 17:04 WBC RBC Hgb Hct MCV MCH MCHC RDW Plt Count MPV Immature Gran % (Auto) Neut % (Auto) Lymph % (Auto) Benzie % (Auto) Eos % (Auto) Baso % (Auto) Lymph # (Auto) Benzie # (Auto) Eos # (Auto) Baso # (Auto) Abs Immat Gran (auto) Absolute Neuts (auto) Absolute Nucleated RBC Nucleated RBC % PT INR APTT D-Dimer Sodium 138 Potassium 3.7 Chloride 105 Carbon Dioxide 27 Anion Gap 6 BUN 17 Creatinine 0.59 L Estim Creat Clear Calc 56 Estimated GFR > 60 Glucose 107 POC Capillary Glucose 147 H Calcium 8.7 Magnesium 2.2 Total Bilirubin AST ALT Alkaline Phosphatase Troponin I < 0.012 NT-Pro-B Natriuret Pep Total Protein Albumin Lipase TSH (Reflex) 2.540 11/29/24 11/29/24 13:58 10:59 WBC 5.2 RBC 4.31 Hgb 13.3 Hct 40.5 MCV 94.0 MCH 30.9 MCHC 32.8 RDW 12.0 Plt Count 257 MPV 9.1 Immature Gran % (Auto) 0.6 H Neut % (Auto) 55.8 Lymph % (Auto) 34.0 Benzie % (Auto) 6.9 Eos % (Auto) 2.3 Baso % (Auto) 0.4 Lymph # (Auto) 1.78 Benzie # (Auto) 0.4 Eos # (Auto) 0.1 Baso # (Auto) 0.0 Abs Immat Gran (auto) 0.03 Absolute Neuts (auto) 2.9 Absolute Nucleated RBC 0.000 Nucleated RBC % 0.0 PT 12.6 INR 0.9 APTT 26.1 D-Dimer 0.25 Sodium 138 Potassium 4.3 Chloride 102 Carbon Dioxide 27 Anion Gap 9 BUN 18 H Creatinine 0.70 Estim Creat Clear Calc 48 Estimated GFR > 60 Glucose 110 POC Capillary Glucose Calcium 9.6 Magnesium Total Bilirubin 0.6 AST 32 ALT 17 Alkaline Phosphatase 82 Troponin I < 0.012 < 0.012 NT-Pro-B Natriuret Pep 72 Total Protein 7.0 Albumin 4.1 Lipase 128 TSH (Reflex) Discharge Plan Discharge Attending physician on discharge: Joo Arenas Consulting providers: Kalyan Khan; Princess Ivey; Luis Matute; Shawn Alvarado; Kolton Freedman Discharging Clinician: Hosea Agosto Patient Disposition: Home, Self-Care Activity: as tolerated Diet: heart healthy Discharge Instructions: patient to follow discharge care instruction from her employment coordinator and follow up as schedule, patient to follow up with her primary care provider as soon as possible. Patient is instructed if any symptoms worsen to go to nearest ER. Patient Instructions: Antibiotic Form, Chest Pain (DC) Patient Language: Croatian Stand Alone Forms: General Discharge Information Follow-up/Referrals: Jame,Chip Renee MD [Primary Care Provider] - Kalyan Khan DO [Physician] - Discharge Medications: New alprazolam 0.25 mg Tablet 0.25 mg PO TID PRN (Reason: Anxiety) Qty: 15 0RF Continued aspirin 81 mg tablet,chewable 81 mg PO HS pantoprazole 40 mg tablet,delayed release (DR/EC) 40 mg PO BID Qty: 180 1RF ferrous sulfate 325 mg (65 mg iron) tablet 325 mg PO DAILY Qty: 90 1RF pioglitazone 15 mg tablet 15 mg PO DAILY Jardiance 10 mg tablet 10 mg PO DAILY (DME) blood-glucose meter [Smartzer Ultra2 Meter] Kit See Rx Instructions .ROUTE .MEDSUPPLY Qty: 1 1RF Rx Instructions: test once per week (DME) lancets [OneTouch Delica Lancets] 33 gauge misc See Rx Instructions .ROUTE .MEDSUPPLY Qty: 100 3RF Rx Instructions: use to test once daily (DME) blood sugar diagnostic Strip See Rx Instructions .ROUTE .MEDSUPPLY Qty: 100 3RF Rx Instructions: use to test once daily rosuvastatin 10 mg tablet See Rx Instructions .ROUTE .COMPLEX Qty: 90 1RF Dose Instruction: TAKE 1 TABLET AT BEDTIME Rx Instructions: TAKE 1 TABLET AT BEDTIME lisinopril 5 mg tablet 5 mg PO QAM Qty: 90 3RF levothyroxine 50 mcg tablet See Rx Instructions .ROUTE .COMPLEX Qty: 90 1RF Dose Instruction: TAKE 1 TABLET DAILY Rx Instructions: TAKE 1 TABLET DAILY Date of admission: 11/29/24 13:58 Primary Care Provider: Jame,Chip Renee Admitting Provider: Joo Arenas Attending physician on admission: Hosea Agosto Condition: Stable
[2024-11-30] MEDS: lisinopriL 5 MG TABLET PO (10:02)
[2024-11-30] MEDS: ASPIRIN 81 MG CHEWABLE TABLET PO (10:02)
[2024-11-30] MEDS: PANTOPRAZOLE 40 MG TABLET PO (10:03)
[2024-11-30] MEDS: EMPAGLIFLOZIN 10 MG TABLET PO (10:03)
[2024-11-30] MEDS: PIOGLITAZONE HCL 15 MG TAB PO (10:03)
--- NOTE | 2024-11-30 11:09 | PC.NURSE ---
discussed discharge paperwork with patient and patient's daughter, including medications; last dose given and next dose due. Patient verbalizes understanding. Patient being discharged home, via personal vehicle with family.
== END 2024-11-30 11:00 | disposition home or self-care (01) ==
LOC: ANHED 15:05 → ANHIMU 11-30 09:33
PROVIDERS: Physician Assistant; Admitting Provider General Practice; Emergency Provider Emergency Medicine; PCP Family Medicine; Visit Provider Family Medicine
DX: R07.9 Chest pain, unspecified (principal); I10 Essential (primary) hypertension; E78.5 Hyperlipidemia, unspecified; E11.9 Type 2 diabetes mellitus without complications; E03.9 Hypothyroidism, unspecified; K21.9 Gastro-esophageal reflux disease without esophagitis; K22.70 Barrett's esophagus without dysplasia; K44.9 Diaphragmatic hernia without obstruction or gangrene; J43.9 Emphysema, unspecified; R06.00 Dyspnea, unspecified; K58.9 Irritable bowel syndrome, unspecified; F43.29 Adjustment disorder with other symptoms; F41.9 Anxiety disorder, unspecified; R41.3 Other amnesia; D50.9 Iron deficiency anemia, unspecified; E04.9 Nontoxic goiter, unspecified; Z98.42 Cataract extraction status, left eye; Z87.11 Personal history of peptic ulcer disease; Z87.81 Personal history of (healed) traumatic fracture; Z87.891 Personal history of nicotine dependence; Z98.41 Cataract extraction status, right eye; Z90.49 Acquired absence of other specified parts of digestive tract; Z90.710 Acquired absence of both cervix and uterus; Z79.82 Long term (current) use of aspirin; Z79.84 Long term (current) use of oral hypoglycemic drugs
CPT/HCPCS: 36415; 71045; 80048; 80053; 82948; 83690; 83735; 83880; 84443; 84484; 85025; 85380; 85610; 85730; 93005; 93970; 99285; A9270; G0378

== ENCOUNTER 2025-04-13 13:08 | Outpatient (CLI) | payer MEDICARE, SELFPAY ==
--- NOTE | ~2025-04-13 | MM_ITS ---
EXAMINATION: MM screening tiffany BI w kristel HISTORY: Screening TECHNIQUE: Craniocaudal and mediolateral oblique 3-D tomosynthesis images were obtained and synthetic 2-D images were generated. CAD analysis was submitted and interpreted. COMPARISON: Comparison to multiple prior studies sequentially, with oldest reviewed study dated 05/20. BREAST PARENCHYMAL COMPOSITION: Not dense: There are scattered areas of fibroglandular density. FINDINGS: There is no evidence of suspicious mass, calcification, or architectural distortion to sugg est malignancy in either breast. There has been no suspicious interval change. IMPRESSION: 1. No mammographic evidence of malignancy. 2. Recommend routine screening mammography in one year. BI-RADS Category 1: Negative Reviewed, dictated and finalized at location B.
== END 2025-04-13 13:09 | disposition home or self-care (01) ==
LOC: MICIMG 13:09
PROVIDERS: PCP Family Medicine; Visit Provider Family Medicine
DX: Z12.31 Encounter for screening mammogram for malignant neoplasm of breast (principal)
CPT/HCPCS: 77063; 77067